=== PATIENT | male | born 1940 | race Caucasian/White ===

== ENCOUNTER 2022-02-01 23:09 | Inpatient (IN) ==
--- NOTE | 2022-02-01 23:28 | Emergency Department Note ---
History of Present Illness General Chief complaint: Hip Pain Time Seen by Provider: 02/01/22 23:15 History of Present Illness 81-year-old male presents reportedly from dementia unit had a nonsyncopal fall today was complaining of right hip pain. Per EMS patient had an outpatient mobile x-ray of his right hip which showed an acute impacted right intertrochanteric hip fracture. Patient is a very poor historian to his current presentation. Patient does complain of right hip pain when the right hip is palpated. There was no reported head trauma according to EMS. The patient reportedly is not on blood thinners. Home Medications Medication Instructions Recorded Confirmed Type acetaminophen 325 mg tablet 650 mg PO Q6H PRN FEVER/PAIN 02/01/22 02/02/22 History (Tylenol) albuterol sulfate 90 mcg/actuation 2 puff inhalation Q6H PRN Wheezing 02/01/22 02/02/22 History aerosol inhaler (Ventolin HFA) ascorbic acid (vitamin C) 500 mg 500 mg PO DAILY 02/01/22 02/02/22 History tablet (Vitamin C) ferrous sulfate 325 mg (65 mg 325 mg PO DAILY 02/01/22 02/02/22 History iron) tablet haloperidol lactate 2 mg/mL oral 2 mg PO Q8H PRN Agitation 02/01/22 02/02/22 History concentrate latanoprost 0.005 % eye drops 1 drp OPB PM 02/01/22 02/02/22 History omeprazole 20 mg capsule,delayed 20 mg PO DAILY 02/01/22 02/02/22 History release quetiapine 50 mg tablet,extended 50 mg PO BID 02/01/22 02/02/22 History release 24 hr (Seroquel XR) tadalafil 5 mg tablet 5 mg PO HS 02/01/22 02/02/22 History tamsulosin 0.4 mg capsule (Flomax) 0.4 mg PO DAILY 02/01/22 02/02/22 History umeclidinium 62.5 mcg-vilanterol 1 inh inhalation DAILY 02/01/22 02/02/22 History 25 mcg/actuation powdr for inhalation (Anoro Ellipta) Allergies Allergy/AdvReac Type Severity Reaction Status Date / Time fluticasone Allergy Unknown ON MED LIST Verified 02/01/22 23:57 [From Advair Diskus] salmeterol Allergy Unknown ON MED LIST Verified 02/01/22 23:57 [From Advair Diskus] Past Med/Surg History Social History Smoking Status: Former smoker Tobacco Type: Cigarettes Feels Safe at Home: Yes Immunizations: Past medical history dementia; social history lives in a dementia unit; nursing notes were reviewed and paperwork from the long term was reviewed by me Review of Systems Unobtainable due to cognitive status Physical Exam Vital Signs Vital Signs - 24 hr 02/01/22 23:29 02/02/22 00:09 Temperature 36.8 C Temperature Source Oral Pulse Rate 90 Pulse Rate [Apical] 90 Pulse Rhythm Regular Pulse Rhythm [Apical] Regular Pulse Strength Normal Pulse Strength [Apical] Normal Respiratory Rate 18 18 Respiratory Effort / Characteristics Non-Labored Spontaneous Non-Labored Spontaneous Respiratory Depth Normal Normal Respiratory Pattern Regular Regular Blood Pressure 134/55 L Blood Pressure [Right Arm] 139/53 L Blood Pressure Mean 81 Blood Pressure Mean [Right Arm] 81 Blood Pressure Position [Right Arm] Lying Pulse Oximetry 94 90 Oxygen Delivery Method Room Air Room Air Sepsis Recent Fever Within 48 Hours No Sepsis New/Unexplained Change in Mental Status No Sepsis Action Taken by Nursing No Action Required GENERAL: Patient is awake alert in no acute distress patient is resting comfortably and showing no signs of anxiety EYES: The conjunctivae are clear. The pupils are round and reactive. EARS, NOSE, MOUTH AND THROAT: The nose is without any evidence of any deformity. Mucous membranes are moist. Tongue is midline. NECK: The neck is nontender and supple. Full range of motion and there is no tenderness midline Head exam reveals no obvious trauma RESPIRATORY: Normal respiratory effort is noted there is no evidence of wheezing rhonchi or rales CARDIOVASCULAR: Regular rate and rhythm noted there no murmurs rubs or gallops normal S1 normal S2. GASTROINTESTINAL: The abdomen is soft. Abdomen is nontender. PELVIS: The Pelvis is stable. No tenderness to palpation is noted. BACK: No midline tenderness or or step-off noted range of motion in flexion e xtension as well as rotation no signs of muscle spasm noted MUSCULOSKELETAL/EXTREMITIES: Right right lower extremity is shortened and slightly rotated patient is neurovascularly intact distally left lower extremity is intact and normal exam SKIN: There is no obvious evidence of any rash. There are no petechiae, pallor or cyanosis noted. NEUROLOGIC: Patient is awake alert and oriented x1 Course Reevaluation(s) Reevaluation #1: Resting in no distress after IV fentanyl Time: 00:59 Consultations Consultation #1: Rodney hospitalist, Dr Campos for admission Time: 00:59 Administered Medications Discontinued Medications Fentanyl Citrate (Fentanyl Citrate 100 Mcg/2 Ml Vial) 25 mcg IV NOW STA Stop: 02/01/22 23:48 Last Admin: 02/02/22 00:04 Dose: 25 mcg Documented By: RUT Medical Decision Making Medical Records Attestation: I reviewed the patient's medical records. Home Medications Current Medication List: was personally reviewed by me Laboratory Data Attestation: I reviewed the patient's lab results. Result diagrams: 02/01/22 23:35 02/01/22 23:35 Lab Results 02/01/22 02/01/22 02/01/22 Range/Units 23:35 23:35 23:35 WBC 11.71 H (4.8-10.8) K/ul RBC 2.90 L (4.63-6.08) M/uL Hgb 9.3 L (14.0-18.0) g/dl Hct 27.2 L (40.1-51.0) % MCV 93.8 (80.0-100.0) fL MCH 32.1 (25.0-34.0) pg MCHC 34.2 (32.0-36.0) g/dL RDW Std Deviation 46.9 H (36.4-46.3) fL RDW Coeff of Silvino 13.6 (11.5-14.5) % Plt Count 275 (130-400) K/uL MPV 9.0 L (9.4-12.4) fL Immature Gran % (Auto) 0.5 % Neut % (Auto) 81.2 % Lymph % (Auto) 7.6 % [place] % (Auto) 10.6 % Eos % (Auto) 0.0 % Baso % (Auto) 0.1 % Neut # (Auto) 9.51 H (1.4-6.5) K/uL Lymph # (Auto) 0.89 L (1.2-3.4) K/uL [place] # (Auto) 1.24 H (0.24-0.82) K/uL Eos # (Auto) 0.00 (0-0.50) K/uL Baso # (Auto) 0.01 (0-0.2) K/uL Immature Gran # (Auto) 0.06 H (0.00-0.02) K/uL PT 10.9 (9.0-12.0) Seconds INR 1.0 (0.9-1.1) APTT 33.6 H (21.0-31.0) Seconds PTT Ratio 1.2 Sodium 133 L (136-145) mmol/L Potassium 4.8 (3.5-5.1) mmol/L Chloride 99 (98-107) mmol/L Carbon Dioxide 26 (21-32) mmol/L Anion Gap 8 (3-11) BUN 41 H (6-23) mg/dl Creatinine 1.24 (0.6-1.4) mg/dl Est Cr Clr Drug Dosing 46.1 ml/min Est GFR ( Amer) 63.7 ml/min Est GFR (Non-Af Amer) 54.9 ml/min BUN/Creatinine Ratio 33.1 H (10-20) Glucose 113 H (70-99(Fasting)) mg/dl Calcium 8.8 (8.5-10.1) mg/dl Total Bilirubin 0.9 (0.2-1.0) mg/dl AST 12 L (13-39) U/L ALT 10 (7-52) U/L Alkaline Phosphatase 80 (34-104) U/L Total Protein 5.8 L (6.0-8.3) gm/dl Albumin 3.6 (3.4-5.0) gm/dl Globulin 2.2 L (2.5-4.0) gm/dl Albumin/Globulin Ratio 1.6 (0.9-2) Urine Color Urine Appearance (Clear) Urine pH (4.5-7.5) Ur Specific [place] (1.000-1.030) Urine Protein (Negative) Urine Glucose (UA) (Negative) Urine Ketones (Negative) Urine Blood (Negative) Urine Nitrite (Negative) Urine Bilirubin (Negative) Urine Urobilinogen (Negative) Ur Leukocyte Esterase (Negative) SARS-CoV-2, RNA, NAAT (NEGATIVE) 02/01/22 02/01/22 Range/Units 23:55 23:58 WBC (4.8-10.8) K/ul RBC (4.63-6.08) M/uL Hgb (14.0-18.0) g/dl Hct (40.1-51.0) % MCV (80.0-100.0) fL MCH (25.0-34.0) pg MCHC (32.0-36.0) g/dL RDW Std Deviation (36.4-46.3) fL RDW Coeff of Silvino (11.5-14.5) % Plt Count (130-400) K/uL MPV (9.4-12.4) fL Immature Gran % (Auto) % Neut % (Auto) % Lymph % (Auto) % [place] % (Auto) % Eos % (Auto) % Baso % (Auto) % Neut # (Auto) (1.4-6.5) K/uL Lymph # (Auto) (1.2-3.4) K/uL [place] # (Auto) (0.24-0.82) K/uL Eos # (Auto) (0-0.50) K/uL Baso # (Auto) (0-0.2) K/uL Immature Gran # (Auto) (0.00-0.02) K/uL PT (9.0-12.0) Seconds INR (0.9-1.1) APTT (21.0-31.0) Seconds PTT Ratio Sodium (136-145) mmol/L Potassium (3.5-5.1) mmol/L Chloride (98-107) mmol/L Carbon Dioxide (21-32) mmol/L Anion Gap (3-11) BUN (6-23) mg/dl Creatinine (0.6-1.4) mg/dl Est Cr Clr Drug Dosing ml/min Est GFR ( Amer) ml/min Est GFR (Non-Af Amer) ml/min BUN/Creatinine Ratio (10-20) Glucose (70-99(Fasting)) mg/dl Calcium (8.5-10.1) mg/dl Total Bilirubin (0.2-1.0) mg/dl AST (13-39) U/L ALT (7-52) U/L Alkaline Phosphatase (34-104) U/L Total Protein (6.0-8.3) gm/dl Albumin (3.4-5.0) gm/dl Globulin (2.5-4.0) gm/dl Albumin/Globulin Ratio (0.9-2) Urine Color Yellow Urine Appearance Clear (Clear) Urine pH 7.5 (4.5-7.5) Ur Specific [place] 1.017 (1.000-1.030) Urine Protein Negative (Negative) Urine Glucose (UA) Negative (Negative) Urine Ketones Negative (Negative) Urine Blood Negative (Negative) Urine Nitrite Negative (Negative) Urine Bilirubin Negative (Negative) Urine Urobilinogen Negative (Negative) Ur Leukocyte Esterase Negative (Negative) SARS-CoV-2, RNA, NAAT NEGATIVE (NEGATIVE) Imaging Data Attestation: I personally reviewed and interpreted this imaging study as follows: My Impression: Chest x-ray interpreted by me negative for infiltrate, right hip x-rays interpreted by me positive for intertrochanteric hip fracture ECG Data Attestation: I personally reviewed and interpreted this ECG as follows: Additional Comments: EKG interpreted by me normal sinus rhythm rate of 91 normal intervals normal axis poor baseline no obvious ST segment elevation or depression MDM Narrative Medical decision making differential diagnosis includes right hip fracture sprain strain contusion. Plan is to check labs, check x-ray, Villarreal catheter, admit to the hospitalist with orthopedic consultation Patient was evaluated for a fall, with right hip pain and was found to have a right intertrochanteric hip fracture. Catheter was placed. Patient is not on blood thinners. Patient did not patient will be admitted for the medicine team to evaluate and consultation to orthopedic surgery. Impression & Plan Hip fracture, intertrochanteric Discharge Plan Visit Data Chief Complaint: Hip Pain ED Provider: Chase Parks Discharge Problem: Hip fracture, intertrochanteric Patient Disposition: Being Evaluated by Hospitalist Forms Stand Alone Forms: [facility] Prescriptions Prescriptions: No Action latanoprost 0.005 % Drops 1 drp OPB PM acetaminophen [Tylenol] 325 mg Tablet 650 mg PO Q6H MDD 3 GRAMS/24 HOURS PRN (Reason: FEVER/PAIN) ascorbic acid (vitamin C) [Vitamin C] 500 mg Tablet 500 mg PO DAILY tamsulosin [Flomax] 0.4 mg Capsule 0.4 mg PO DAILY ferrous sulfate 325 mg (65 mg iron) Tablet 325 mg PO DAILY omeprazole 20 mg Capsule,Delayed Release(Dr/Ec) 20 mg PO DAILY albuterol sulfate [Ventolin HFA] 90 mcg/actuation Hfa Aerosol Inhaler 2 puff INHALATION Q6H PRN (Reason: Wheezing) haloperidol lactate 2 mg/mL Concentrate 2 mg PO Q8H PRN (Reason: Agitation) tadalafil 5 mg Tablet 5 mg PO HS quetiapine [Seroquel XR] 50 mg Tablet Extended Release 24 Hr 50 mg PO BID Anoro Ellipta 62.5-25 mcg/actuation Blister With Device 1 inh INHALATION DAILY Referrals Referrals: Marie Martin [Primary Care Provider] -
[2022-02-01] MEDS ORDERED: fentaNYL citrate 100 MCG/2 ML VIAL IV STA (23:47)
[2022-02-02 00:10] LABS: Basophils # (auto) 0.01 K/uL (0-0.2); Basophils % (auto) 0.1 %; Hematocrit (blood only) 27.2 % (40.1-51.0); Hemoglobin 9.3 g/dl (14.0-18.0); Immature Granulocytes # (auto) 0.06 K/uL (0.00-0.02); Immature Granulocytes % (auto) 0.5 %; Lymphocytes # (auto) 0.89 K/uL (1.2-3.4); Lymphocytes % (auto) 7.6 %; Mean Corpuscular Hemoglobin 32.1 pg (25.0-34.0); Mean Corpuscular Hgb Conc 34.2 g/dL (32.0-36.0); Mean Corpuscular Volume 93.8 fL (80.0-100.0); Monocytes # (auto) 1.24 K/uL (0.24-0.82); Monocytes % (auto) 10.6 %; Neutrophils # (auto) 9.51 K/uL (1.4-6.5); Neutrophils % (auto) 81.2 %; Platelet Count 275 K/uL (130-400); RDW Coefficient of Variation 13.6 % (11.5-14.5); RDW Standard Deviation 46.9 fL (36.4-46.3); White Blood Count 11.71 K/ul (4.8-10.8)
[2022-02-02 00:25] LABS: Appearance Urine Clear (Clear); Bilirubin Urine Negative (Negative); Blood Urine Negative (Negative); Color Urine Yellow; Glucose Urine UA Negative (Negative); Ketones Urine Negative (Negative); Leukocyte Esterase Urine Negative (Negative); Nitrite Urine Negative (Negative); Protein Urine Negative (Negative); Specific Gravity Urine 1.017 (1.000-1.030); Urobilinogen Urine Negative (Negative); pH Urine 7.5 (4.5-7.5)
[2022-02-02 00:30] LABS: Albumin Globulin Ratio 1.6 (0.9-2); Albumin Level 3.6 gm/dl (3.4-5.0); BUN Creatinine Ratio 33.1 (10-20); Bilirubin,Total 0.9 mg/dl (0.2-1.0); Calcium 8.8 mg/dl (8.5-10.1); Creatinine Clr Calc Pharmacy 46.1 ml/min; Est GFR (African American) 63.7 ml/min; Est GFR (Non-African American) 54.9 ml/min; Globulin 2.2 gm/dl (2.5-4.0); Potassium 4.8 mmol/L (3.5-5.1); Total Protein 5.8 gm/dl (6.0-8.3)
[2022-02-02 00:40] LABS: Partial Thromboplastin Ratio 1.2; Partial Thromboplastin Time 33.6 Seconds (21.0-31.0); Prothrombin Time 10.9 Seconds (9.0-12.0)
[2022-02-02] MEDS ORDERED: SODIUM CHLORIDE 0.9% 1000ML 1,000 ML IV ONE (01:01)
[2022-02-02] MEDS ORDERED: amLODIPine BESYLATE 5 MG TAB PO ONE (01:29)
--- NOTE | 2022-02-02 01:31 | History & Physical Report ---
Date of Service February 02, 2022 Assessment & Plan (1) Hip fracture, intertrochanteric: Plan: Secondary to fall Hypertensive urgency secondary to above Possible underlying hypertension given borderline cardiomegaly on CXR hx CVA COPD, pulmonary hypertension on tadalafil, oxygenation stable chronic anemia, when close to baseline dementia Hyperglycemia rule out DM past tobacco abuse Medical telemetry given elevated BP Initiate amlodipine Orthopedics consult Re: Right hip fracture N.p.o. until patient seen by Orthopedics in a.m. Acceptable risk for cardiac complications resulting from prospective procedure Revised Cardiac Risk Index (RCRI): 1. High-risk type of surgery (examples include vascular and any open intraperitoneal or intrathoracic procedures). No 2. History of ischemic heart disease (history of myocardial infarction or positive exercise test, current compliant of chest pain considered to be secondary to myocardial ischemia, use of nitrate therapy, or ECG with pathological Q waves; do not count prior coronary revascularization procedure unless one of the other criteria for ischemic heart disease is present). No 3. History of heart failure. No 4. History of cerebrovascular disease. Yes 5. Diabetes mellitus requiring treatment with insulin. No 6. Preoperative serum creatinine >2.0. No Pt has revised cardiac index score of 1 points. (Class II Risk.) 6% 30-day risk of , IA, or cardiac arrest. Acceptable risk for cardiac complications if surgery recommended by Orthopedics and patient/family agreeable to attendant procedural benefits and risks.. Delirium precautions, Haldol as needed Check hemoglobin A1c DVT prophylaxis. SCDs Re: Possible surgery Recommend pharmacologic anticoagulation once bleeding risk is deemed to be minimal and negligible pending Orthopedics evaluation. Full code as per patient daughter, Ms. Sarah Couch. She requests updates from providers through [phone]. Text document was generated using [employer] voice recognition software. It may contain grammatical or spelling errors. Kindly contact undersigned for clarification of any documentation item in question. History of Present Illness Chief Complaint: Right hip fracture on x-ray Primary Care Provider: Marie Martin History obtained from patient, family, and records. Limited history from patient secondary to dementia. Medical history significant for CVA, COPD, pulmonary hypertension, chronic anemia (baseline hemoglobin of 10), dementia, past tobacco abuse. Patient fell on the ground trying to sit down on a chair at the group home yesterday as per group home staff. Achy right hip pain, patient had trouble getting up. Head trauma, no LOC, no chest pain, no SOB. Outpatient pelvis x-ray showed acute impacted right intertrochanteric fracture. Patient sent to the ER for evaluation. SBP noted to be 180s at the ER. 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 Allergies Allergy/AdvReac Type Severity Reaction Status Date / Time fluticasone Allergy Unknown ON MED LIST Verified 02/01/22 23:57 [From Advair Diskus] salmeterol Allergy Unknown ON MED LIST Verified 02/01/22 23:57 [From Advair Diskus] Home Medications Medication Instructions Recorded Confirmed Type acetaminophen 325 mg tablet 650 mg PO Q6H PRN FEVER/PAIN 02/01/22 02/02/22 History (Tylenol) albuterol sulfate 90 mcg/actuation 2 puff inhalation Q6H PRN Wheezing 02/01/22 02/02/22 History aerosol inhaler (Ventolin HFA) ascorbic acid (vitamin C) 500 mg 500 mg PO DAILY 02/01/22 02/02/22 History tablet (Vitamin C) ferrous sulfate 325 mg (65 mg 325 mg PO DAILY 02/01/22 02/02/22 History iron) tablet haloperidol lactate 2 mg/mL oral 2 mg PO Q8H PRN Agitation 02/01/22 02/02/22 History concentrate latanoprost 0.005 % eye drops 1 drp OPB PM 02/01/22 02/02/22 History omeprazole 20 mg capsule,delayed 20 mg PO DAILY 02/01/22 02/02/22 History release quetiapine 50 mg tablet,extended 50 mg PO BID 02/01/22 02/02/22 History release 24 hr (Seroquel XR) tadalafil 5 mg tablet 5 mg PO HS 02/01/22 02/02/22 History tamsulosin 0.4 mg capsule (Flomax) 0.4 mg PO DAILY 02/01/22 02/02/22 History umeclidinium 62.5 mcg-vilanterol 1 inh inhalation DAILY 02/01/22 02/02/22 History 25 mcg/actuation powdr for inhalation (Anoro Ellipta) Past Med/Surg History Social History Smoking Status: Former smoker Tobacco Type: Cigarettes Feels Safe at Home: Yes Review of Systems Review of Systems: Could not be reliably obtained secondary to dementia Physical Exam Physical Exam: GENERAL: Demented, uncomfortable, hard of hearing, no respiratory distress SKIN: Normal color, warm HEENT: [place] palpebral conjunctivae, no ptosis, dry buccal mucosa NECK : Supple, no tenderness CHEST : Decreased breath sounds, no tenderness HEART : RRR, no obvious murmurs ABDOMEN: Some distention, nontender EXTREMITIES : Right hip tenderness, minimal LE swelling, no other conspicuous deformities noted NEUROLOGIC : Demented, no facial asymmetry, gait and stance not assessed Results & Data Results & Data ([facility]) Vital Signs (Past 12 Hours) Vital Signs Temp Pulse Pulse Resp BP BP Pulse Ox 02/02/22 00:09 90 18 139/53 L 90 02/01/22 23:29 36.8 C 90 18 134/55 L 94 O2 Del Method 02/02/22 00:09 Room Air 02/01/22 23:29 Room Air Laboratory Results Laboratory Results WBC 11.71 K/ul (4.8-10.8) H 02/01/22 23:35 RBC 2.90 M/uL (4.63-6.08) L 02/01/22 23:35 Hgb 9.3 g/dl (14.0-18.0) L 02/01/22 23:35 Hct 27.2 % (40.1-51.0) L 02/01/22 23:35 MCV 93.8 fL (80.0-100.0) 02/01/22 23:35 MCH 32.1 pg (25.0-34.0) 02/01/22 23:35 MCHC 34.2 g/dL (32.0-36.0) 02/01/22 23:35 RDW Std Deviation 46.9 fL (36.4-46.3) H 02/01/22 23:35 RDW Coeff of Silvino 13.6 % (11.5-14.5) 02/01/22 23:35 Plt Count 275 K/uL (130-400) 02/01/22 23:35 MPV 9.0 fL (9.4-12.4) L 02/01/22 23:35 Immature Gran % (Auto) 0.5 % 02/01/22 23:35 Neut % (Auto) 81.2 % 02/01/22 23:35 Lymph % (Auto) 7.6 % 02/01/22 23:35 [place] % (Auto) 10.6 % 02/01/22 23:35 Eos % (Auto) 0.0 % 02/01/22 23:35 Baso % (Auto) 0.1 % 02/01/22 23:35 Neut # (Auto) 9.51 K/uL (1.4-6.5) H 02/01/22 23:35 Lymph # (Auto) 0.89 K/uL (1.2-3.4) L 02/01/22 23:35 [place] # (Auto) 1.24 K/uL (0.24-0.82) H 02/01/22 23:35 Eos # (Auto) 0.00 K/uL (0-0.50) 02/01/22 23:35 Baso # (Auto) 0.01 K/uL (0-0.2) 02/01/22 23:35 Immature Gran # (Auto) 0.06 K/uL (0.00-0.02) H 02/01/22 23:35 PT 10.9 Seconds (9.0-12.0) 02/01/22 23:35 INR 1.0 (0.9-1.1) 02/01/22 23:35 APTT 33.6 Seconds (21.0-31.0) H 02/01/22 23:35 PTT Ratio 1.2 02/01/22 23:35 Sodium 133 mmol/L (136-145) L 02/01/22 23:35 Potassium 4.8 mmol/L (3.5-5.1) 02/01/22 23:35 Chloride 99 mmol/L (98-107) 02/01/22 23:35 Carbon Dioxide 26 mmol/L (21-32) 02/01/22 23:35 Anion Gap 8 (3-11) 02/01/22 23:35 BUN 41 mg/dl (6-23) H 02/01/22 23:35 Creatinine 1.24 mg/dl (0.6-1.4) 02/01/22 23:35 Est Cr Clr Drug Dosing 46.1 ml/min 02/01/22 23:35 Est GFR ( Amer) 63.7 ml/min 02/01/22 23:35 Est GFR (Non-Af Amer) 54.9 ml/min 02/01/22 23:35 BUN/Creatinine Ratio 33.1 (10-20) H 02/01/22 23:35 Glucose 113 mg/dl (70-99(Fasting)) H 02/01/22 23:35 Calcium 8.8 mg/dl (8.5-10.1) 02/01/22 23:35 Total Bilirubin 0.9 mg/dl (0.2-1.0) 02/01/22 23:35 AST 12 U/L (13-39) L 02/01/22 23:35 ALT 10 U/L (7-52) 02/01/22 23:35 Alkaline Phosphatase 80 U/L (34-104) 02/01/22 23:35 Total Protein 5.8 gm/dl (6.0-8.3) L 02/01/22 23:35 Albumin 3.6 gm/dl (3.4-5.0) 02/01/22 23:35 Globulin 2.2 gm/dl (2.5-4.0) L 02/01/22 23:35 Albumin/Globulin Ratio 1.6 (0.9-2) 02/01/22 23:35 Urine Color Yellow 02/01/22 23:55 Urine Appearance Clear (Clear) 02/01/22 23: Urine pH 7.5 (4.5-7.5) 02/01/22 23:55 Ur Specific [place] 1.017 (1.000-1.030) 02/01/22 23:55 Urine Protein Negative (Negative) 02/01/22 23:55 Urine Glucose (UA) Negative (Negative) 02/01/22 23: Urine Ketones Negative (Negative) 02/01/22 23: Urine Blood Negative (Negative) 02/01/22 23: Urine Nitrite Negative (Negative) 02/01/22 23: Urine Bilirubin Negative (Negative) 02/01/22 23: Urine Urobilinogen Negative (Negative) 02/01/22 23: Ur Leukocyte Esterase Negative (Negative) 02/01/22 23:55 SARS-CoV-2, RNA, NAAT NEGATIVE (NEGATIVE) 02/01/22 23:58 Diagnostic Findings Chest x-ray as per my sign language interpreter patient borderline cardiomegaly, atelectasis, chronic interstitial changes EKG as per my interpretation :Rate 90, NSR, normal axis, T wave flattening lateral and septal leads
[2022-02-02] MEDS ORDERED: LORazepam 1 MG/1 ML SYR IV STA (01:34)
[2022-02-02] MEDS ORDERED: PROMETHAZINE HCL 6.25 MG in SODIUM CHLORIDE 0.9% 50 ML IV PRN (01:45)
[2022-02-02] MEDS ORDERED: XOPENEX/ATROVENT 1.25mg/0.5MG NEB COMBO NEB PRN (02:05)
[2022-02-02] MEDS ORDERED: LEVALBUTEROL 1.25MG/0.5ML NEB INH PRN (02:15)
[2022-02-02] MEDS ORDERED: IPRATROPIUM BROMIDE NEB SOLN 0.02% 2.5 ML VIAL INH PRN (02:15)
[2022-02-02] MEDS ORDERED: ACETAMINOPHEN 325 MG TAB PO PRN (03:06)
[2022-02-02] MEDS ORDERED: NALOXONE HCL 0.4 MG/1 ML VIAL/CARP IV PRN (03:06)
[2022-02-02] MEDS ORDERED: bisacodyL 10 MG SUPP PR PRN (03:06)
[2022-02-02] MEDS ORDERED: MAGNESIUM HYDROXIDE SUSP 30 ML UDC PO PRN (03:06)
[2022-02-02] MEDS ORDERED: INFLUENZA VACCINE HIGH DOSE PF 65+ 0.7 ML SYR IM ONE (03:33)
[2022-02-02] MEDS ORDERED: PNEUMOCOCCAL POLYSACCHARIDES 25 MCG/0.5 ML VIAL/SYR IM ONE (03:33)
[2022-02-02 05:56] LABS: Basophils # (auto) 0.01 K/uL (0-0.2); Basophils % (auto) 0.1 %; Hematocrit (blood only) 25.1 % (40.1-51.0); Hemoglobin 8.6 g/dl (14.0-18.0); Immature Granulocytes # (auto) 0.06 K/uL (0.00-0.02); Immature Granulocytes % (auto) 0.6 %; Lymphocytes # (auto) 1.11 K/uL (1.2-3.4); Lymphocytes % (auto) 10.6 %; Mean Corpuscular Hemoglobin 31.7 pg (25.0-34.0); Mean Corpuscular Hgb Conc 34.3 g/dL (32.0-36.0); Mean Corpuscular Volume 92.6 fL (80.0-100.0); Mean Platelet Volume 9.1 fL (9.4-12.4); Monocytes # (auto) 1.32 K/uL (0.24-0.82); Monocytes % (auto) 12.6 %; Neutrophils # (auto) 7.97 K/uL (1.4-6.5); Neutrophils % (auto) 76.1 %; Platelet Count 245 K/uL (130-400); RDW Coefficient of Variation 13.8 % (11.5-14.5); RDW Standard Deviation 46.9 fL (36.4-46.3); Red Blood Count 2.71 M/uL (4.63-6.08); White Blood Count 10.47 K/ul (4.8-10.8)
[2022-02-02 06:20] LABS: Estimated Average Glucose 108 mg/dl; Hemoglobin A1C 5.4 % (4.5-5.6)
[2022-02-02 06:28] LABS: BUN Creatinine Ratio 32.8 (10-20); Calcium 8.4 mg/dl (8.5-10.1); Creatinine Clr Calc Pharmacy 47.3 ml/min; Est GFR (African American) 66.9 ml/min; Est GFR (Non-African American) 57.8 ml/min; Potassium 4.8 mmol/L (3.5-5.1)
--- NOTE | 2022-02-02 08:02 | XRay Report ---
XR chest 1V portable HISTORY: 81 years-old Male hip fx acute chest trauma status post fall COMPARISON: None TECHNIQUE: Supine AP view of the chest FINDINGS: Cardiac silhouette is mildly enlarged. 2 cm right midlung nodular opacity. No pneumothorax, pleural e ffusion, airspace consolidation or overt pulmonary edema. Bones appear grossly intact. IMPRESSION: 1. Mild cardiac megaly without acute process. 2. 2 mm right midlung nodular opacity is likely related to summation density with overlying pulmonary vasculature. A pulmonary nodule is considered less likely. Correlate with prior imaging. ACT 112: Negative or not required by law. The above report was generated using voice recognition software. It may contain grammatical, syntax o r spelling errors. Electronically signed by: Spenser Chavez M.D. 02/02/2022 8:01 AM
[2022-02-02] MEDS: FERROUS SULFATE 325 MG TAB PO SCH (08:07)
[2022-02-02] MEDS: PANTOprazole 40 MG TAB PO SCH (08:08)
[2022-02-02] MEDS: TAMSULOSIN HCL 0.4 MG CAP PO SCH (08:09)
[2022-02-02] MEDS: UMECLIDINIUM/VILANTEROL 62.5/25MCG 7 PUFFS/INHALER INH SCH (08:09)
[2022-02-02] MEDS: QUEtiapine FUMARATE 50 MG TABCR PO SCH ×2 (08:09→20:00)
--- NOTE | 2022-02-02 08:15 | XRay Report ---
XR hip RT min 2V HISTORY: 81 years-old Male fall, pain acute right hip pain status post fall COMPARISON: None TECHNIQUE: 2 views of the right hip FINDINGS: There is an acute comminuted intertrochanteric fracture of the right femur which demonstrates impacti on. The lesser trochanteric fracture is displaced medially several millimeters. No dislocation. Moder ate right hip osteoarthritis. Mild lateral hip soft tissue swelling. IMPRESSION: Acute comminuted and impacted intratrochanteric fracture of the right femur. ACT 112: Negative or not required by law. The above report was generated using voice recognition software. It may contain grammatical, syntax o r spelling errors. Electronically signed by: Spenser Chavez M.D. 02/02/2022 8:13 AM
--- NOTE | 2022-02-02 09:08 | Orthopedic Consultation ---
Date of Consultation February 02, 2022 Assessment & Plan (1) Hip fracture, intertrochanteric: Right intertrochanteric hip fracture. Dr. Webb and myself have reviewed the x-rays. Patient will require a trochanteric femoral nailing. Patient was ambulatory at his nursing facility. I have discussed surgery with the family and they are in agreement to have him undergo the right TFN. We will plan for that this afternoon with Dr. Webb. I have spoken to Dr. Singh. Patient's hemoglobin has dropped down to 8.6. Plan to transfuse 1 unit of PRBCs prior to or at the time of surgery. History of Present Illness Reason for Consultation: Right hip fracture Attending Physician: Thor Singh MD History of Present Illness Patient is a 81-year-old male who resides at a nursing facility. Patient has a history of dementia and no history is taken from him at this time. History is taken from his chart and I have also spoken to his POA. Patient per family resides at a nursing facility. He was ambulatory at the nursing facility but was having increased falls there. Patient's family states that his falls were mainly trying to get in and out of bed. Apparently the patient was trying to sit into a chair at the facility and ended up falling. He began complaining of right hip pain and was having difficulty weightbearing. An outpatient x-ray was ordered and showed right intertrochanteric hip fracture. He was then sent to the emergency room here at [facility]. He was seen by the staff. Further x- rays were taken. He was thusly admitted by the [facility] service and we have been asked to take care of his hip fracture. Currently the patient is pleasantly confused. Does not answer any questions. Does not appear to be in any distress. Allergies Allergy/AdvReac Type Severity Reaction Status Date / Time fluticasone Allergy Unknown ON MED LIST Verified 02/01/22 23:57 [From Advair Diskus] salmeterol Allergy Unknown ON MED LIST Verified 02/01/22 23:57 [From Advair Diskus] Home Medications Medication Instructions Recorded Confirmed Type acetaminophen 325 mg tablet 650 mg PO Q6H PRN FEVER/PAIN 02/01/22 02/02/22 History (Tylenol) albuterol sulfate 90 mcg/actuation 2 puff inhalation Q6H PRN Wheezing 02/01/22 02/02/22 History aerosol inhaler (Ventolin HFA) ascorbic acid (vitamin C) 500 mg 500 mg PO DAILY 02/01/22 02/02/22 History tablet (Vitamin C) ferrous sulfate 325 mg (65 mg 325 mg PO DAILY 02/01/22 02/02/22 History iron) tablet haloperidol lactate 2 mg/mL oral 2 mg PO Q8H PRN Agitation 02/01/22 02/02/22 History concentrate latanoprost 0.005 % eye drops 1 drp OPB PM 02/01/22 02/02/22 History omeprazole 20 mg capsule,delayed 20 mg PO DAILY 02/01/22 02/02/22 History release quetiapine 50 mg tablet,extended 50 mg PO BID 02/01/22 02/02/22 History release 24 hr (Seroquel XR) tadalafil 5 mg tablet 5 mg PO HS 02/01/22 02/02/22 History tamsulosin 0.4 mg capsule (Flomax) 0.4 mg PO DAILY 02/01/22 02/02/22 History umeclidinium 62.5 mcg-vilanterol 1 inh inhalation DAILY 02/01/22 02/02/22 History 25 mcg/actuation powdr for inhalation (Anoro Ellipta) Patient History Medical History (Updated 02/02/22 @ 10:26 by Kodak Disla MD) Anemia Chronic anemia COPD (chronic obstructive pulmonary disease) CVA (cerebral vascular accident) Pulmonary hypertension Social History Smoking Status: Former smoker Tobacco Type: Cigarettes Hx Alcohol Use: No Hx Substance Use: No Preferred Language: Thai Communication Ability: Unable Communication Ability Comment: pt unable to communicate, have not spoke to Sarah Rod Buster Helper Required: No Beliefs That Will Affect Care: None Current Living Situation: [facility] Current Living Situation Comment: locked unit Assistive Devices: None Physical Exam Physical Exam: Patient is a 81-year-old white male with dementia. Patient is pleasantly confused. Does not follow commands. Does not appear to be in distress. On examination of his right lower extremity, he is mildly shortened and externally rotated compared to his left lower extremity. He has mild discomfort on palpation of his lateral right hip. No attempts were made to do range of motion secondary to hip fracture. Range of motion of the knee is limited secondary to hip fracture. The knee is nontender on palpation and there appears to be no effusion. He does not appear to have any pain in his right ankle and range of motion passively appears to be within normal limits. No obvious deformities of the left lower extremity at this time he does not appear to be in pain with the left hip, knee, ankle. He has a noted removable splint on his left wrist. Questionable previous scar in the volar aspect of the wrist. I can take him through gentle range of motion passively and he does not appear to have any pain with this. Otherwise upper extremities appear benign at this time. Distal pulses are equal bilaterally of the upper and lower extremities. Results & Data ([facility]) Vital Signs (Past 12 Hours) Vital Signs Temp Pulse Pulse Resp BP BP Pulse Ox 02/02/22 07:05 37.0 C 75 18 118/53 L 98 02/02/22 05:42 74 02/02/22 02:40 02/02/22 02:30 36.8 C 84 16 101/54 L 92 02/02/22 02:20 93 H 18 170/68 H 98 02/02/22 02:00 93 H 18 170/68 H 98 02/02/22 00:09 90 18 139/53 L 90 02/01/22 23:29 36.8 C 90 18 134/55 L 94 O2 Del Method O2 Flow Rate 02/02/22 07:05 Nasal Cannula 2 02/02/22 05:42 02/02/22 02:40 Nasal Cannula 2 02/02/22 02:30 Room Air 02/02/22 02:20 Nasal Cannula 2 02/02/22 02:00 Nasal Cannula 2 02/02/22 00:09 Room Air 02/01/22 23:29 Room Air Laboratory Results Laboratory Results WBC 10.47 K/ul (4.8-10.8) 02/02/22 05:31 RBC 2.71 M/uL (4.63-6.08) L 02/02/22 05:31 Hgb 8.6 g/dl (14.0-18.0) L 02/02/22 05:31 Hct 25.1 % (40.1-51.0) L 02/02/22 05:31 MCV 92.6 fL (80.0-100.0) 02/02/22 05:31 MCH 31.7 pg (25.0-34.0) 02/02/22 05:31 MCHC 34.3 g/dL (32.0-36.0) 02/02/22 05:31 RDW Std Deviation 46.9 fL (36.4-46.3) H 02/02/22 05:31 RDW Coeff of Silvino 13.8 % (11.5-14.5) 02/02/22 05:31 Plt Count 245 K/uL (130-400) 02/02/22 05:31 MPV 9.1 fL (9.4-12.4) L 02/02/22 05:31 Immature Gran % (Auto) 0.6 % 02/02/22 05:31 Neut % (Auto) 76.1 % 02/02/22 05:31 Lymph % (Auto) 10.6 % 02/02/22 05:31 Humphreys % (Auto) 12.6 % 02/02/22 05:31 Eos % (Auto) 0.0 % 02/02/22 05:31 Baso % (Auto) 0.1 % 02/02/22 05:31 Neut # (Auto) 7.97 K/uL (1.4-6.5) H 02/02/22 05:31 Lymph # (Auto) 1.11 K/uL (1.2-3.4) L 02/02/22 05:31 Humphreys # (Auto) 1.32 K/uL (0.24-0.82) H 02/02/22 05:31 Eos # (Auto) 0.00 K/uL (0-0.50) 02/02/22 05:31 Baso # (Auto) 0.01 K/uL (0-0.2) 02/02/22 05:31 Immature Gran # (Auto) 0.06 K/uL (0.00-0.02) H 02/02/22 05:31 PT 10.9 Seconds (9.0-12.0) 02/01/22 23:35 INR 1.0 (0.9-1.1) 02/01/22 23:35 APTT 33.6 Seconds (21.0-31.0) H 02/01/22 23:35 PTT Ratio 1.2 02/01/22 23:35 Sodium 133 mmol/L (136-145) L 02/02/22 05:31 Potassium 4.8 mmol/L (3.5-5.1) 02/02/22 05:31 Chloride 101 mmol/L (98-107) 02/02/22 05:31 Carbon Dioxide 26 mmol/L (21-32) 02/02/22 05:31 Anion Gap 6 (3-11) 02/02/22 05:31 BUN 39 mg/dl (6-23) H 02/02/22 05:31 Creatinine 1.19 mg/dl (0.6-1.4) 02/02/22 05:31 Est Cr Clr Drug Dosing 47.3 ml/min 02/02/22 05:31 Est GFR ( Amer) 66.9 ml/min 02/02/22 05:31 Est GFR (Non-Af Amer) 57.8 ml/min 02/02/22 05:31 BUN/Creatinine Ratio 32.8 (10-20) H 02/02/22 05:31 Glucose 122 mg/dl (70-99(Fasting)) H 02/02/22 05:31 Estimat Average Glucose 108 mg/dl 02/01/22 23:35 Hemoglobin A1c 5.4 % (4.5-5.6) 02/01/22 23:35 Calcium 8.4 mg/dl (8.5-10.1) L 02/02/22 05:31 Magnesium 2.0 mg/dl (1.7-2.4) 02/02/22 01:28 Total Bilirubin 0.9 mg/dl (0.2-1.0) 02/01/22 23:35 AST 12 U/L (13-39) L 02/01/22 23:35 ALT 10 U/L (7-52) 02/01/22 23:35 Alkaline Phosphatase 80 U/L (34-104) 02/01/22 23:35 Total Protein 5.8 gm/dl (6.0-8.3) L 02/01/22 23:35 Albumin 3.6 gm/dl (3.4-5.0) 02/01/22 23:35 Globulin 2.2 gm/dl (2.5-4.0) L 02/01/22 23:35 Albumin/Globulin Ratio 1.6 (0.9-2) 02/01/22 23:35 TSH 2.501 uIu/ml (0.300-4.500) 02/01/22 23:35 Urine Color Yellow 02/01/22 23:55 Urine Appearance Clear (Clear) 02/01/22 23:55 Urine pH 7.5 (4.5-7.5) 02/01/22 23:55 Ur Specific [place] 1.017 (1.000-1.030) 02/01/22 23:55 Urine Protein Negative (Negative) 02/01/22 23:55 Urine Glucose (UA) Negative (Negative) 02/01/22 23:55 Urine Ketones Negative (Negative) 02/01/22 23:55 Urine Blood Negative (Negative) 02/01/22 23:55 Urine Nitrite Negative (Negative) 02/01/22 23:55 Urine Bilirubin Negative (Negative) 02/01/22 23:55 Urine Urobilinogen Negative (Negative) 02/01/22 23:55 Ur Leukocyte Esterase Negative (Negative) 02/01/22 23:55 SARS-CoV-2, RNA, NAAT NEGATIVE (NEGATIVE) 02/01/22 23:58 Blood Type O Positive 02/02/22 05:31 Antibody Screen NEGATIVE 02/02/22 05:31 Impressions Hip X-Ray 02/01/22 23:24 XR hip RT min 2V HISTORY: 81 years-old Male fall, pain acute right hip pain status post fall COMPARISON: None TECHNIQUE: 2 views of the right hip FINDINGS: There is an acute comminuted intertrochanteric fracture of the right femur which demonstrates impaction. The lesser trochanteric fracture is displaced medially several millimeters. No dislocation. Moderate right hip osteoarthritis. Mild lateral hip soft tissue swelling. IMPRESSION: Acute comminuted and impacted intratrochanteric fracture of the right femur. ACT 112: Negative or not required by law. The above report was generated using voice recognition software. It may contain grammatical, syntax or spelling errors. Electronically signed by: Spenser Chavez M.D. 02/02/2022 8:13 AM
[2022-02-02] MEDS ORDERED: SODIUM CHLORIDE 0.9% 250 ML IV PRN (10:29)
[2022-02-02] MEDS ORDERED: ACETAMINOPHEN 325 MG TAB PO ONE (10:29)
--- NOTE | 2022-02-02 10:59 | Communication Note ---
Date of Service: February 02, 2022 81 yo M w/ h/o dementia, CVA, COPD, Pul HTN, Chr anemia (baseline 10), past tobacco use was seen and examined at bedside as f/u of fall and intertrochant tony fracture right hip. Patient was lying in bed, on 2 L nasal cannula oxygen, confused, calm, not oriented, ROS was not possible. Discussed with orthopedics, plan for to take him to the OR today, and due to dropping hemoglobin would like 1 unit PRBC prior to surgery. Called patient's daughter Sarah over the phone and went through the pros and cons of blood transfusion, ordering 1 unit PRBC. H&H in the evening. Transfuse for hemoglobin less than 8 or symptomatic anemia. On examination, patient on 2 L oxygen, heart/lung/abdomen examination WNL. [place]. Demented. Right hip bruise noted. For details, please see today's H&P note.
--- NOTE | 2022-02-02 14:36 | Anesthesiology Consultation ---
Date of Service February 02, 2022 Assessment & Plan (1) Encounter for pre-operative examination: Chart Review Chart Review: Acceptable Risk for Surgery (receiving 1 unit PRBC's preop per medicine) History Surgery Operation Date: 02/02/22 08:10 Proposed Procedures p Right Troch Nail - Spenser Webb, Height/Weight Height: 6 ft Weight: 66.4 kg Allergies Allergy/AdvReac Type Severity Reaction Status Date / Time fluticasone Allergy Unknown ON MED LIST Verified 02/01/22 23:57 [From Advair Diskus] salmeterol Allergy Unknown ON MED LIST Verified 02/01/22 23:57 [From Advair Diskus] Medications Home Medications Medication Instructions Recorded Confirmed Last Taken acetaminophen 325 mg tablet 650 mg PO Q6H PRN FEVER/PAIN 02/01/22 02/02/2202/01 13:55 (Tylenol) albuterol sulfate 90 mcg/actuation 2 puff inhalation Q6H PRN Wheezing 02/01/22 02/02/22 Unknown aerosol inhaler (Ventolin HFA) ascorbic acid (vitamin C) 500 mg 500 mg PO DAILY 02/01/22 02/02/22 02/01/22 tablet (Vitamin C) ferrous sulfate 325 mg (65 mg 325 mg PO DAILY 02/01/22 02/02/22 02/01/22 iron) tablet haloperidol lactate 2 mg/mL oral 2 mg PO Q8H PRN Agitation 02/01/22 02/02/22 02/01/22 21:00 concentrate latanoprost 0.005 % eye drops 1 drp OPB PM 02/01/22 02/02/22 02/01/22 omeprazole 20 mg capsule,delayed 20 mg PO DAILY 02/01/22 02/02/22 02/01/22 release quetiapine 50 mg tablet,extended 50 mg PO BID 02/01/22 02/02/22 02/01/22 release 24 hr (Seroquel XR) tadalafil 5 mg tablet 5 mg PO HS 02/01/22 02/02/22 02/01/22 tamsulosin 0.4 mg capsule (Flomax) 0.4 mg PO DAILY 02/01/22 02/02/22 02/01/22 umeclidinium 62.5 mcg-vilanterol 1 inh inhalation DAILY 02/01/22 02/02/22 02/01/22 25 mcg/actuation powdr for inhalation (Anoro Ellipta) Active Medications Generic Name Dose Route Start Last Admin Trade Name Karen PRN Reason Stop Dose Admin Acetaminophen 650 mg 02/02/22 10:29 02/02/22 12:38 Acetaminophen 325 Mg Tab PO 02/02/22 18:30 650 mg PRE-TREAT ONE Administration Ferrous Sulfate 325 mg 02/02/22 09:00 02/02/22 08:07 Ferrous Sulfate 325 Mg Tab PO 03/04/22 08:59 Not Given DAILY SHEILA Sodium Chloride 1,000 mls @ 60 mls/hr 02/02/22 01:01 02/02/22 03:17 Nss 1000ml IV 02/02/22 17:40 60 mls/hr .[id number] ONE Administration Miscellaneous 1 each 02/02/22 08:00 02/02/22 12:38 Tadalafil (For Bph): Order Awaiting Action N/A 03/04/22 07:59 Not Given QS SHEILA Pantoprazole Sodium 40 mg 02/02/22 09:00 02/02/22 08:08 Pantoprazole 40 Mg Tab PO 03/04/22 08:59 Not Given DAILY SHEILA Quetiapine Fumarate 50 mg 02/02/22 09:00 02/02/22 08:09 Quetiapine Fumarate 50 Mg Tabcr PO 03/04/22 08:59 Not Given BID SHEILA Tamsulosin HCl 0.4 mg 02/02/22 09:00 02/02/22 08:09 Tamsulosin Hcl 0.4 Mg Cap PO 03/04/22 08:59 Not Given DAILY SHEILA Umeclidinium/Vilanterol 1 puffs 02/02/22 09:00 02/02/22 08:09 Umeclidinium/Vilanterol 62.5/25mcg 7 Puffs/Inhaler INH 03/04/22 08:59 Not Given DAILY SHEILA Past Medical History Medical History (Updated 02/02/22 @ 14:35 by Albert Hensley MD) Anemia Chronic anemia COPD (chronic obstructive pulmonary disease) CVA (cerebral vascular accident) Dementia Pulmonary hypertension Past Surgical History Surgical History (Updated 02/02/22 @ 14:34 by Albert Hensley MD) No significant past surgical history Social History Smoking Status: Former smoker Hx Alcohol Use: No Hx Substance Use: No Physical Exam Vital Signs Last Vital Signs Temp 36.8 C 02/02/22 12:49 Pulse 85 02/02/22 14:00 Resp 18 02/02/22 10:46 BP 152/62 H 02/02/22 14:00 Pulse Ox 93 02/02/22 14:00 O2 Del Method 02/02/22 10:46 O2 Flow Rate 2 02/02/22 10:46 Testing Laboratory Results 02/02/22 05:31 02/02/22 05:31 PT 10.9 Seconds (9.0-12.0) 02/01/22 23:35 INR 1.0 (0.9-1.1) 02/01/22 23:35 APTT 33.6 Seconds (21.0-31.0) H 02/01/22 23:35 Hemoglobin A1c 5.4 % (4.5-5.6) 02/01/22 23:35 Urine Color Yellow 02/01/22 23:55 Urine Appearance Clear (Clear) 02/01/22 23:55 Urine pH 7.5 (4.5-7.5) 02/01/22 23:55 Ur Specific [place] 1.017 (1.000-1.030) 02/01/22 23:55 Urine Protein Negative (Negative) 02/01/22 23:55 Urine Glucose (UA) Negative (Negative) 02/01/22 23:55 Urine Ketones Negative (Negative) 02/01/22 23:55 Urine Nitrite Negative (Negative) 02/01/22 23:55 Ur Leukocyte Esterase Negative (Negative) 02/01/22 23:55 Blood Type O Positive 02/02/22 05:31 Antibody Screen NEGATIVE 02/02/22 05:31 Electrocardiogram Date: 02/02/22 Findings: + NSR @ (91) and + poor R wave progression Chest X-Ray Date: 02/01/22 Findings: + NAD and + cardiomegaly (mild)
[2022-02-02] MEDS ORDERED: ONDANSETRON INJ 2 MG/ML 2 ML VIAL ONE (14:55)
[2022-02-02] MEDS ORDERED: fentaNYL citrate 100 MCG/2 ML VIAL ONE (14:55)
[2022-02-02] MEDS ORDERED: ROCURONIUM BROMIDE 10 MG/ML 5 ML VIAL IV ONE ×3 (14:55→16:22)
[2022-02-02] MEDS ORDERED: PROPOFOL IV EMULSION 10 MG/ML 20 ML VIAL IV ONE (14:55)
[2022-02-02] MEDS ORDERED: BUPIVACAINE 0.25% 30 ML VIAL ONE (15:07)
[2022-02-02] MEDS ORDERED: ceFAZolin 2000MG 2,000 MG/15 ML SYR IV ONE (15:39)
[2022-02-02] MEDS ORDERED: ceFAZolin 2,000 MG/15 ML IV PUSH IV ONE (15:39)
--- NOTE | 2022-02-02 15:44 | History & Physical Bridge Note ---
Date of Service February 02, 2022 History & Physical Bridge Note I have examined the patient, reviewed the History & Physical and in the interval since the performance of the History & Physical I have noted the following changes of clinical significance: no changes noted Patient seen and evaluated he is demented. I did discussion with his daughter Sarah who is power of sports attorney regarding fixation of his intertrochanteric femur fracture with a trochanteric fixation nail. We had a lengthy discussion regarding right hip nailing including risk and benefits which are included to but not limited to: Infection, neurovascular injury, DVT, nonunion, malunion, hardware failure and need for subsequent surgical procedures. After reviewing these she elected proceed with surgical intervention and telephone consent was obtained.
[2022-02-02] MEDS ORDERED: DEXAMETHASONE SOD INJ 4 MG/ML VIAL ONE (16:22)
[2022-02-02] MEDS ORDERED: PHENYLEPHRINE 100MCG/ML 5ML SYR ONE (16:23)
[2022-02-02] MEDS ORDERED: ePHEDrine sulfate 50 MG/ML SYR ONE (16:38)
[2022-02-02] MEDS ORDERED: GLYCOPYRROLATE 0.2 MG/ML VIAL ONE (17:27)
[2022-02-02] MEDS ORDERED: NEOSTIGMINE METHYLSULFATE 1 MG/ML 10ML VIAL ONE (17:27)
--- NOTE | 2022-02-02 17:34 | Post Operative Brief Note ---
Immediate Post Op Note v1 Date of Surgery February 02, 2022 Pre & Post Diagnosis Operation Date: 02/02/22 08:10 Pre-Op Diagnosis: Right intertrochanteric hip fracture. Post-Op Diagnosis: Right intertrochanteric hip fracture. I identified the patient and participated in the time-out.: Yes Procedure Operation Date: 02/02/22 08:10 Actual Procedures p Right Trochanteric Nail (Right) - Spenser Webb DO Surgeon Spenser Webb, Retail Event Coordinator None Estimated Blood Loss 100 Findings Consistent with Post-Op Diagnosis See dictation Drains Villarreal Catheter Complications None
--- NOTE | 2022-02-02 17:39 | Operative Report ---
Post Operative Report Pre & Post Diagnosis Operation Date: 02/02/22 08:10 Pre-Op Diagnosis: Right intertrochanteric hip fracture. Post-Op Diagnosis: Right intertrochanteric hip fracture. I identified the patient and participated in the time-out.: Yes Procedure Operation Date: 02/02/22 08:10 Actual Procedures p Right Trochanteric Nail (Right) - Spenser Webb DO Surgeon Spenser Webb DO Marine Fisheries Technician None Estimated Blood Loss 100 Findings Consistent with Post-Op Diagnosis See dictation Specimens None Complications None Indications 81-year-old male pleasantly demented presenting after sustaining a fall onto his right side with chief complaint of right hip pain. Radiographs demonstrated a right intertrochanteric femur fracture. He was admitted to medical service and orthopedics was consulted for operative management. I met with the patient p reoperatively and had a discussion with his daughter who is power of brush and broom clipper. We had discussion regarding risk benefits potential complications of right hip cephalomedullary nail. There is include but are not limited to: Infection, neurovascular injury, DVT, nonunion, malunion, hardware failure and need for future surgery. After reviewing these she elected to proceed with surgical intervention and written consent was obtained. Description of Procedure Implants: Synthes TFN a 11 mm x 400 mm right 130 degree, 95 mm fenestrated screw, 5 mm x 42 mm stardrive locking screw Procedure: Patient was appropriately identified and the right lower extremity was marked in the preoperative holding area. He was then taken back to the operative suite where he received general anesthesia. He received antibiotics per protocol. He was then transferred over to the manual fracture table. Using the assistance of C arm fluoroscopy his fracture was reduced to a satisfactory position. He was then prepped and draped in the standard orthopedic fashion and timeout was then performed. A 3 cm incision superior to the tip of the trochanter was then made through skin subcutaneous tissue and gluteal fascia. A threaded guidewire was then inserted through the tip of the trochanter advanced into the medullary canal. Canal opening reamer was used to open up the proximal canal. A ball-tipped guidewire was then inserted through the tip of the trochanter advanced inside the medullary canal to the distal aspect of the femur. Length was then measured and determined to be 400 mm implant. The canal was then sequentially reamed up to a size 12.5 mm reamer to accommodate an 11 mm nail. A 11 mm x 400 mm TFN nail was then inserted over the ball-tipped g uidewire. Ball-tipped guidewire was then removed. Proximal outrigger was then attached. The nail was impacted down to satisfactory level and incision was made for lag screw through the skin subcutaneous tissue and IT band fascia. Triple sleeve guide was then placed and compressed down to bone. A threaded guidewire was then inserted through the lateral cortex and advanced into the femoral head and a center center position just beneath the subchondral bone. Length of the implant was measured and determined to be 95 mm. A lateral cortical reamer was first used followed by a tapered reamer set to 95 mm. A 95 mm fenestrated screw was then inserted over the guidewire and then compressed and the implant was then locked statically at the proximal aspect. Guidewire and outrigger was then removed. This demonstrated good position of the implant and the femoral head/canal and reduction of the fracture. Proximal outrigger was then removed. Attention was then turned to placement of distal interlock. Using perfect [place] fluoroscopy the proximal static interlock was localized. Incision was then made through skin subcutaneous tissue and IT band fascia. A drill was then used to drill bicortically and the length was measured and determined to be 42 mm screw. A 5 mm x 42 mm locking screw was then inserted. Final radiographs were obtained demonstrating good position of the locking screw and position of the implant. Wounds were then copiously irrigated using normal saline solution. 30 cc of quarter percent Marcaine was then injected in subcutaneous tissues. Deep fascia was closed using 0 Vicryl in a running fashion followed by 2-0 Vicryl for subcutaneous tissue and jonathan for skin. Sterile dressings of Xeroform 4 x 4 gauze ABDs and tape and Tegaderm was applied. The patient tolerated the procedure well and was taken to recovery room in hemodynamically stable condition. I attest to the content of the Intraoperative Record and any orders documented therein. Any exceptions are noted below.
--- NOTE | 2022-02-02 18:31 | Anesthesiology Progress Note ---
Date of Service February 02, 2022 Anesthesia Post Procedure Vital Signs Vital Signs: Temp Pulse Pulse Resp BP BP BP 02/02/22 18:15 36.4 C L 71 21 124/57 L 02/02/22 18:05 71 23 111/61 02/02/22 17:55 88 22 122/77 02/02/22 17:45 36.6 C 87 15 121/70 02/02/22 15:00 37.5 C 87 22 153/68 H 02/02/22 14:55 37.5 C 87 20 153/68 H 02/02/22 14:37 02/02/22 14:00 85 152/62 H 02/02/22 13:45 86 127/65 02/02/22 13:26 84 127/65 02/02/22 12:49 36.8 C 81 116/43 L 02/02/22 10:46 36.8 C 95 H 18 121/58 L 02/02/22 07:05 37.0 C 75 18 118/53 L 02/02/22 05:42 74 02/02/22 02:40 02/02/22 02:30 36.8 C 84 16 101/54 L 02/02/22 02:20 93 H 18 170/68 H 02/02/22 02:00 93 H 18 170/68 H 02/02/22 00:09 90 18 139/53 L 02/01/22 23:29 36.8 C 90 18 134/55 L Pulse Ox O2 Del Method O2 Flow Rate 02/02/22 18:15 98 Nasal Cannula 2 02/02/22 18:05 97 Nasal Cannula 2 02/02/22 17:55 100 Oxymask 9 02/02/22 17:45 96 Oxymask 9 02/02/22 15:00 93 02/02/22 14:55 93 Room Air 02/02/22 14:37 Room Air 02/02/22 14:00 93 02/02/22 13:45 92 02/02/22 13:26 94 02/02/22 12:49 95 02/02/22 10:46 92 Nasal Cannula 2 02/02/22 07:05 98 Nasal Cannula 2 02/02/22 05:42 02/02/22 02:40 Nasal Cannula 2 02/02/22 02:30 92 Room Air 10/26/22 02:20 98 Nasal Cannula 2 02/02/22 02:00 98 Nasal Cannula 2 02/02/22 00:09 90 Room Air 02/01/22 23:29 94 Room Air Pain Intensity Right Hip: Pain Intensity: 7 Transfer of Care Handoff Completed per policy Notes Mental Status: alert / awake / arousable and participated in evaluation Patient Amnestic to Procedure: Yes Nausea / Vomiting: adequately controlled Pain: adequately controlled Airway Patency, RR, SpO2: stable & adequate BP & HR: stable & adequate Hydration State: stable & adequate Anesthetic Complications: no major complications apparent
[2022-02-02] MEDS: oxyCODONE HCL IR 5 MG TAB (IMMEDIATE RELEASE) PO PRN (20:26)
--- NOTE | 2022-02-02 20:44 | Fluoroscopy Report ---
INTRAOPERATIVE RADIOGRAPHS CLINICAL HISTORY: Open reduction and internal fixation of the right hip. Fluoroscopy time: 108 seconds. FINDINGS: 5 spot fluoroscopic views of the right hip are correlated with radiographs dated 02/02/2022 . Intertrochanteric and intramedullary nails are placed transfixing an intertrochanteric fracture of the right proximal femur. Near anatomic alignment is restored. A single cortical lag screw transfixes the distal end of the intramedullary nail. The orthopedic hardware appears intact. IMPRESSION: Intraoperative images from open reduction and interval fixation of the right proximal fem ur. Electronically signed by: Martin Angulo M.D. 02/02/2022 8:41 PM
[2022-02-02] MEDS: LATANOPROST 0.005% OP SOLN 2.5 ML BTL OPB SCH (21:47)
[2022-02-02 22:42] LABS: Hematocrit (blood only) 27.7 % (40.1-51.0); Hemoglobin 9.4 g/dl (14.0-18.0)
--- NOTE | 2022-02-03 05:19 | Electrocardiogram Report ---
Test Reason : Blood Pressure : / mmHG Vent. Rate : 091 BPM Atrial Rate : 091 BPM P-R Int : 144 ms QRS Dur : 072 ms QT Int : 354 ms P-R-T Axes : 090 055 068 degrees QTc Int : 435 ms Poor data quality, interpretation may be adversely affected Normal sinus rhythm Anteroseptal infarct , age undetermined Abnormal ECG No previous ECGs available Confirmed by Trevor Dorman ([id number]) on 02/03/2022 5:18:48 AM Referred By: [facility] Confirmed By:Trevor Dorman
[2022-02-03 07:01] LABS: Basophils # (auto) 0.01 K/uL (0-0.2); Basophils % (auto) 0.1 %; Hematocrit (blood only) 24.9 % (40.1-51.0); Hemoglobin 8.6 g/dl (14.0-18.0); Immature Granulocytes # (auto) 0.05 K/uL (0.00-0.02); Immature Granulocytes % (auto) 0.5 %; Lymphocytes % (auto) 7.5 %; Mean Corpuscular Hemoglobin 32.2 pg (25.0-34.0); Mean Corpuscular Hgb Conc 34.5 g/dL (32.0-36.0); Mean Corpuscular Volume 93.3 fL (80.0-100.0); Mean Platelet Volume 9.2 fL (9.4-12.4); Monocytes # (auto) 1.07 K/uL (0.24-0.82); Monocytes % (auto) 11.4 %; Neutrophils # (auto) 7.53 K/uL (1.4-6.5); Neutrophils % (auto) 80.5 %; Platelet Count 205 K/uL (130-400); RDW Coefficient of Variation 14.3 % (11.5-14.5); RDW Standard Deviation 48.8 fL (36.4-46.3); Red Blood Count 2.67 M/uL (4.63-6.08); White Blood Count 9.36 K/ul (4.8-10.8)
[2022-02-03 07:27] LABS: Calcium 8.5 mg/dl (8.5-10.1); Creatinine Clr Calc Pharmacy 56.7 ml/min; Est GFR (African American) 77.9 ml/min; Est GFR (Non-African American) 67.2 ml/min
[2022-02-03] MEDS: oxyCODONE HCL IR 5 MG TAB (IMMEDIATE RELEASE) PO PRN ×2 (07:56→15:32)
[2022-02-03] MEDS: HALOPERIDOL LACTATE 5 MG/ML 1 ML VIAL IM PRN (08:07)
[2022-02-03] MEDS: UMECLIDINIUM/VILANTEROL 62.5/25MCG 7 PUFFS/INHALER INH SCH (09:26)
[2022-02-03] MEDS: amLODIPine BESYLATE 5 MG TAB PO SCH (09:27)
[2022-02-03] MEDS: FERROUS SULFATE 325 MG TAB PO SCH (09:27)
[2022-02-03] MEDS: QUEtiapine FUMARATE 50 MG TABCR PO SCH ×2 (09:27→22:40)
[2022-02-03] MEDS: PANTOprazole 40 MG TAB PO SCH (09:27)
[2022-02-03] MEDS: TAMSULOSIN HCL 0.4 MG CAP PO SCH (09:27)
--- NOTE | 2022-02-03 14:26 | Hospitalist Progress Note ---
Date of Service February 03, 2022 Assessment & Plan (1) Hip fracture, intertrochanteric: Plan: Patient is a 81-year-old male with past medical history of CVA, COPD, hypertension, dementia presented from retirement after a fall. He was found to have acute impacted right intertrochanteric fracture in outpatient pelvic x- ray. Patient is sent to the ED for evaluation. He was admitted to the telemetry floor; patient underwent right trochanteric nailing by orthopedic on 02/02. Mechanical fall Right intertrochanteric fracture status post nailing on 02/02 Dementia with behavioral problem Afebrile, normotensive and saturating well in room air Post op Hemoglobin8.6; Hip x-ray after surgery shows interval fixation of the right proximal femur. Plan; Continue pain control with Tylenol, oxycodone and Dilaudid. Start on DVT prophylaxis with Lovenox Remove [place] and bladder scan every 8 hours Swallow evaluation; appreciate recommendation. Continue PT/OT Continue on Seroquel 50 mg twice daily and Haldol as needed for agitation. Continue home medication including amlodipine, eyedrops, inhaler and tamsulosin. DVT Lovenox Full code Daughter called over the phone; unable to reach. Voice message left. Admission and Anticipated Discharge Date Admission Date: February 02, 2022 Subjective Patient seen and examined at bedside. He is agitated; not oriented to time and place. Review of Systems Review of Systems: All systems reviewed & are unremarkable except as noted in Subjective Physical Exam Physical Exam: GENERAL: Demented, uncomfortable, hard of hearing, no respiratory distress SKIN: Normal color, warm HEENT: [place] palpebral conjunctivae, no ptosis, dry buccal mucosa NECK : Supple, no tenderness CHEST : Decreased breath sounds, no tenderness HEART : RRR, no obvious murmurs ABDOMEN: Soft, nontender. EXTREMITIES : Right hip tenderness, minimal LE swelling, no other conspicuous deformities noted NEUROLOGIC : Demented, no facial asymmetry, gait and stance not assessed Results & Data Results & Data ([facility]) Vital Signs (Past 12 Hours) Vital Signs Temp Pulse Pulse Resp BP BP Pulse Ox 02/03/22 11:57 36.9 C 88 18 126/61 90 02/03/22 07:00 02/03/22 09:41 73 02/03/22 08:57 116/66 02/03/22 07:01 37.1 C 70 18 89/42 L 91 02/03/22 03:44 36.7 C 76 18 134/73 97 02/03/22 03:06 02/03/22 03:00 Pulse Ox O2 Del Method O2 Del Method O2 Flow Rate O2 Flow Rate 02/03/22 11:57 Room Air 02/03/22 07:00 93 Room Air 02/03/22 09:41 02/03/22 08:57 02/03/22 07:01 Nasal Cannula 02/03/22 03:44 Nasal Cannula 2 02/03/22 03:06 Nasal Cannula 2 02/03/22 03:00 Nasal Cannula 2 Laboratory Results Laboratory Results WBC 9.36 K/ul (4.8-10.8) 02/03/22 06:40 RBC 2.67 M/uL (4.63-6.08) L 02/03/22 06:40 Hgb 8.6 g/dl (14.0-18.0) L 02/03/22 06:40 Hct 24.9 % (40.1-51.0) L 02/03/22 06:40 MCV 93.3 fL (80.0-100.0) 02/03/22 06:40 MCH 32.2 pg (25.0-34.0) 02/03/22 06:40 MCHC 34.5 g/dL (32.0-36.0) 02/03/22 06:40 RDW Std Deviation 48.8 fL (36.4-46.3) H 02/03/22 06:40 RDW Coeff of Silvino 14.3 % (11.5-14.5) 02/03/22 06:40 Plt Count 205 K/uL (130-400) 02/03/22 06:40 MPV 9.2 fL (9.4-12.4) L 02/03/22 06:40 Immature Gran % (Auto) 0.5 % 02/03/22 06:40 Neut % (Auto) 80.5 % 02/03/22 06:40 Lymph % (Auto) 7.5 % 02/03/22 06:40 [place] % (Auto) 11.4 % 02/03/22 06:40 Eos % (Auto) 0.0 % 02/03/22 06:40 Baso % (Auto) 0.1 % 02/03/22 06:40 Neut # (Auto) 7.53 K/uL (1.4-6.5) H 02/03/22 06:40 Lymph # (Auto) 0.70 K/uL (1.2-3.4) L 02/03/22 06:40 [place] # (Auto) 1.07 K/uL (0.24-0.82) H 02/03/22 06:40 Eos # (Auto) 0.00 K/uL (0-0.50) 02/03/22 06:40 Baso # (Auto) 0.01 K/uL (0-0.2) 02/03/22 06:40 Immature Gran # (Auto) 0.05 K/uL (0.00-0.02) H 02/03/22 06:40 PT 10.9 Seconds (9.0-12.0) 02/01/22 23:35 INR 1.0 (0.9-1.1) 02/01/22 23:35 APTT 33.6 Seconds (21.0-31.0) H 02/01/22 23:35 PTT Ratio 1.2 02/01/22 23:35 Sodium 134 mmol/L (136-145) L 02/03/22 06:40 Potassium 5.0 mmol/L (3.5-5.1) 02/03/22 06:40 Chloride 103 mmol/L (98-107) 02/03/22 06:40 Carbon Dioxide 27 mmol/L (21-32) 02/03/22 06:40 Anion Gap 4 (3-11) 02/03/22 06:40 BUN 41 mg/dl (6-23) H 02/03/22 06:40 Creatinine 1.05 mg/dl (0.6-1.4) 02/03/22 06:40 Est Cr Clr Drug Dosing 56.7 ml/min 02/03/22 06:40 Est GFR ( Amer) 77.9 ml/min 02/03/22 06:40 Est GFR (Non-Af Amer) 67.2 ml/min 02/03/22 06:40 BUN/Creatinine Ratio 39.0 (10-20) H 02/03/22 06:40 Glucose 137 mg/dl (70-99(Fasting)) H 02/03/22 06:40 Estimat Average Glucose 108 mg/dl 02/01/22 23:35 Hemoglobin A1c 5.4 % (4.5-5.6) 02/01/22 23:35 Calcium 8.5 mg/dl (8.5-10.1) 02/03/22 06:40 Magnesium 2.0 mg/dl (1.7-2.4) 02/02/22 01:28 Total Bilirubin 0.9 mg/dl (0.2-1.0) 02/01/22 23:35 AST 12 U/L (13-39) L 02/01/22 23:35 ALT 10 U/L (7-52) 02/01/22 23:35 Alkaline Phosphatase 80 U/L (34-104) 02/01/22 23:35 Total Protein 5.8 gm/dl (6.0-8.3) L 02/01/22 23:35 Albumin 3.6 gm/dl (3.4-5.0) 02/01/22 23:35 Globulin 2.2 gm/dl (2.5-4.0) L 02/01/22 23:35 Albumin/Globulin Ratio 1.6 (0.9-2) 02/01/22 23:35 25-OH Vitamin D Total 44.2 ng/ml (30-100) 02/03/22 06:40 TSH 2.501 uIu/ml (0.300-4.500) 02/01/22 23:35 Urine Color Yellow 02/01/22 23:55 Urine Appearance Clear (Clear) 02/01/22 23:55 Urine pH 7.5 (4.5-7.5) 02/01/22 23:55 Ur Specific [place] 1.017 (1.000-1.030) 02/01/22 23:55 Urine Protein Negative (Negative) 02/01/22 23:55 Urine Glucose (UA) Negative (Negative) 02/01/22 23:55 Urine Ketones Negative (Negative) 02/01/22 23:55 Urine Blood Negative (Negative) 02/01/22 23:55 Urine Nitrite Negative (Negative) 02/01/22 23:55 Urine Bilirubin Negative (Negative) 02/01/22 23:55 Urine Urobilinogen Negative (Negative) 02/01/22 23:55 Ur Leukocyte Esterase Negative (Negative) 02/01/22 23:55 SARS-CoV-2, RNA, NAAT NEGATIVE (NEGATIVE) 02/01/22 23:58 Blood Type O Positive 02/02/22 05:31 Blood Type Recheck O Positive 02/02/22 11:14 Antibody Screen NEGATIVE 02/02/22 05:31 Crossmatch See Detail 02/02/22 05:31 Impressions Chest X-Ray 02/01/22 23:25 XR chest 1V portable HISTORY: 81 years-old Male hip fx acute chest trauma status post fall COMPARISON: None TECHNIQUE: Supine AP view of the chest FINDINGS: Cardiac silhouette is mildly enlarged. 2 cm right midlung nodular opacity. No pneumothorax, pleural effusion, airspace consolidation or overt pulmonary edema. Bones appear grossly intact. IMPRESSION: 1. Mild cardiac megaly without acute process. 2. 2 mm right midlung nodular opacity is likely related to summation density with overlying pulmonary vasculature. A pulmonary nodule is considered less likely. Correlate with prior imaging. ACT 112: Negative or not required by law. The above report was generated using voice recognition software. It may contain grammatical, syntax or spelling errors. Electronically signed by: Spenser Chavez M.D. 02/02/2022 8:01 AM Hip X-Ray 02/02/22 15:30 INTRAOPERATIVE RADIOGRAPHS CLINICAL HISTORY: Open reduction and internal fixation of the right hip. Fluoroscopy time: 108 seconds. FINDINGS: 5 spot fluoroscopic views of the right hip are correlated with radiographs dated 02/02/2022. Intertrochanteric and intramedullary nails are placed transfixing an intertrochanteric fracture of the right proximal femur. Near anatomic alignment is restored. A single cortical lag screw transfixes the distal end of the intramedullary nail. The orthopedic hardware appears intact. IMPRESSION: Intraoperative images from open reduction and interval fixation of the right proximal femur. Electronically signed by: Martin Angulo M.D. 02/02/2022 8:41 PM
--- NOTE | 2022-02-03 14:38 | Orthopedic Progress Note ---
Date of Service February 03, 2022 Assessment & Plan (1) Hip fracture, intertrochanteric: Plan: POD 1 s/p Right TFN PT/OT. TTWB if able to understand. DVT prophylaxis - Lovenox, SCD's Pain management as written. Admission and Anticipated Discharge Date Admission Date: February 02, 2022 Subjective POD 1 Pt lying in bed. Awake, alert. PT present getting ready to start their session with patient. Pt states he is "ok" when asked how he is feeling. More alert today. Physical Exam Physical Exam: Dressings C/D/I. Thigh with mild swelling. Calves are soft and appear NT. Pt not following commands to move his toes/feet. Results & Data ([facility]) Vital Signs (Past 12 Hours) Vital Signs Temp Pulse Pulse Resp BP BP Pulse Ox 02/03/22 11:57 36.9 C 88 18 126/61 90 02/03/22 07:00 02/03/22 09:41 73 02/03/22 08:57 116/66 02/03/22 07:01 37.1 C 70 18 89/42 L 91 02/03/22 03:44 36.7 C 76 18 134/73 97 02/03/22 03:06 02/03/22 03:00 Pulse Ox O2 Del Method O2 Del Method O2 Flow Rate O2 Flow Rate 02/03/22 11:57 Room Air 02/03/22 07:00 93 Room Air 02/03/22 09:41 02/03/22 08:57 02/03/22 07:01 Nasal Cannula 02/03/22 03:44 Nasal Cannula 2 02/03/22 03:06 Nasal Cannula 2 02/03/22 03:00 Nasal Cannula 2 Laboratory Results Laboratory Results WBC 9.36 K/ul (4.8-10.8) 02/03/22 06:40 RBC 2.67 M/uL (4.63-6.08) L 02/03/22 06:40 Hgb 8.6 g/dl (14.0-18.0) L 02/03/22 06:40 Hct 24.9 % (40.1-51.0) L 02/03/22 06:40 MCV 93.3 fL (80.0-100.0) 02/03/22 06:40 MCH 32.2 pg (25.0-34.0) 02/03/22 06:40 MCHC 34.5 g/dL (32.0-36.0) 02/03/22 06:40 RDW Std Deviation 48.8 fL (36.4-46.3) H 02/03/22 06:40 RDW Coeff of Silvino 14.3 % (11.5-14.5) 02/03/22 06:40 Plt Count 205 K/uL (130-400) 02/03/22 06:40 MPV 9.2 fL (9.4-12.4) L 02/03/22 06:40 Immature Gran % (Auto) 0.5 % 02/03/22 06:40 Neut % (Auto) 80.5 % 02/03/22 06:40 Lymph % (Auto) 7.5 % 02/03/22 06:40 [place] % (Auto) 11.4 % 02/03/22 06:40 Eos % (Auto) 0.0 % 02/03/22 06:40 Baso % (Auto) 0.1 % 02/03/22 06:40 Neut # (Auto) 7.53 K/uL (1.4-6.5) H 02/03/22 06:40 Lymph # (Auto) 0.70 K/uL (1.2-3.4) L 02/03/22 06:40 [place] # (Auto) 1.07 K/uL (0.24-0.82) H 02/03/22 06:40 Eos # (Auto) 0.00 K/uL (0-0.50) 02/03/22 06:40 Baso # (Auto) 0.01 K/uL (0-0.2) 02/03/22 06:40 Immature Gran # (Auto) 0.05 K/uL (0.00-0.02) H 02/03/22 06:40 PT 10.9 Seconds (9.0-12.0) 02/01/22 23:35 INR 1.0 (0.9-1.1) 02/01/22 23:35 APTT 33.6 Seconds (21.0-31.0) H 02/01/22 23:35 PTT Ratio 1.2 02/01/22 23:35 Sodium 134 mmol/L (136-145) L 02/03/22 06:40 Potassium 5.0 mmol/L (3.5-5.1) 02/03/22 06:40 Chloride 103 mmol/L (98-107) 02/03/22 06:40 Carbon Dioxide 27 mmol/L (21-32) 02/03/22 06:40 Anion Gap 4 (3-11) 02/03/22 06:40 BUN 41 mg/dl (6-23) H 02/03/22 06:40 Creatinine 1.05 mg/dl (0.6-1.4) 02/03/22 06:40 Est Cr Clr Drug Dosing 56.7 ml/min 02/03/22 06:40 Est GFR ( Amer) 77.9 ml/min 02/03/22 06:40 Est GFR (Non-Af Amer) 67.2 ml/min 02/03/22 06:40 BUN/Creatinine Ratio 39.0 (10-20) H 02/03/22 06:40 Glucose 137 mg/dl (70-99(Fasting)) H 02/03/22 06:40 Estimat Average Glucose 108 mg/dl 02/01/22 23:35 Hemoglobin A1c 5.4 % (4.5-5.6) 02/01/22 23:35 Calcium 8.5 mg/dl (8.5-10.1) 02/03/22 06:40 Magnesium 2.0 mg/dl (1.7-2.4) 02/02/22 01:28 Total Bilirubin 0.9 mg/dl (0.2-1.0) 02/01/22 23:35 AST 12 U/L (13-39) L 02/01/22 23:35 ALT 10 U/L (7-52) 02/01/22 23:35 Alkaline Phosphatase 80 U/L (34-104) 02/01/22 23:35 Total Protein 5.8 gm/dl (6.0-8.3) L 02/01/22 23:35 Albumin 3.6 gm/dl (3.4-5.0) 02/01/22 23:35 Globulin 2.2 gm/dl (2.5-4.0) L 02/01/22 23:35 Albumin/Globulin Ratio 1.6 (0.9-2) 02/01/22 23:35 25-OH Vitamin D Total 44.2 ng/ml (30-100) 02/03/22 06:40 TSH 2.501 uIu/ml (0.300-4.500) 02/01/22 23:35 Urine Color Yellow 02/01/22 23:55 Urine Appearance Clear (Clear) 02/01/22 23:55 Urine pH 7.5 (4.5-7.5) 02/01/22 23:55 Ur Specific [place] 1.017 (1.000-1.030) 02/01/22 23:55 Urine Protein Negative (Negative) 02/01/22 23:55 Urine Glucose (UA) Negative (Negative) 02/01/22 23:55 Urine Ketones Negative (Negative) 02/01/22 23:55 Urine Blood Negative (Negative) 02/01/22 23:55 Urine Nitrite Negative (Negative) 02/01/22 23:55 Urine Bilirubin Negative (Negative) 02/01/22 23:55 Urine Urobilinogen Negative (Negative) 02/01/22 23:55 Ur Leukocyte Esterase Negative (Negative) 02/01/22 23:55 SARS-CoV-2, RNA, NAAT NEGATIVE (NEGATIVE) 02/01/22 23:58 Blood Type O Positive 02/02/22 05:31 Blood Type Recheck O Positive 02/02/22 11:14 Antibody Screen NEGATIVE 02/02/22 05:31 Crossmatch See Detail 02/02/22 05:31 Impressions Hip X-Ray 02/02/22 15:30 INTRAOPERATIVE RADIOGRAPHS CLINICAL HISTORY: Open reduction and internal fixation of the right hip. Fluoroscopy time: 108 seconds. FINDINGS: 5 spot fluoroscopic views of the right hip are correlated with radiographs dated 02/02/2022. Intertrochanteric and intramedullary nails are placed transfixing an intertrochanteric fracture of the right proximal femur. Near anatomic alignment is restored. A single cortical lag screw transfixes the distal end of the intramedullary nail. The orthopedic hardware appears intact. IMPRESSION: Intraoperative images from open reduction and interval fixation of the right proximal femur. Electronically signed by: Martin Angulo M.D. 02/02/2022 8:41 PM
[2022-02-03] MEDS: ENOXAPARIN INJ 40 MG/0.4 ML SYR SQ SCH (15:33)
[2022-02-03] MEDS: LATANOPROST 0.005% OP SOLN 2.5 ML BTL OPB SCH (23:30)
[2022-02-04] MEDS ORDERED: HALOPERIDOL LACTATE 5 MG/ML 1 ML VIAL IM STA (04:29)
[2022-02-04 06:40] LABS: Basophils # (auto) 0.01 K/uL (0-0.2); Basophils % (auto) 0.1 %; Eosinophils # (auto) 0.02 K/uL (0-0.50); Eosinophils % (auto) 0.3 %; Hematocrit (blood only) 22.2 % (40.1-51.0); Hemoglobin 7.4 g/dl (14.0-18.0); Immature Granulocytes # (auto) 0.02 K/uL (0.00-0.02); Immature Granulocytes % (auto) 0.3 %; Lymphocytes # (auto) 1.74 K/uL (1.2-3.4); Lymphocytes % (auto) 23.2 %; Mean Corpuscular Hemoglobin 31.4 pg (25.0-34.0); Mean Corpuscular Hgb Conc 33.3 g/dL (32.0-36.0); Mean Corpuscular Volume 94.1 fL (80.0-100.0); Mean Platelet Volume 9.2 fL (9.4-12.4); Monocytes # (auto) 1.06 K/uL (0.24-0.82); Monocytes % (auto) 14.2 %; Neutrophils # (auto) 4.64 K/uL (1.4-6.5); Neutrophils % (auto) 61.9 %; Platelet Count 175 K/uL (130-400); RDW Coefficient of Variation 14.3 % (11.5-14.5); RDW Standard Deviation 48.6 fL (36.4-46.3); Red Blood Count 2.36 M/uL (4.63-6.08); White Blood Count 7.49 K/ul (4.8-10.8)
[2022-02-04 07:00] LABS: Albumin Globulin Ratio 1.3 (0.9-2); Albumin Level 2.8 gm/dl (3.4-5.0); BUN Creatinine Ratio 34.9 (10-20); Bilirubin,Total 0.9 mg/dl (0.2-1.0); Calcium 8.4 mg/dl (8.5-10.1); Creatinine Clr Calc Pharmacy 45.8 ml/min; Est GFR (African American) 60.7 ml/min; Est GFR (Non-African American) 52.4 ml/min; Globulin 2.1 gm/dl (2.5-4.0); Potassium 5.1 mmol/L (3.5-5.1); Total Protein 4.9 gm/dl (6.0-8.3)
[2022-02-04 07:23] LABS: Poikilocytosis Present; Toxic Granulation 1+
[2022-02-04] MEDS: oxyCODONE HCL IR 5 MG TAB (IMMEDIATE RELEASE) PO PRN ×2 (08:52→19:59)
[2022-02-04] MEDS: amLODIPine BESYLATE 5 MG TAB PO SCH (08:54)
[2022-02-04] MEDS: TAMSULOSIN HCL 0.4 MG CAP PO SCH (08:56)
[2022-02-04] MEDS: PANTOprazole 40 MG TAB PO SCH (08:56)
[2022-02-04] MEDS: UMECLIDINIUM/VILANTEROL 62.5/25MCG 7 PUFFS/INHALER INH SCH (08:56)
[2022-02-04] MEDS: FERROUS SULFATE 325 MG TAB PO SCH (08:56)
[2022-02-04] MEDS: QUEtiapine FUMARATE 50 MG TABCR PO SCH ×3 (08:56→22:04)
--- NOTE | 2022-02-04 10:20 | Hospitalist Progress Note ---
Date of Service February 04, 2022 Assessment & Plan (1) Hip fracture, intertrochanteric: Plan: Patient is a 81-year-old male with past medical history of CVA, COPD, hypertension, dementia presented from custodial after a fall. He was found to have acute impacted right intertrochanteric fracture in outpatient pelvic x- ray. Patient is sent to the ED for evaluation. He was admitted to the telemetry floor; patient underwent right trochanteric nailing by orthopedic on 02/02. Mechanical fall Right intertrochanteric fracture status post nailing on 02/02 Dementia with behavioral problem Afebrile, normotensive and saturating well in room air Hemoglobin is 7.4 today; slightly downtrending. Hip x-ray after surgery shows interval fixation of the right proximal femur. Plan; Continue pain control with Tylenol, oxycodone and Dilaudid. Continue on DVT prophylaxis with Lovenox Swallow evaluation; appreciate recommendation. Continue PT/OT Continue on Seroquel 50 mg twice daily and Haldol as needed for agitation. Add bowel regimen Continue home medication including amlodipine, eyedrops, inhaler and tamsulosin. DVT Lovenox Full code Dispopatient is from outside; continue PT OT for now. Discharge when bed is available. Discussed plan of care with the daughter over the phone; answered question. Admission and Anticipated Discharge Date Admission Date: February 02, 2022 Subjective Patient seen and examined at bedside. He is awake; hard of hearing. He is less agitated compared to yesterday. Review of Systems Review of Systems: All systems reviewed & are unremarkable except as noted in Subjective Physical Exam Physical Exam: GENERAL: Demented, uncomfortable, hard of hearing, no respiratory distress SKIN: Normal color, warm HEENT: [place] palpebral conjunctivae, no ptosis, dry buccal mucosa NECK : Supple, no tenderness CHEST : Decreased breath sounds, no tenderness HEART : RRR, no obvious murmurs ABDOMEN: Soft, nontender. EXTREMITIES : Bandage over right hip; clean dry and intact. NEUROLOGIC : Grossly moves all extremities. Results & Data Results & Data ([facility]) Vital Signs (Past 12 Hours) Vital Signs Temp Pulse Resp BP BP Pulse Ox O2 Del Method 02/04/22 07:24 36.3 C L 63 18 120/54 L 96 Nasal Cannula 02/04/22 03:57 Nasal Cannula 02/04/22 03:42 87 20 108/48 L 94 Nasal Cannula 02/03/22 22:52 36.8 C 90 18 113/46 L 91 Nasal Cannula O2 Flow Rate 02/04/22 07:24 2 02/04/22 03:57 2 02/04/22 03:42 2 02/03/22 22:52 1 Laboratory Results Laboratory Results WBC 7.49 K/ul (4.8-10.8) 02/04/22 06:14 RBC 2.36 M/uL (4.63-6.08) L 02/04/22 06:14 Hgb 7.4 g/dl (14.0-18.0) L 02/04/22 06:14 Hct 22.2 % (40.1-51.0) L 02/04/22 06:14 MCV 94.1 fL (80.0-100.0) 02/04/22 06:14 MCH 31.4 pg (25.0-34.0) 02/04/22 06:14 MCHC 33.3 g/dL (32.0-36.0) 02/04/22 06:14 RDW Std Deviation 48.6 fL (36.4-46.3) H 02/04/22 06:14 RDW Coeff of Silvino 14.3 % (11.5-14.5) 02/04/22 06:14 Plt Count 175 K/uL (130-400) 02/04/22 06:14 MPV 9.2 fL (9.4-12.4) L 02/04/22 06:14 Immature Gran % (Auto) 0.3 % 02/04/22 06:14 Neut % (Auto) 61.9 % 02/04/22 06:14 Lymph % (Auto) 23.2 % 02/04/22 06:14 [place] % (Auto) 14.2 % 02/04/22 06:14 Eos % (Auto) 0.3 % 02/04/22 06:14 Baso % (Auto) 0.1 % 02/04/22 06:14 Neut # (Auto) 4.64 K/uL (1.4-6.5) 02/04/22 06:14 Lymph # (Auto) 1.74 K/uL (1.2-3.4) 02/04/22 06:14 [place] # (Auto) 1.06 K/uL (0.24-0.82) H 02/04/22 06:14 Eos # (Auto) 0.02 K/uL (0-0.50) 02/04/22 06:14 Baso # (Auto) 0.01 K/uL (0-0.2) 02/04/22 06:14 Immature Gran # (Auto) 0.02 K/uL (0.00-0.02) 02/04/22 06:14 Toxic Granulation 1+ 02/04/22 06:14 Poikilocytosis Present 02/04/22 06:14 PT 10.9 Seconds (9.0-12.0) 02/01/22 23:35 INR 1.0 (0.9-1.1) 02/01/22 23:35 APTT 33.6 Seconds (21.0-31.0) H 02/01/22 23:35 PTT Ratio 1.2 02/01/22 23:35 Sodium 133 mmol/L (136-145) L 02/04/22 06:14 Potassium 5.1 mmol/L (3.5-5.1) 02/04/22 06:14 Chloride 100 mmol/L (98-107) 02/04/22 06:14 Carbon Dioxide 31 mmol/L (21-32) 02/04/22 06:14 Anion Gap 2 (3-11) L 02/04/22 06:14 BUN 45 mg/dl (6-23) H 02/04/22 06:14 Creatinine 1.29 mg/dl (0.6-1.4) 02/04/22 06:14 Est Cr Clr Drug Dosing 45.8 ml/min 02/04/22 06:14 Est GFR ( Amer) 60.7 ml/min 02/04/22 06:14 Est GFR (Non-Af Amer) 52.4 ml/min 02/04/22 06:14 BUN/Creatinine Ratio 34.9 (10-20) H 02/04/22 06:14 Glucose 105 mg/dl (70-99(Fasting)) H 02/04/22 06:14 Estimat Average Glucose 108 mg/dl 02/01/22 23:35 Hemoglobin A1c 5.4 % (4.5-5.6) 02/01/22 23:35 Calcium 8.4 mg/dl (8.5-10.1) L 02/04/22 06:14 Magnesium 2.0 mg/dl (1.7-2.4) 02/02/22 01:28 Total Bilirubin 0.9 mg/dl (0.2-1.0) 02/04/22 06:14 AST 30 U/L (13-39) 02/04/22 06:14 ALT 14 U/L (7-52) 02/04/22 06:14 Alkaline Phosphatase 54 U/L (34-104) 02/04/22 06:14 Total Protein 4.9 gm/dl (6.0-8.3) L 02/04/22 06:14 Albumin 2.8 gm/dl (3.4-5.0) L 02/04/22 06:14 Globulin 2.1 gm/dl (2.5-4.0) L 02/04/22 06:14 Albumin/Globulin Ratio 1.3 (0.9-2) 02/04/22 06:14 25-OH Vitamin D Total 44.2 ng/ml (30-100) 02/03/22 06:40 TSH 2.501 uIu/ml (0.300-4.500) 02/01/22 23:35 Urine Color Yellow 02/01/22 23:55 Urine Appearance Clear (Clear) 02/01/22 23:55 Urine pH 7.5 (4.5-7.5) 02/01/22 23:55 Ur Specific [place] 1.017 (1.000-1.030) 02/01/22 23:55 Urine Protein Negative (Negative) 02/01/22 23:55 Urine Glucose (UA) Negative (Negative) 02/01/22 23:55 Urine Ketones Negative (Negative) 02/01/22 23:55 Urine Blood Negative (Negative) 02/01/22 23:55 Urine Nitrite Negative (Negative) 02/01/22 23:55 Urine Bilirubin Negative (Negative) 02/01/22 23:55 Urine Urobilinogen Negative (Negative) 02/01/22 23:55 Ur Leukocyte Esterase Negative (Negative) 02/01/22 23:55 SARS-CoV-2, RNA, NAAT NEGATIVE (NEGATIVE) 02/01/22 23:58 Blood Type O Positive 02/02/22 05:31 Blood Type Recheck O Positive 02/02/22 11:14 Antibody Screen NEGATIVE 02/02/22 05:31 Crossmatch See Detail 02/02/22 05:31 Impressions Chest X-Ray 02/01/22 23:25 XR chest 1V portable HISTORY: 81 years-old Male hip fx acute chest trauma status post fall COMPARISON: None TECHNIQUE: Supine AP view of the chest FINDINGS: Cardiac silhouette is mildly enlarged. 2 cm right midlung nodular opacity. No pneumothorax, pleural effusion, airspace consolidation or overt pulmonary edema. Bones appear grossly intact. IMPRESSION: 1. Mild cardiac megaly without acute process. 2. 2 mm right midlung nodular opacity is likely related to summation density with overlying pulmonary vasculature. A pulmonary nodule is considered less likely. Correlate with prior imaging. ACT 112: Negative or not required by law. The above report was generated using voice recognition software. It may contain grammatical, syntax or spelling errors. Electronically signed by: Spenser Chavez M.D. 02/02/2022 8:01 AM Hip X-Ray 02/02/22 15:30 INTRAOPERATIVE RADIOGRAPHS CLINICAL HISTORY: Open reduction and internal fixation of the right hip. Fluoroscopy time: 108 seconds. FINDINGS: 5 spot fluoroscopic views of the right hip are correlated with radiographs dated 02/02/2022. Intertrochanteric and intramedullary nails are placed transfixing an intertrochanteric fracture of the right proximal femur. Near anatomic alignment is restored. A single cortical lag screw transfixes the distal end of the intramedullary nail. The orthopedic hardware appears intact. IMPRESSION: Intraoperative images from open reduction and interval fixation of the right proximal femur. Electronically signed by: Martin Angulo M.D. 02/02/2022 8:41 PM
--- NOTE | 2022-02-04 10:59 | Orthopedic Progress Note ---
Date of Service February 04, 2022 Assessment & Plan (1) Hip fracture, intertrochanteric: Plan: POD 2 s/p Right TFN PT/OT. TTWB if able to understand. DVT prophylaxis - Lovenox, SCD's Pain management as written. Orthopedics will sign off at this time. Instructions placed in the dc emr section. Please call with any questions. Admission and Anticipated Discharge Date Admission Date: February 02, 2022 Subjective POD 2 Pt sitting up in bed. Needs one on one attendance due to trying to get OOB etc. Pt is currently awake, alert. Pleasant. Very [place]. Says he feels ok today. Physical Exam Physical Exam: Dressings C/D/I. Dressings removed. All wounds intact/benign. No overt drainage. No erythema. Mild swelling consistent with surgery. Calves, soft,NT. Toes mobile. Good DF/PF. Results & Data ([facility]) Vital Signs (Past 12 Hours) Vital Signs Temp Pulse Pulse Resp BP Pulse Ox O2 Del Method 02/04/22 08:00 70 02/04/22 07:24 36.3 C L 63 18 120/54 L 96 Nasal Cannula 02/04/22 03:57 Nasal Cannula 02/04/22 03:42 87 20 108/48 L 94 Nasal Cannula O2 Flow Rate 02/04/22 08:00 02/04/22 07:24 2 02/04/22 03:57 2 02/04/22 03:42 2
[2022-02-04] MEDS: POLYETHYLENE (MIRALAX) 17 GM PACK PO SCH (11:31)
[2022-02-04] MEDS: ENOXAPARIN INJ 40 MG/0.4 ML SYR SQ SCH (15:48)
[2022-02-04] MEDS: LATANOPROST 0.005% OP SOLN 2.5 ML BTL OPB SCH (19:59)
[2022-02-04] MEDS: HALOPERIDOL LACTATE 5 MG/ML 1 ML VIAL IM PRN (23:20)
[2022-02-05] MEDS ORDERED: HALOPERIDOL LACTATE 5 MG/ML 1 ML VIAL IM STA (00:24)
[2022-02-05] MEDS ORDERED: LORazepam 0.25 MG in SYRINGE 0 ML IV STA (01:43)
[2022-02-05] MEDS: HYDROmorphone INJ 0.5 MG/0.5 ML SYR IV PRN (02:18)
[2022-02-05] MEDS: UMECLIDINIUM/VILANTEROL 62.5/25MCG 7 PUFFS/INHALER INH SCH (07:37)
[2022-02-05] MEDS: POLYETHYLENE (MIRALAX) 17 GM PACK PO SCH (07:38)
[2022-02-05] MEDS: QUEtiapine FUMARATE 50 MG TABCR PO SCH ×2 (07:38→21:02)
[2022-02-05] MEDS: amLODIPine BESYLATE 5 MG TAB PO SCH (07:38)
[2022-02-05] MEDS: PANTOprazole 40 MG TAB PO SCH (07:39)
[2022-02-05] MEDS: TAMSULOSIN HCL 0.4 MG CAP PO SCH (07:39)
[2022-02-05] MEDS: FERROUS SULFATE 325 MG TAB PO SCH (07:39)
[2022-02-05 07:59] LABS: Basophils # (auto) 0.02 K/uL (0-0.2); Basophils % (auto) 0.3 %; Eosinophils # (auto) 0.01 K/uL (0-0.50); Eosinophils % (auto) 0.1 %; Hematocrit (blood only) 21.4 % (40.1-51.0); Hemoglobin 7.3 g/dl (14.0-18.0); Immature Granulocytes # (auto) 0.04 K/uL (0.00-0.02); Immature Granulocytes % (auto) 0.5 %; Lymphocytes # (auto) 1.29 K/uL (1.2-3.4); Mean Corpuscular Hemoglobin 31.7 pg (25.0-34.0); Mean Corpuscular Hgb Conc 34.1 g/dL (32.0-36.0); Mean Platelet Volume 9.6 fL (9.4-12.4); Monocytes # (auto) 1.01 K/uL (0.24-0.82); Monocytes % (auto) 13.3 %; Neutrophils % (auto) 68.8 %; Platelet Count 183 K/uL (130-400); RDW Coefficient of Variation 13.7 % (11.5-14.5); RDW Standard Deviation 46.9 fL (36.4-46.3); White Blood Count 7.57 K/ul (4.8-10.8)
[2022-02-05 08:20] LABS: Creatinine Clr Calc Pharmacy 45.1 ml/min; Est GFR (African American) 61.3 ml/min; Est GFR (Non-African American) 52.9 ml/min
[2022-02-05 08:23] LABS: Poikilocytosis Present
[2022-02-05] MEDS: ACETAMINOPHEN 325 MG TAB PO SCH ×3 (09:48→21:01)
[2022-02-05] MEDS: MAGNESIUM HYDROXIDE SUSP 30 ML UDC PO SCH (09:49)
--- NOTE | 2022-02-05 10:03 | Hospitalist Progress Note ---
Date of Service February 05, 2022 Assessment & Plan (1) Hip fracture, intertrochanteric: Plan: Patient is a 81-year-old male with past medical history of CVA, COPD, hypertension, dementia presented [facility]. He was found to have acute impacted right intertrochanteric fracture in outpatient pelvic x- ray. Patient is sent to the ED for evaluation. He was admitted to the telemetry floor; patient underwent right trochanteric nailing by orthopedic on 02/02. Mechanical fall Right intertrochanteric fracture status post nailing on 02/02 Dementia with behavioral problem Afebrile, normotensive and saturating well in room air Hemoglobin is 7.4 today; stable after initial downtrend. Hip x-ray after surgery shows interval fixation of the right proximal femur. Plan; Tylenol scheduled for pain control. Oxycodone as needed. Continue on DVT prophylaxis with Lovenox Continue PT/OT Continue on Seroquel 50 mg twice daily and Haldol as needed for agitation. Add bowel regimen Urinary retention status post Villarreal placement on 02/04 -Continue Villarreal for 7 to 10 days for bladder rest. Trial of void after that. Continue home medication including amlodipine, eyedrops, inhaler and tamsulosin. DVT Lovenox Full code DispoPT OT ordered;Patient is from [facility]; SNF auth process started. Admission and Anticipated Discharge Date Admission Date: February 02, 2022 Subjective Patient agitated overnight; trying to pull off his bandage over the operation site and also the Villarreal. Mittens were placed for agitation. Review of Systems Review of Systems: All systems reviewed & are unremarkable except as noted in Subjective Physical Exam Physical Exam: GENERAL: Awake; hard of hearing. Not answering any questions. SKIN: Normal color, warm HEENT: [place] palpebral conjunctivae, no ptosis, dry buccal mucosa NECK : Supple, no tenderness CHEST : Decreased breath sounds, no tenderness HEART : RRR, no obvious murmurs ABDOMEN: Soft, nontender. EXTREMITIES : Bandage over right hip; clean dry and intact. NEUROLOGIC : Grossly moves all extremities. Results & Data Results & Data ([facility]) Vital Signs (Past 12 Hours) Vital Signs Temp Pulse Pulse Resp BP Pulse Ox O2 Del Method 02/05/22 07:30 81 02/05/22 07:15 37.1 C 91 H 121/65 99 Nasal Cannula 02/04/22 22:20 88 02/04/22 22:59 37.7 C H 87 19 124/56 L 97 Nasal Cannula O2 Flow Rate 02/05/22 07:30 02/05/22 07:15 2 02/04/22 22:20 02/04/22 22:59 2 Laboratory Results Laboratory Results WBC 7.57 K/ul (4.8-10.8) 02/05/22 06:57 RBC 2.30 M/uL (4.63-6.08) L 02/05/22 06:57 Hgb 7.3 g/dl (14.0-18.0) L 02/05/22 06:57 Hct 21.4 % (40.1-51.0) L 02/05/22 06:57 MCV 93.0 fL (80.0-100.0) 02/05/22 06:57 MCH 31.7 pg (25.0-34.0) 02/05/22 06:57 MCHC 34.1 g/dL (32.0-36.0) 02/05/22 06:57 RDW Std Deviation 46.9 fL (36.4-46.3) H 02/05/22 06:57 RDW Coeff of Silvino 13.7 % (11.5-14.5) 02/05/22 06:57 Plt Count 183 K/uL (130-400) 02/05/22 06:57 MPV 9.6 fL (9.4-12.4) 02/05/22 06:57 Immature Gran % (Auto) 0.5 % 02/05/22 06:57 Neut % (Auto) 68.8 % 02/05/22 06:57 Lymph % (Auto) 17.0 % 02/05/22 06:57 [place] % (Auto) 13.3 % 02/05/22 06:57 Eos % (Auto) 0.1 % 02/05/22 06:57 Baso % (Auto) 0.3 % 02/05/22 06:57 Neut # (Auto) 5.20 K/uL (1.4-6.5) 02/05/22 06:57 Lymph # (Auto) 1.29 K/uL (1.2-3.4) 02/05/22 06:57 [place] # (Auto) 1.01 K/uL (0.24-0.82) H 02/05/22 06:57 Eos # (Auto) 0.01 K/uL (0-0.50) 02/05/22 06:57 Baso # (Auto) 0.02 K/uL (0-0.2) 02/05/22 06:57 Immature Gran # (Auto) 0.04 K/uL (0.00-0.02) H 02/05/22 06:57 Toxic Granulation 1+ 02/04/22 06:14 Poikilocytosis Present 02/05/22 06:57 PT 10.9 Seconds (9.0-12.0) 02/01/22 23:35 INR 1.0 (0.9-1.1) 02/01/22 23:35 APTT 33.6 Seconds (21.0-31.0) H 02/01/22 23:35 PTT Ratio 1.2 02/01/22 23:35 Sodium 134 mmol/L (136-145) L 02/05/22 06:57 Potassium 5.0 mmol/L (3.5-5.1) 02/05/22 06:57 Chloride 101 mmol/L (98-107) 02/05/22 06:57 Carbon Dioxide 31 mmol/L (21-32) 02/05/22 06:57 Anion Gap 2 (3-11) L 02/05/22 06:57 BUN 41 mg/dl (6-23) H 02/05/22 06:57 Creatinine 1.28 mg/dl (0.6-1.4) 02/05/22 06:57 Est Cr Clr Drug Dosing 45.1 ml/min 02/05/22 06:57 Est GFR ( Amer) 61.3 ml/min 02/05/22 06:57 Est GFR (Non-Af Amer) 52.9 ml/min 02/05/22 06:57 BUN/Creatinine Ratio 32.0 (10-20) H 02/05/22 06:57 Glucose 108 mg/dl (70-99(Fasting)) H 02/05/22 06:57 Estimat Average Glucose 108 mg/dl 02/01/22 23:35 Hemoglobin A1c 5.4 % (4.5-5.6) 02/01/22 23:35 Calcium 8.0 mg/dl (8.5-10.1) L 02/05/22 06:57 Magnesium 2.0 mg/dl (1.7-2.4) 02/02/22 01:28 Total Bilirubin 0.9 mg/dl (0.2-1.0) 02/04/22 06:14 AST 30 U/L (13-39) 02/04/22 06:14 ALT 14 U/L (7-52) 02/04/22 06:14 Alkaline Phosphatase 54 U/L (34-104) 02/04/22 06:14 Total Protein 4.9 gm/dl (6.0-8.3) L 02/04/22 06:14 Albumin 2.8 gm/dl (3.4-5.0) L 02/04/22 06:14 Globulin 2.1 gm/dl (2.5-4.0) L 02/04/22 06:14 Albumin/Globulin Ratio 1.3 (0.9-2) 02/04/22 06:14 25-OH Vitamin D Total 44.2 ng/ml (30-100) 02/03/22 06:40 TSH 2.501 uIu/ml (0.300-4.500) 02/01/22 23:35 Urine Color Yellow 02/01/22 23:55 Urine Appearance Clear (Clear) 02/01/22 23:55 Urine pH 7.5 (4.5-7.5) 02/01/22 23:55 Ur Specific [place] 1.017 (1.000-1.030) 02/01/22 23:55 Urine Protein Negative (Negative) 02/01/22 23:55 Urine Glucose (UA) Negative (Negative) 02/01/22 23:55 Urine Ketones Negative (Negative) 02/01/22 23:55 Urine Blood Negative (Negative) 02/01/22 23:55 Urine Nitrite Negative (Negative) 02/01/22 23:55 Urine Bilirubin Negative (Negative) 02/01/22 23:55 Urine Urobilinogen Negative (Negative) 02/01/22 23:55 Ur Leukocyte Esterase Negative (Negative) 02/01/22 23:55 SARS-CoV-2, RNA, NAAT NEGATIVE (NEGATIVE) 02/01/22 23:58 Blood Type O Positive 02/02/22 05:31 Blood Type Recheck O Positive 02/02/22 11:14 Antibody Screen NEGATIVE 02/02/22 05:31 Crossmatch See Detail 02/02/22 05:31 Impressions Chest X-Ray 02/01/22 23:25 XR chest 1V portable HISTORY: 81 years-old Male hip fx acute chest trauma status post fall COMPARISON: None TECHNIQUE: Supine AP view of the chest FINDINGS: Cardiac silhouette is mildly enlarged. 2 cm right midlung nodular opacity. No pneumothorax, pleural effusion, airspace consolidation or overt pulmonary edema. Bones appear grossly intact. IMPRESSION: 1. Mild cardiac megaly without acute process. 2. 2 mm right midlung nodular opacity is likely related to summation density with overlying pulmonary vasculature. A pulmonary nodule is considered less likely. Correlate with prior imaging. ACT 112: Negative or not required by law. The above report was generated using voice recognition software. It may contain grammatical, syntax or spelling errors. Electronically signed by: Spenser Chavez M.D. 02/02/2022 8:01 AM Hip X-Ray 02/02/22 15:30 INTRAOPERATIVE RADIOGRAPHS CLINICAL HISTORY: Open reduction and internal fixation of the right hip. Fluoroscopy time: 108 seconds. FINDINGS: 5 spot fluoroscopic views of the right hip are correlated with radiographs dated 02/02/2022. Intertrochanteric and intramedullary nails are placed transfixing an intertrochanteric fracture of the right proximal femur. Near anatomic alignment is restored. A single cortical lag screw transfixes the distal end of the intramedullary nail. The orthopedic hardware appears intact. IMPRESSION: Intraoperative images from open reduction and interval fixation of the right proximal femur. Electronically signed by: Martin Angulo M.D. 02/02/2022 8:41 PM
[2022-02-05] MEDS: oxyCODONE HCL IR 5 MG TAB (IMMEDIATE RELEASE) PO PRN ×2 (13:42→21:01)
[2022-02-05] MEDS: ENOXAPARIN INJ 40 MG/0.4 ML SYR SQ SCH (15:20)
[2022-02-05] MEDS: LATANOPROST 0.005% OP SOLN 2.5 ML BTL OPB SCH (21:02)
[2022-02-06] MEDS: ACETAMINOPHEN 325 MG TAB PO SCH ×4 (02:49→20:20)
[2022-02-06] MEDS: MAGNESIUM HYDROXIDE SUSP 30 ML UDC PO SCH (07:50)
[2022-02-06] MEDS: UMECLIDINIUM/VILANTEROL 62.5/25MCG 7 PUFFS/INHALER INH SCH (07:50)
[2022-02-06] MEDS: oxyCODONE HCL IR 5 MG TAB (IMMEDIATE RELEASE) PO PRN ×2 (07:51→14:47)
[2022-02-06] MEDS: amLODIPine BESYLATE 5 MG TAB PO SCH (07:52)
[2022-02-06] MEDS: PANTOprazole 40 MG TAB PO SCH (07:52)
[2022-02-06] MEDS: POLYETHYLENE (MIRALAX) 17 GM PACK PO SCH (07:52)
[2022-02-06] MEDS: FERROUS SULFATE 325 MG TAB PO SCH (07:52)
[2022-02-06] MEDS: TAMSULOSIN HCL 0.4 MG CAP PO SCH (07:53)
[2022-02-06] MEDS: QUEtiapine FUMARATE 50 MG TABCR PO SCH ×2 (07:53→20:16)
[2022-02-06] MEDS: HYDROmorphone INJ 0.5 MG/0.5 ML SYR IV PRN (11:02)
--- NOTE | 2022-02-06 13:52 | Hospitalist Progress Note ---
Date of Service February 06, 2022 Assessment & Plan (1) Hip fracture, intertrochanteric: Plan: Patient is a 81-year-old male with past medical history of CVA, COPD, hypertension, dementia presented from [facility] after a [facility]. He was found to have acute impacted right intertrochanteric fracture in outpatient pelvic x- ray. Patient is sent to the ED for evaluation. He was admitted to the telemetry floor; patient underwent right trochanteric nailing by orthopedic on 02/02. Mechanical fall Right intertrochanteric fracture status post nailing on 02/02 Dementia with behavioral problem Afebrile, normotensive and saturating well in room air Hemoglobin is 7.4 today; stable after initial downtrend. Fecal occult negative. Hip x-ray after surgery shows interval fixation of the right proximal femur. Plan; Tylenol scheduled for pain control. Oxycodone as needed. Continue on DVT prophylaxis with Lovenox Continue PT/OT Continue on Seroquel 50 mg twice daily and Haldol as needed for agitation. Add bowel regimen Urinary retention status post Villarreal placement on 02/04 -We will do trial of void today. Bladder scan every 8 hours. If failed; will place the Villarreal again and do trial of void in a subacute rehab. Continue home medication including amlodipine, eyedrops, inhaler and tamsulosin. DVT Lovenox Full code DispoPT OT ordered;Patient is from [facility]; possible DC tomorrow AM. Daughter Sarah updated over the phone. Admission and Anticipated Discharge Date Admission Date: February 02, 2022 Subjective Patient seen and examined at bedside. Comfortable and eating breakfast. Tends to get agitated intermittently. Review of Systems Review of Systems: All systems reviewed & are unremarkable except as noted in Subjective Physical Exam Physical Exam: GENERAL: Awake; hard of hearing. Not answering any questions. SKIN: Normal color, warm HEENT: [place] palpebral conjunctivae, no ptosis, dry buccal mucosa NECK : Supple, no tenderness CHEST : Decreased breath sounds, no tenderness HEART : RRR, no obvious murmurs ABDOMEN: Soft, nontender. EXTREMITIES : Bandage over right hip; clean dry and intact. NEUROLOGIC : Grossly moves all extremities. Results & Data Results & Data ([facility]) Vital Signs (Past 12 Hours) Vital Signs Temp Pulse Pulse Resp BP Pulse Ox Pulse Ox 02/06/22 11:04 36.9 C 91 H 19 122/54 L 90 02/06/22 08:00 02/06/22 07:05 36.8 C 83 19 110/64 91 02/06/22 07:04 85 02/06/22 03:00 94 02/06/22 03:00 36.6 C 93 H 18 121/71 94 O2 Del Method O2 Del Method O2 Flow Rate O2 Flow Rate 02/06/22 11:04 Room Air 02/06/22 08:00 Room Air 02/06/22 07:05 Nasal Cannula 2 02/06/22 07:04 02/06/22 03:00 Nasal Cannula 2 02/06/22 03:00 Nasal Cannula 2 Laboratory Results Laboratory Results WBC 7.57 K/ul (4.8-10.8) 02/05/22 06:57 RBC 2.30 M/uL (4.63-6.08) L 02/05/22 06:57 Hgb 7.3 g/dl (14.0-18.0) L 02/05/22 06:57 Hct 21.4 % (40.1-51.0) L 02/05/22 06:57 MCV 93.0 fL (80.0-100.0) 02/05/22 06:57 MCH 31.7 pg (25.0-34.0) 02/05/22 06:57 MCHC 34.1 g/dL (32.0-36.0) 02/05/22 06:57 RDW Std Deviation 46.9 fL (36.4-46.3) H 02/05/22 06:57 RDW Coeff of Silvino 13.7 % (11.5-14.5) 02/05/22 06:57 Plt Count 183 K/uL (130-400) 02/05/22 06:57 MPV 9.6 fL (9.4-12.4) 02/05/22 06:57 Immature Gran % (Auto) 0.5 % 02/05/22 06:57 Neut % (Auto) 68.8 % 02/05/22 06:57 Lymph % (Auto) 17.0 % 02/05/22 06:57 [place] % (Auto) 13.3 % 02/05/22 06:57 Eos % (Auto) 0.1 % 02/05/22 06:57 Baso % (Auto) 0.3 % 02/05/22 06:57 Neut # (Auto) 5.20 K/uL (1.4-6.5) 02/05/22 06:57 Lymph # (Auto) 1.29 K/uL (1.2-3.4) 02/05/22 06:57 [place] # (Auto) 1.01 K/uL (0.24-0.82) H 02/05/22 06:57 Eos # (Auto) 0.01 K/uL (0-0.50) 02/05/22 06:57 Baso # (Auto) 0.02 K/uL (0-0.2) 02/05/22 06:57 Immature Gran # (Auto) 0.04 K/uL (0.00-0.02) H 02/05/22 06:57 Toxic Granulation 1+ 02/04/22 06:14 Poikilocytosis Present 02/05/22 06:57 PT 10.9 Seconds (9.0-12.0) 02/01/22 23:35 INR 1.0 (0.9-1.1) 02/01/22 23:35 APTT 33.6 Seconds (21.0-31.0) H 02/01/22 23:35 PTT Ratio 1.2 02/01/22 23:35 Sodium 134 mmol/L (136-145) L 02/05/22 06:57 Potassium 5.0 mmol/L (3.5-5.1) 02/05/22 06:57 Chloride 101 mmol/L (98-107) 02/05/22 06:57 Carbon Dioxide 31 mmol/L (21-32) 02/05/22 06:57 Anion Gap 2 (3-11) L 02/05/22 06:57 BUN 41 mg/dl (6-23) H 02/05/22 06:57 Creatinine 1.28 mg/dl (0.6-1.4) 02/05/22 06:57 Est Cr Clr Drug Dosing 45.1 ml/min 02/05/22 06:57 Est GFR ( Amer) 61.3 ml/min 02/05/22 06:57 Est GFR (Non-Af Amer) 52.9 ml/min 02/05/22 06:57 BUN/Creatinine Ratio 32.0 (10-20) H 02/05/22 06:57 Glucose 108 mg/dl (70-99(Fasting)) H 02/05/22 06:57 Estimat Average Glucose 108 mg/dl 02/01/22 23:35 Hemoglobin A1c 5.4 % (4.5-5.6) 02/01/22 23:35 Calcium 8.0 mg/dl (8.5-10.1) L 02/05/22 06:57 Magnesium 2.0 mg/dl (1.7-2.4) 02/02/22 01:28 Total Bilirubin 0.9 mg/dl (0.2-1.0) 02/04/22 06:14 AST 30 U/L (13-39) 02/04/22 06:14 ALT 14 U/L (7-52) 02/04/22 06:14 Alkaline Phosphatase 54 U/L (34-104) 02/04/22 06:14 Total Protein 4.9 gm/dl (6.0-8.3) L 02/04/22 06:14 Albumin 2.8 gm/dl (3.4-5.0) L 02/04/22 06:14 Globulin 2.1 gm/dl (2.5-4.0) L 02/04/22 06:14 Albumin/Globulin Ratio 1.3 (0.9-2) 02/04/22 06:14 25-OH Vitamin D Total 44.2 ng/ml (30-100) 02/03/22 06:40 TSH 2.501 uIu/ml (0.300-4.500) 02/01/22 23:35 Urine Color Yellow 02/01/22 23:55 Urine Appearance Clear (Clear) 02/01/22 23:55 Urine pH 7.5 (4.5-7.5) 02/01/22 23:55 Ur Specific [place] 1.017 (1.000-1.030) 02/01/22 23:55 Urine Protein Negative (Negative) 02/01/22 23:55 Urine Glucose (UA) Negative (Negative) 02/01/22 23:55 Urine Ketones Negative (Negative) 02/01/22 23:55 Urine Blood Negative (Negative) 02/01/22 23:55 Urine Nitrite Negative (Negative) 02/01/22 23:55 Urine Bilirubin Negative (Negative) 02/01/22 23:55 Urine Urobilinogen Negative (Negative) 02/01/22 23:55 Ur Leukocyte Esterase Negative (Negative) 02/01/22 23:55 Stool Occult Bld Scrn Negative (Negative) 02/05/22 16:30 SARS-CoV-2, RNA, NAAT NEGATIVE (NEGATIVE) 02/01/22 23:58 Blood Type O Positive 02/02/22 05:31 Blood Type Recheck O Positive 02/02/22 11:14 Antibody Screen NEGATIVE 02/02/22 05:31 Crossmatch See Detail 02/02/22 05:31 Impressions Chest X-Ray 02/01/22 23:25 XR chest 1V portable HISTORY: 81 years-old Male hip fx acute chest trauma status post fall COMPARISON: None TECHNIQUE: Supine AP view of the chest FINDINGS: Cardiac silhouette is mildly enlarged. 2 cm right midlung nodular opacity. No pneumothorax, pleural effusion, airspace consolidation or overt pulmonary edema. Bones appear grossly intact. IMPRESSION: 1. Mild cardiac megaly without acute process. 2. 2 mm right midlung nodular opacity is likely related to summation density with overlying pulmonary vasculature. A pulmonary nodule is considered less likely. Correlate with prior imaging. ACT 112: Negative or not required by law. The above report was generated using voice recognition software. It may contain grammatical, syntax or spelling errors. Electronically signed by: Spenser Chavez M.D. 02/02/2022 8:01 AM Hip X-Ray 02/02/22 15:30 INTRAOPERATIVE RADIOGRAPHS CLINICAL HISTORY: Open reduction and internal fixation of the right hip. Fluoroscopy time: 108 seconds. FINDINGS: 5 spot fluoroscopic views of the right hip are correlated with radiographs dated 02/02/2022. Intertrochanteric and intramedullary nails are placed transfixing an intertrochanteric fracture of the right proximal femur. Near anatomic alignment is restored. A single cortical lag screw transfixes the distal end of the intramedullary nail. The orthopedic hardware appears intact. IMPRESSION: Intraoperative images from open reduction and interval fixation of the right proximal femur. Electronically signed by: Martin Angulo M.D. 02/02/2022 8:41 PM
[2022-02-06 14:46] LABS: Basophils # (auto) 0.02 K/uL (0-0.2); Basophils % (auto) 0.2 %; Eosinophils % (auto) 1.2 %; Hematocrit (blood only) 22.9 % (40.1-51.0); Hemoglobin 7.7 g/dl (14.0-18.0); Immature Granulocytes # (auto) 0.03 K/uL (0.00-0.02); Immature Granulocytes % (auto) 0.4 %; Lymphocytes # (auto) 1.57 K/uL (1.2-3.4); Lymphocytes % (auto) 18.6 %; Mean Corpuscular Hemoglobin 32.2 pg (25.0-34.0); Mean Corpuscular Hgb Conc 33.6 g/dL (32.0-36.0); Mean Corpuscular Volume 95.8 fL (80.0-100.0); Mean Platelet Volume 9.4 fL (9.4-12.4); Monocytes # (auto) 1.08 K/uL (0.24-0.82); Monocytes % (auto) 12.8 %; Neutrophils # (auto) 5.63 K/uL (1.4-6.5); Neutrophils % (auto) 66.8 %; Platelet Count 201 K/uL (130-400); RDW Coefficient of Variation 13.5 % (11.5-14.5); RDW Standard Deviation 47.8 fL (36.4-46.3); Red Blood Count 2.39 M/uL (4.63-6.08); White Blood Count 8.43 K/ul (4.8-10.8)
[2022-02-06 15:10] LABS: RBC Morphology Unremarkable
[2022-02-06] MEDS: ENOXAPARIN INJ 40 MG/0.4 ML SYR SQ SCH (15:11)
[2022-02-06] MEDS: LATANOPROST 0.005% OP SOLN 2.5 ML BTL OPB SCH (20:15)
[2022-02-07] MEDS: oxyCODONE HCL IR 5 MG TAB (IMMEDIATE RELEASE) PO PRN ×2 (00:55→14:28)
[2022-02-07] MEDS: ACETAMINOPHEN 325 MG TAB PO SCH ×4 (04:12→20:50)
[2022-02-07 07:03] LABS: Basophils # (auto) 0.02 K/uL (0-0.2); Basophils % (auto) 0.2 %; Eosinophils # (auto) 0.01 K/uL (0-0.50); Eosinophils % (auto) 0.1 %; Hemoglobin 7.5 g/dl (14.0-18.0); Immature Granulocytes # (auto) 0.03 K/uL (0.00-0.02); Immature Granulocytes % (auto) 0.3 %; Lymphocytes # (auto) 0.67 K/uL (1.2-3.4); Lymphocytes % (auto) 6.6 %; Mean Corpuscular Hemoglobin 31.8 pg (25.0-34.0); Mean Corpuscular Hgb Conc 34.1 g/dL (32.0-36.0); Mean Corpuscular Volume 93.2 fL (80.0-100.0); Mean Platelet Volume 9.7 fL (9.4-12.4); Monocytes # (auto) 0.84 K/uL (0.24-0.82); Monocytes % (auto) 8.3 %; Neutrophils # (auto) 8.58 K/uL (1.4-6.5); Neutrophils % (auto) 84.5 %; Platelet Count 223 K/uL (130-400); RDW Coefficient of Variation 13.4 % (11.5-14.5); RDW Standard Deviation 46.2 fL (36.4-46.3); Red Blood Count 2.36 M/uL (4.63-6.08); White Blood Count 10.15 K/ul (4.8-10.8)
[2022-02-07 07:27] LABS: RBC Morphology Unremarkable
[2022-02-07] MEDS: MAGNESIUM HYDROXIDE SUSP 30 ML UDC PO SCH (07:33)
[2022-02-07] MEDS: POLYETHYLENE (MIRALAX) 17 GM PACK PO SCH (07:34)
[2022-02-07] MEDS: PANTOprazole 40 MG TAB PO SCH (07:34)
[2022-02-07] MEDS: TAMSULOSIN HCL 0.4 MG CAP PO SCH (07:35)
[2022-02-07] MEDS: amLODIPine BESYLATE 5 MG TAB PO SCH (07:35)
[2022-02-07] MEDS: UMECLIDINIUM/VILANTEROL 62.5/25MCG 7 PUFFS/INHALER INH SCH (07:35)
[2022-02-07] MEDS: FERROUS SULFATE 325 MG TAB PO SCH (07:35)
[2022-02-07] MEDS: QUEtiapine FUMARATE 50 MG TABCR PO SCH ×2 (07:35→20:50)
[2022-02-07 07:59] LABS: BUN Creatinine Ratio 28.9 (10-20); Calcium 7.8 mg/dl (8.5-10.1); Creatinine Clr Calc Pharmacy 45.4 ml/min; Est GFR (African American) 61.3 ml/min; Est GFR (Non-African American) 52.9 ml/min; Potassium 5.2 mmol/L (3.5-5.1)
--- NOTE | 2022-02-07 13:00 | Hospitalist Progress Note ---
Date of Service February 07, 2022 Assessment & Plan (1) Hip fracture, intertrochanteric: Plan: Patient is a 81-year-old male with past medical history of CVA, COPD, hypertension, dementia presented from [facility] after a fall. He was found to have acute impacted right intertrochanteric fracture in outpatient pelvic x- ray. Patient is sent to the ED for evaluation. He was admitted to the telemetry floor; patient underwent right trochanteric nailing by orthopedic on 02/02. Mechanical fall Right intertrochanteric fracture status post nailing on 02/02 Dementia with behavioral problem Afebrile, normotensive and saturating well in room air Hemoglobin is stable around 7.5 after initial downtrend after the surgery. Fecal occult negative. Hip x-ray after surgery shows interval fixation of the right proximal femur. Plan; Tylenol scheduled for pain control. Oxycodone as needed. Continue on DVT prophylaxis with Lovenox for total of 3 weeks after surgery. Continue PT/OT Continue on Seroquel 50 mg twice daily and Haldol as needed for agitation. Patient is on one-to-one due to periods of agitation and risks of pulling on his bandages and Villarreal. Will obtain psychiatric consultation to help with agitation. Add bowel regimen Urinary retention status post Villarreal placement -Failed trial of void twice since the surgery. -Villarreal placed again on 02/07. -Bladder rest for 7 to 10 days and trial of void again. Continue home medication including amlodipine, eyedrops, inhaler and tamsulosin. DVT Lovenox Full code [facility] He is currently one-to-one due to for agitation and risks of pulling the Villarreal and bandage. On home Seroquel 50 twice daily with QTC of 435 on 02/02. Will obtain psychiatric consultation to help with agitation. Daughter Sarah updated over the phone on 02/06. Unable to reach today. Admission and Anticipated Discharge Date Admission Date: February 02, 2022 Subjective Patient seen and examined at bedside. He failed trial of void and retained urine again; Villarreal was placed again. Review of Systems Review of Systems: All systems reviewed & are unremarkable except as noted in Subjective Physical Exam Physical Exam: GENERAL: Awake; hard of hearing. Not answering any questions. SKIN: Normal color, warm HEENT: [place] palpebral conjunctivae, no ptosis, dry buccal mucosa NECK : Supple, no tenderness CHEST : Decreased breath sounds, no tenderness HEART : RRR, no obvious murmurs ABDOMEN: Soft, nontender. EXTREMITIES : Bandage over right hip; clean dry and intact. NEUROLOGIC : Grossly moves all extremities. Results & Data Results & Data ([facility]) Vital Signs (Past 12 Hours) Vital Signs Temp Pulse Pulse Pulse Resp BP BP 02/07/22 11:00 36.7 C 97 H 18 101/62 02/07/22 09:08 37.3 C 81 86 18 113/47 L 127/58 L 02/07/22 08:00 02/07/22 07:40 75 02/07/22 06:59 37.3 C 86 18 113/47 L 02/07/22 03:00 36.7 C 102 H 18 155/71 H Pulse Ox O2 Del Method O2 Flow Rate 02/07/22 11:00 91 Room Air 02/07/22 09:08 98 02/07/22 08:00 Nasal Cannula 2 02/07/22 07:40 02/07/22 06:59 98 Nasal Cannula 2 02/07/22 03:00 91 Nasal Cannula 2 Laboratory Results Laboratory Results WBC 10.15 K/ul (4.8-10.8) 02/07/22 06:09 RBC 2.36 M/uL (4.63-6.08) L 02/07/22 06:09 Hgb 7.5 g/dl (14.0-18.0) L 02/07/22 06:09 Hct 22.0 % (40.1-51.0) L 02/07/22 06:09 MCV 93.2 fL (80.0-100.0) 02/07/22 06:09 MCH 31.8 pg (25.0-34.0) 02/07/22 06:09 MCHC 34.1 g/dL (32.0-36.0) 02/07/22 06:09 RDW Std Deviation 46.2 fL (36.4-46.3) 02/07/22 06:09 RDW Coeff of Silvino 13.4 % (11.5-14.5) 02/07/22 06:09 Plt Count 223 K/uL (130-400) 02/07/22 06:09 MPV 9.7 fL (9.4-12.4) 02/07/22 06:09 Immature Gran % (Auto) 0.3 % 02/07/22 06:09 Neut % (Auto) 84.5 % 02/07/22 06:09 Lymph % (Auto) 6.6 % 02/07/22 06:09 [place] % (Auto) 8.3 % 02/07/22 06:09 Eos % (Auto) 0.1 % 02/07/22 06:09 Baso % (Auto) 0.2 % 02/07/22 06:09 Neut # (Auto) 8.58 K/uL (1.4-6.5) H 02/07/22 06:09 Lymph # (Auto) 0.67 K/uL (1.2-3.4) L 02/07/22 06:09 [place] # (Auto) 0.84 K/uL (0.24-0.82) H 02/07/22 06:09 Eos # (Auto) 0.01 K/uL (0-0.50) 02/07/22 06:09 Baso # (Auto) 0.02 K/uL (0-0.2) 02/07/22 06:09 Immature Gran # (Auto) 0.03 K/uL (0.00-0.02) H 02/07/22 06:09 Toxic Granulation 1+ 02/04/22 06:14 RBC Morphology Unremarkable 02/07/22 06:09 Poikilocytosis Present 02/05/22 06:57 PT 10.9 Seconds (9.0-12.0) 02/01/22 23:35 INR 1.0 (0.9-1.1) 02/01/22 23:35 APTT 33.6 Seconds (21.0-31.0) H 02/01/22 23:35 PTT Ratio 1.2 02/01/22 23:35 Sodium 132 mmol/L (136-145) L 02/07/22 06:09 Potassium 5.2 mmol/L (3.5-5.1) H 02/07/22 06:09 Chloride 98 mmol/L (98-107) 02/07/22 06:09 Carbon Dioxide 30 mmol/L (21-32) 02/07/22 06:09 Anion Gap 4 (3-11) 02/07/22 06:09 BUN 37 mg/dl (6-23) H 02/07/22 06:09 Creatinine 1.28 mg/dl (0.6-1.4) 02/07/22 06:09 Est Cr Clr Drug Dosing 45.4 ml/min 02/07/22 06:09 Est GFR ( Amer) 61.3 ml/min 02/07/22 06:09 Est GFR (Non-Af Amer) 52.9 ml/min 02/07/22 06:09 BUN/Creatinine Ratio 28.9 (10-20) H 02/07/22 06:09 Glucose 134 mg/dl (70-99(Fasting)) H 02/07/22 06:09 Estimat Average Glucose 108 mg/dl 02/01/22 23:35 Hemoglobin A1c 5.4 % (4.5-5.6) 02/01/22 23:35 Calcium 7.8 mg/dl (8.5-10.1) L 02/07/22 06:09 Magnesium 2.0 mg/dl (1.7-2.4) 02/02/22 01:28 Total Bilirubin 0.9 mg/dl (0.2-1.0) 02/04/22 06:14 AST 30 U/L (13-39) 02/04/22 06:14 ALT 14 U/L (7-52) 02/04/22 06:14 Alkaline Phosphatase 54 U/L (34-104) 02/04/22 06:14 Total Protein 4.9 gm/dl (6.0-8.3) L 02/04/22 06:14 Albumin 2.8 gm/dl (3.4-5.0) L 02/04/22 06:14 Globulin 2.1 gm/dl (2.5-4.0) L 02/04/22 06:14 Albumin/Globulin Ratio 1.3 (0.9-2) 02/04/22 06:14 25-OH Vitamin D Total 44.2 ng/ml (30-100) 02/03/22 06:40 TSH 2.501 uIu/ml (0.300-4.500) 02/01/22 23:35 Urine Color Yellow 02/01/22 23:55 Urine Appearance Clear (Clear) 02/01/22 23:55 Urine pH 7.5 (4.5-7.5) 02/01/22 23:55 Ur Specific [place] 1.017 (1.000-1.030) 02/01/22 23:55 Urine Protein Negative (Negative) 02/01/22 23:55 Urine Glucose (UA) Negative (Negative) 02/01/22 23:55 Urine Ketones Negative (Negative) 02/01/22 23:55 Urine Blood Negative (Negative) 02/01/22 23:55 Urine Nitrite Negative (Negative) 02/01/22 23:55 Urine Bilirubin Negative (Negative) 02/01/22 23:55 Urine Urobilinogen Negative (Negative) 02/01/22 23:55 Ur Leukocyte Esterase Negative (Negative) 02/01/22 23:55 Stool Occult Bld Scrn Negative (Negative) 02/05/22 16:30 SARS-CoV-2, RNA, NAAT NEGATIVE (NEGATIVE) 02/07/22 04:34 Blood Type O Positive 02/02/22 05:31 Blood Type Recheck O Positive 02/02/22 11:14 Antibody Screen NEGATIVE 02/02/22 05:31 Crossmatch See Detail 02/02/22 05:31 Impressions Chest X-Ray 02/01/22 23:25 XR chest 1V portable HISTORY: 81 years-old Male hip fx acute chest trauma status post fall COMPARISON: None TECHNIQUE: Supine AP view of the chest FINDINGS: Cardiac silhouette is mildly enlarged. 2 cm right midlung nodular opacity. No pneumothorax, pleural effusion, airspace consolidation or overt pulmonary edema. Bones appear grossly intact. IMPRESSION: 1. Mild cardiac megaly without acute process. 2. 2 mm right midlung nodular opacity is likely related to summation density with overlying pulmonary vasculature. A pulmonary nodule is considered less likely. Correlate with prior imaging. ACT 112: Negative or not required by law. The above report was generated using voice recognition software. It may contain grammatical, syntax or spelling errors. Electronically signed by: Spenser Chavez M.D. 02/02/2022 8:01 AM Hip X-Ray 02/02/22 15:30 INTRAOPERATIVE RADIOGRAPHS CLINICAL HISTORY: Open reduction and internal fixation of the right hip. Fluoroscopy time: 108 seconds. FINDINGS: 5 spot fluoroscopic views of the right hip are correlated with radiographs dated 02/02/2022. Intertrochanteric and intramedullary nails are placed transfixing an intertrochanteric fracture of the right proximal femur. Near anatomic alignment is restored. A single cortical lag screw transfixes the distal end of the intramedullary nail. The orthopedic hardware appears intact. IMPRESSION: Intraoperative images from open reduction and interval fixation of the right proximal femur. Electronically signed by: Martin Angulo M.D. 02/02/2022 8:41 PM
[2022-02-07] MEDS: ENOXAPARIN INJ 40 MG/0.4 ML SYR SQ SCH (14:25)
[2022-02-07] MEDS: LATANOPROST 0.005% OP SOLN 2.5 ML BTL OPB SCH (20:49)
[2022-02-08] MEDS: ACETAMINOPHEN 325 MG TAB PO SCH ×4 (03:22→20:58)
[2022-02-08] MEDS: UMECLIDINIUM/VILANTEROL 62.5/25MCG 7 PUFFS/INHALER INH SCH (07:30)
[2022-02-08] MEDS: PANTOprazole 40 MG TAB PO SCH (07:30)
[2022-02-08] MEDS: FERROUS SULFATE 325 MG TAB PO SCH (07:30)
[2022-02-08] MEDS: QUEtiapine FUMARATE 50 MG TABCR PO SCH ×2 (07:30→20:58)
[2022-02-08] MEDS: TAMSULOSIN HCL 0.4 MG CAP PO SCH (07:30)
[2022-02-08] MEDS: amLODIPine BESYLATE 5 MG TAB PO SCH (07:30)
[2022-02-08] MEDS: POLYETHYLENE (MIRALAX) 17 GM PACK PO SCH (07:30)
[2022-02-08] MEDS: MAGNESIUM HYDROXIDE SUSP 30 ML UDC PO SCH (07:32)
[2022-02-08 10:10] LABS: Basophils # (auto) 0.02 K/uL (0-0.2); Basophils % (auto) 0.2 %; Eosinophils # (auto) 0.03 K/uL (0-0.50); Eosinophils % (auto) 0.3 %; Hematocrit (blood only) 22.9 % (40.1-51.0); Hemoglobin 7.6 g/dl (14.0-18.0); Immature Granulocytes # (auto) 0.04 K/uL (0.00-0.02); Immature Granulocytes % (auto) 0.4 %; Lymphocytes # (auto) 0.98 K/uL (1.2-3.4); Lymphocytes % (auto) 10.9 %; Mean Corpuscular Hemoglobin 31.4 pg (25.0-34.0); Mean Corpuscular Hgb Conc 33.2 g/dL (32.0-36.0); Mean Corpuscular Volume 94.6 fL (80.0-100.0); Mean Platelet Volume 9.3 fL (9.4-12.4); Monocytes # (auto) 1.06 K/uL (0.24-0.82); Monocytes % (auto) 11.7 %; Neutrophils % (auto) 76.5 %; Platelet Count 263 K/uL (130-400); RDW Coefficient of Variation 13.5 % (11.5-14.5); RDW Standard Deviation 46.7 fL (36.4-46.3); Red Blood Count 2.42 M/uL (4.63-6.08); White Blood Count 9.03 K/ul (4.8-10.8)
[2022-02-08 10:39] LABS: Polychromasia 1+
[2022-02-08] MEDS: oxyCODONE HCL IR 5 MG TAB (IMMEDIATE RELEASE) PO PRN (10:39)
[2022-02-08 10:47] LABS: Albumin Globulin Ratio 1.3 (0.9-2); Albumin Level 2.8 gm/dl (3.4-5.0); BUN Creatinine Ratio 27.1 (10-20); Bilirubin,Total 2.2 mg/dl (0.2-1.0); Calcium 8.3 mg/dl (8.5-10.1); Creatinine Clr Calc Pharmacy 43.7 ml/min; Est GFR (African American) 58.5 ml/min; Est GFR (Non-African American) 50.5 ml/min; Globulin 2.2 gm/dl (2.5-4.0); Potassium 4.8 mmol/L (3.5-5.1)
--- NOTE | 2022-02-08 11:43 | Hospitalist Progress Note ---
Date of Service February 08, 2022 Assessment & Plan (1) Hip fracture, intertrochanteric: Plan: Patient is a 81-year-old male with past medical history of CVA, COPD, hypertension, dementia presented from [facility] after a fall. He was found to have acute impacted right intertrochanteric fracture in outpatient pelvic x- ray. Patient is sent to the ED for evaluation. He was admitted to the telemetry floor; patient underwent right trochanteric nailing by orthopedic on 02/02. Mechanical fall Right intertrochanteric fracture status post nailing on 02/02 Dementia with behavioral problem Afebrile, normotensive and saturating well in room air Hemoglobin is stable around 7.5 after initial downtrend after the surgery. Fecal occult negative. Hip x-ray after surgery shows interval fixation of the right proximal femur. Plan; Tylenol scheduled for pain control. Oxycodone as needed. Continue on DVT prophylaxis with Lovenox for total of 3 weeks after surgery. Continue PT/OT Continue on Seroquel 50 mg twice daily and Haldol as needed for agitation. Patient is on one-to-one due to periods of agitation and risks of pulling on his bandages and Villarreal. Will obtain psychiatric consultation to help with agitation. Add bowel regimen Urinary retention status post Villarreal placement -Failed trial of void twice since the surgery. -Villarreal placed again on 02/07. -Bladder rest for 7 to 10 days and trial of void again. Continue home medication including amlodipine, eyedrops, inhaler and tamsulosin. DVT Lovenox [facility]. He is currently one-to-one due to for agitation and risks of pulling the Villarreal and bandage. on home Seroquel 50 twice daily with QTC of 435 on 02/02. Daughter Sarah updated over the phone. Admission and Anticipated Discharge Date Admission Date: February 02, 2022 Subjective Patient is seen and examined at bedside. He is comfortable; not in any distress. He continues to try to pull off his Villarreal and left thigh bandages. Review of Systems Review of Systems: Unobtainable due to cognitive status Physical Exam Physical Exam: GENERAL: Awake; hard of hearing. Not answering any questions. SKIN: Normal color, warm HEENT: [place] palpebral conjunctivae, no ptosis, dry buccal mucosa NECK : Supple, no tenderness CHEST : Decreased breath sounds, no tenderness HEART : RRR, no obvious murmurs ABDOMEN: Soft, nontender. Villarreal in place draining clear urine. EXTREMITIES : Bandage over right hip; clean dry and intact. NEUROLOGIC : Grossly moves all extremities. Results & Data Results & Data ([facility]) Vital Signs (Past 12 Hours) Vital Signs Temp Pulse Pulse Resp BP BP Pulse Ox 02/08/22 11:15 36.9 C 100 H 20 152/64 H 93 02/08/22 08:00 71 02/08/22 07:00 36.7 C 84 18 132/60 97 02/08/22 03:38 36.9 C 83 16 138/57 L 96 02/08/22 00:46 87 02/08/22 00:20 O2 Del Method O2 Flow Rate 02/08/22 11:15 Room Air 02/08/22 08:00 02/08/22 07:00 Nasal Cannula 2 02/08/22 03:38 Nasal Cannula 3 02/08/22 00:46 02/08/22 00:20 Nasal Cannula 2 Laboratory Results Laboratory Results WBC 9.03 K/ul (4.8-10.8) 02/08/22 09:41 RBC 2.42 M/uL (4.63-6.08) L 02/08/22 09:41 Hgb 7.6 g/dl (14.0-18.0) L 02/08/22 09:41 Hct 22.9 % (40.1-51.0) L 02/08/22 09:41 MCV 94.6 fL (80.0-100.0) 02/08/22 09:41 MCH 31.4 pg (25.0-34.0) 02/08/22 09:41 MCHC 33.2 g/dL (32.0-36.0) 02/08/22 09:41 RDW Std Deviation 46.7 fL (36.4-46.3) H 02/08/22 09:41 RDW Coeff of Silvino 13.5 % (11.5-14.5) 02/08/22 09:41 Plt Count 263 K/uL (130-400) 02/08/22 09:41 MPV 9.3 fL (9.4-12.4) L 02/08/22 09:41 Immature Gran % (Auto) 0.4 % 02/08/22 09:41 Neut % (Auto) 76.5 % 02/08/22 09:41 Lymph % (Auto) 10.9 % 02/08/22 09:41 Ward % (Auto) 11.7 % 02/08/22 09:41 Eos % (Auto) 0.3 % 02/08/22 09:41 Baso % (Auto) 0.2 % 02/08/22 09:41 Neut # (Auto) 6.90 K/uL (1.4-6.5) H 02/08/22 09:41 Lymph # (Auto) 0.98 K/uL (1.2-3.4) L 02/08/22 09:41 Ward # (Auto) 1.06 K/uL (0.24-0.82) H 02/08/22 09:41 Eos # (Auto) 0.03 K/uL (0-0.50) 02/08/22 09:41 Baso # (Auto) 0.02 K/uL (0-0.2) 02/08/22 09:41 Immature Gran # (Auto) 0.04 K/uL (0.00-0.02) H 02/08/22 09:41 Toxic Granulation 1+ 02/04/22 06:14 RBC Morphology Unremarkable 02/07/22 06:09 Polychromasia 1+ 02/08/22 09:41 Poikilocytosis Present 02/05/22 06:57 PT 10.9 Seconds (9.0-12.0) 02/01/22 23:35 INR 1.0 (0.9-1.1) 02/01/22 23:35 APTT 33.6 Seconds (21.0-31.0) H 02/01/22 23:35 PTT Ratio 1.2 02/01/22 23:35 Sodium 134 mmol/L (136-145) L 02/08/22 09:41 Potassium 4.8 mmol/L (3.5-5.1) 02/08/22 09:41 Chloride 99 mmol/L (98-107) 02/08/22 09:41 Carbon Dioxide 31 mmol/L (21-32) 02/08/22 09:41 Anion Gap 4 (3-11) 02/08/22 09:41 BUN 36 mg/dl (6-23) H 02/08/22 09:41 Creatinine 1.33 mg/dl (0.6-1.4) 02/08/22 09:41 Est Cr Clr Drug Dosing 43.7 ml/min 02/08/22 09:41 Est GFR ( Amer) 58.5 ml/min 02/08/22 09:41 Est GFR (Non-Af Amer) 50.5 ml/min 02/08/22 09:41 BUN/Creatinine Ratio 27.1 (10-20) H 02/08/22 09:41 Glucose 149 mg/dl (70-99(Fasting)) H 02/08/22 09:41 Estimat Average Glucose 108 mg/dl 02/01/22 23:35 Hemoglobin A1c 5.4 % (4.5-5.6) 02/01/22 23:35 Calcium 8.3 mg/dl (8.5-10.1) L 02/08/22 09:41 Magnesium 2.0 mg/dl (1.7-2.4) 02/02/22 01:28 Total Bilirubin 2.2 mg/dl (0.2-1.0) H 02/08/22 09:41 AST 17 U/L (13-39) 02/08/22 09:41 ALT 14 U/L (7-52) 02/08/22 09:41 Alkaline Phosphatase 53 U/L (34-104) 02/08/22 09:41 Total Protein 5.0 gm/dl (6.0-8.3) L 02/08/22 09:41 Albumin 2.8 gm/dl (3.4-5.0) L 02/08/22 09:41 Globulin 2.2 gm/dl (2.5-4.0) L 02/08/22 09:41 Albumin/Globulin Ratio 1.3 (0.9-2) 02/08/22 09:41 25-OH Vitamin D Total 44.2 ng/ml (30-100) 02/03/22 06:40 TSH 2.501 uIu/ml (0.300-4.500) 02/01/22 23:35 Urine Color Yellow 02/01/22 23:55 Urine Appearance Clear (Clear) 02/01/22 23:55 Urine pH 7.5 (4.5-7.5) 02/01/22 23:55 Ur Specific [place] 1.017 (1.000-1.030) 02/01/22 23:55 Urine Protein Negative (Negative) 02/01/22 23:55 Urine Glucose (UA) Negative (Negative) 02/01/22 23:55 Urine Ketones Negative (Negative) 02/01/22 23:55 Urine Blood Negative (Negative) 02/01/22 23:55 Urine Nitrite Negative (Negative) 02/01/22 23:55 Urine Bilirubin Negative (Negative) 02/01/22 23:55 Urine Urobilinogen Negative (Negative) 02/01/22 23:55 Ur Leukocyte Esterase Negative (Negative) 02/01/22 23:55 Stool Occult Bld Scrn Negative (Negative) 02/05/22 16:30 SARS-CoV-2, RNA, NAAT NEGATIVE (NEGATIVE) 02/07/22 04:34 Blood Type O Positive 02/02/22 05:31 Blood Type Recheck O Positive 02/02/22 11:14 Antibody Screen NEGATIVE 02/02/22 05:31 Crossmatch See Detail 02/02/22 05:31 Impressions Chest X-Ray 02/01/22 23:25 XR chest 1V portable HISTORY: 81 years-old Male hip fx acute chest trauma status post fall COMPARISON: None TECHNIQUE: Supine AP view of the chest FINDINGS: Cardiac silhouette is mildly enlarged. 2 cm right midlung nodular opacity. No pneumothorax, pleural effusion, airspace consolidation or overt pulmonary edema. Bones appear grossly intact. IMPRESSION: 1. Mild cardiac megaly without acute process. 2. 2 mm right midlung nodular opacity is likely related to summation density with overlying pulmonary vasculature. A pulmonary nodule is considered less likely. Correlate with prior imaging. ACT 112: Negative or not required by law. The above report was generated using voice recognition software. It may contain grammatical, syntax or spelling errors. Electronically signed by: Spenser Chavez M.D. 02/02/2022 8:01 AM Hip X-Ray 02/02/22 15:30 INTRAOPERATIVE RADIOGRAPHS CLINICAL HISTORY: Open reduction and internal fixation of the right hip. Fluoroscopy time: 108 seconds. FINDINGS: 5 spot fluoroscopic views of the right hip are correlated with radiographs dated 02/02/2022. Intertrochanteric and intramedullary nails are placed transfixing an intertrochanteric fracture of the right proximal femur. Near anatomic alignment is restored. A single cortical lag screw transfixes the distal end of the intramedullary nail. The orthopedic hardware appears intact. IMPRESSION: Intraoperative images from open reduction and interval fixation of the right proximal femur. Electronically signed by: Mratin Angulo M.D. 02/02/2022 8:41 PM
--- NOTE | 2022-02-08 11:58 | Communication Note ---
Date of Service: February 08, 2022 Consult request received for medication recommendations regarding behavioral agitation in context of dementia. Psychiatry consult to be done within next 24 hours.
[2022-02-08] MEDS: ENOXAPARIN INJ 40 MG/0.4 ML SYR SQ SCH (14:25)
--- NOTE | 2022-02-08 15:27 | Psychiatric Consultation ---
Date of Consultation February 08, 2022 Impression / Recommendations Impression Diagnostically consistent with encephalopathy/delirium superimposed on dementia with behavioral disturbance. Goal in dementia is to avoid medication management of behaviors if possible by maximizing non-pharmacologic strategies for behavioral management and limited data on efficacy of antipsychotics for delirium. However, given worsening agitation/aggression risk/benefit profile favors titration of Seroquel. Note all antipsychotic medications carry black box warning for increased risk of all-cause mortality in setting of dementia. (1) Encephalopathy acute: (2) Dementia with behavioral disturbance: Plan -1-on-1 at discretion of hospitalist given level of agitation -Consider increasing seroquel XR from 50mg BID to 50mg qAM and 100mg qhs (can be seroquel regular relase or seroquel XR) with additional 12.5 mg BID prn for behavioral management as needed; would monitor Na+ as Seroquel can contribute to hyponatremia -If behaviors worsen or hypersexuality intensifies could consider addition of depakote trial for behavorial management -Consider melatonin 3mg qhs -Continue medical workup to rule out and treat any underlying causes contributing to potential delirium, avoid or limit use of deliriogenic medications (benzodiazepines, opioids, anticholinergics) -Continue with delirium prevention measures: raising blinds during the day, closing at night, contact with family/friends, explaining procedures/nursing care measures prior to physical contact, correct any hearing and visual impairments (if he has hearing aids ideally this could be brought in) -For behavioral emergency: olanzapine 2.5 mg IM x 1 (DO NOT exceed 10mg per 24 hours, check EKG if IM dose required, NEVER co-administer with IM or IV benzodiazepines). Psych History Identifying Data 81 yo man with history of dementia who lives at [facility] was admitted medically following surgery for hip replacement. Psychiatry consulted for medication recommendations for agitation. Chief Complaint "It is in [place]". History of Present Illness Tad is hard of hearing and does not engage much with me on interview. Sitting in bed chewing on the cord for nasal canula of oxygen. Typically takes seroquel XR 50mg BID in outpatient setting at personal [facility]. Since surgery has been more agitated with swearing, crude statements and hypersexual statements toward 1-on-1 and nursing. Has not required any IM medications for behavioral agitation. Further details per psych liason note from earlier today: "Met with patient for initial interaction/interview. He was laying in bed with 1:1 present. Patient makes nonsensical statements and is irritable throughout entire interaction. Patient is sexually preoccupied and inappropriate with staff. He makes statements that are crude such as "get on this bed and let's fuck". Patient also makes statements such as "you keep that up and I'll punch you right in the face". Patient believes that he is "the boss" and wants staff to do what he says. Patient made aggressive statements but did not advance toward staff during the interaction. He attempts to be intimidating. He becomes easily overwhelmed by increased stimuli. Patient is unable to converse or focus on relevant topics for long due to his thoughts being occupied by his delusions." Allergies Allergy/AdvReac Type Severity Reaction Status Date / Time fluticasone Allergy Unknown ON MED LIST Verified 02/01/22 23:57 [From [facility]] salmeterol Allergy Unknown ON MED LIST Verified 02/01/22 23:57 [From [facility]] Home Medications Medication Instructions Recorded Confirmed Type acetaminophen 325 mg tablet 650 mg PO Q6H PRN FEVER/PAIN 02/01/22 02/02/22 History (Tylenol) albuterol sulfate 90 mcg/actuation 2 puff inhalation Q6H PRN Wheezing 02/01/22 02/02/22 History aerosol inhaler (Ventolin HFA) ascorbic acid (vitamin C) 500 mg 500 mg PO DAILY 02/01/22 02/02/22 History tablet (Vitamin C) ferrous sulfate 325 mg (65 mg 325 mg PO DAILY 02/01/22 02/02/22 History iron) tablet haloperidol lactate 2 mg/mL oral 2 mg PO Q8H PRN Agitation 02/01/22 02/02/22 History concentrate latanoprost 0.005 % eye drops 1 drp OPB PM 02/01/22 02/02/22 History omeprazole 20 mg capsule,delayed 20 mg PO DAILY 02/01/22 02/02/22 History release quetiapine 50 mg tablet,extended 50 mg PO BID 02/01/22 02/02/22 History release 24 hr (Seroquel XR) tadalafil 5 mg tablet 5 mg PO HS 02/01/22 02/02/22 History tamsulosin 0.4 mg capsule (Flomax) 0.4 mg PO DAILY 02/01/22 02/02/22 History umeclidinium 62.5 mcg-vilanterol 1 inh inhalation DAILY 02/01/22 02/02/22 History 25 mcg/actuation powdr for inhalation (Anoro Ellipta) Personal History Beliefs That Will Affect Care: None Patient History Medical History Anemia Chronic anemia COPD (chronic obstructive pulmonary disease) CVA (cerebral vascular accident) Dementia Pulmonary hypertension Surgical History No significant past surgical history Social History Smoking Status: Former smoker Tobacco Type: Cigarettes Hx Alcohol Use: No Hx Substance Use: No Preferred Language: Slovak Communication Ability: Unable Communication Ability Comment: pt unable to communicate, have not spoke to Sarah Carrot Buncher Required: No Beliefs That Will Affect Care: None Current Living Situation: [facility] Current Living Situation Comment: locked unit Assistive Devices: None Physical Exam Psychiatric: Orientation: alert and oriented to person; + not oriented to place and + not oriented to time Apperance: + disheveled Eye Contact: + fair eye contact Motor Behavior: no abnormal motor movements Speech: + abnormal rate/rhythm/volume of speech (brief ) Affect: + labile affect Mood: + irritable mood Thought Process: + looseness of associations Thought Content: + preoccupation Suicidal Thoughts: denies suicidal thoughts Homicidal Thoughts: denies homicidal thoughts Hallucinations: no auditory hallucinations and no visual hallucinations Cognition: language grossly intact; + recent memory not intact and + attention not intact Insight: + severely impaired insight Judgement: + severely impaired judgement Vital Signs (Past 24 Hours): Last Vital Signs Temp 36.9 C 02/08/22 11:15 Pulse 100 H 02/08/22 11:15 Resp 20 02/08/22 11:15 BP 152/64 H 02/08/22 11:15 Pulse Ox 93 02/08/22 11:15 O2 Del Method 02/08/22 11:15 O2 Flow Rate 2 02/08/22 07:00 Review of Systems Unobtainable due to cognitive status Results & Data ([facility]) Laboratory Results QTc normal, low Na+ Medications Administered Acetaminophen (Acetaminophen 325 Mg Tab) 650 mg PO Q8 SHEILA Stop: 03/10/22 13:59 Last Admin: 02/08/22 14:25 Dose: 650 mg Documented By: JASPAL Amlodipine Besylate (Amlodipine Besylate 5 Mg Tab) 2.5 mg PO QAM SHEILA Stop: 03/05/22 08:59 Last Admin: 02/08/22 07:30 Dose: 2.5 mg Documented By: Admin: 02/07/22 07:35 Dose: 2.5 mg Documented By: Admin: 02/06/22 07:52 Dose: 2.5 mg Documented By: Admin: 02/05/22 07:38 Dose: 2.5 mg Documented By: Admin: 02/04/22 08:54 Dose: 2.5 mg Documented By: Admin: 02/03/22 09:27 Dose: 2.5 mg Documented By: ESHA Enoxaparin Sodium (Enoxaparin Inj 40 Mg/0.4 Ml Syr) 40 mg SQ Q24H SHEILA Stop: 03/05/22 14:59 Last Admin: 02/08/22 14:25 Dose: 40 mg Documented By: Admin: 02/07/22 14:25 Dose: 40 mg Documented By: Admin: 02/06/22 15:11 Dose: 40 mg Documented By: Admin: 02/05/22 15:20 Dose: 40 mg Documented By: Admin: 02/04/22 15:48 Dose: 40 mg Documented By: Admin: 02/03/22 15:33 Dose: 40 mg Documented By: ESHA Ferrous Sulfate (Ferrous Sulfate 325 Mg Tab) 325 mg PO DAILY SHEILA Stop: 03/04/22 08:59 Last Admin: 02/08/22 07:30 Dose: 325 mg Documented By: Admin: 02/07/22 07:35 Dose: 325 mg Documented By: Admin: 02/06/22 07:52 Dose: 325 mg Documented By: Admin: 02/05/22 07:39 Dose: 325 mg Documented By: Admin: 02/04/22 08:56 Dose: 325 mg Documented By: Admin: 02/03/22 09:27 Dose: 325 mg Documented By: Admin: 02/02/22 08:07 Dose: Not Given Documented By: KTS Haloperidol Lactate (Haloperidol Lactate 5 Mg/Ml 1 Ml Vial) 2.5 mg IM Q2H PRN PRN Reason: Agitation Stop: 03/04/22 03:05 Last Admin: 02/04/22 23:20 Dose: 2.5 mg Documented By: Admin: 02/03/22 08:07 Dose: 2.5 mg Documented By: AK Latanoprost (Latanoprost 0.005% Op Soln 2.5 Ml Btl) 1 drops OPB PM SHEILA Stop: 03/04/22 20:59 Last Admin: 02/07/22 20:49 Dose: 1 drops Documented By: Admin: 02/06/22 20:15 Dose: 1 drops Documented By: Admin: 02/05/22 21:02 Dose: 1 drops Documented By: Admin: 02/04/22 19:59 Dose: 1 drops Documented By: Admin: 02/03/22 23:30 Dose: Not Given Documented By: Admin: 02/02/22 21:47 Dose: Not Given Documented By: JAC Magnesium Hydroxide (Magnesium Hydroxide Susp 30 Ml Udc) 30 ml PO DAILY SHEILA Stop: 03/07/22 09:29 Last Admin: 02/08/22 07:32 Dose: Not Given Documented By: Admin: 02/07/22 07:33 Dose: 30 ml Documented By: Admin: 02/06/22 07:50 Dose: 30 ml Documented By: Admin: 02/05/22 09:49 Dose: 30 ml Documented By: JASPAL Miscellaneous (Tadalafil (For Bph): Order Awaiting Action) 1 each N/A QS SHEILA Stop: 03/04/22 07:59 Last Admin: 02/08/22 06:54 Dose: Not Given Documented By: Admin: 02/08/22 01:31 Dose: Not Given Documented By: Admin: 02/07/22 16:03 Dose: Not Given Documented By: Admin: 02/07/22 07:31 Dose: Not Given Documented By: Admin: 02/07/22 00:45 Dose: Not Given Documented By: Admin: 02/06/22 15:48 Dose: Not Given Documented By: Admin: 02/06/22 07:53 Dose: Not Given Documented By: Admin: 02/05/22 23:33 Dose: Not Given Documented By: Admin: 02/05/22 15:20 Dose: Not Given Documented By: Admin: 02/05/22 07:40 Dose: Not Given Documented By: Admin: 02/04/22 23:11 Dose: Not Given Documented By: Admin: 02/04/22 15:52 Dose: Not Given Documented By: Admin: 02/04/22 08:51 Dose: Not Given Documented By: Admin: 02/04/22 00:42 Dose: Not Given Documented By: Admin: 02/03/22 16:21 Dose: Not Given Documented By: Admin: 02/03/22 09:23 Dose: Not Given Documented By: Admin: 02/03/22 00:15 Dose: Not Given Documented By: Admin: 02/02/22 12:38 Dose: Not Given Documented By: Admin: 02/02/22 07:22 Dose: Not Given Documented By: KTS Oxycodone HCl (Oxycodone Hcl Ir 5 Mg Tab (Immediate Release)) 5 mg PO Q4H PRN PRN Reason: Pain Stop: 02/16/22 01:44 Last Admin: 02/08/22 10:39 Dose: 5 mg Documented By: Admin: 02/07/22 14:28 Dose: 5 mg Documented By: Admin: 02/07/22 00:55 Dose: 5 mg Documented By: Admin: 02/06/22 14:47 Dose: 5 mg Documented By: Admin: 02/06/22 07:51 Dose: 5 mg Documented By: Admin: 02/05/22 21:01 Dose: 5 mg Documented By: Admin: 02/05/22 13:42 Dose: 5 mg Documented By: Admin: 02/04/22 08:52 Dose: 5 mg Documented By: Admin: 02/03/22 15:32 Dose: 5 mg Documented By: Admin: 02/03/22 07:56 Dose: 5 mg Documented By: Admin: 02/02/22 20:26 Dose: 5 mg Documented By: JAC Pantoprazole Sodium (Pantoprazole 40 Mg Tab) 40 mg PO DAILY SHEILA Stop: 03/04/22 08:59 Last Admin: 02/08/22 07:30 Dose: 40 mg Documented By: Admin: 02/07/22 07:34 Dose: 40 mg Documented By: Admin: 02/06/22 07:52 Dose: 40 mg Documented By: Admin: 02/05/22 07:39 Dose: 40 mg Documented By: Admin: 02/04/22 08:56 Dose: 40 mg Documented By: Admin: 02/03/22 09:27 Dose: 40 mg Documented By: Admin: 02/02/22 08:08 Dose: Not Given Documented By: KTS Polyethylene Glycol (Polyethylene (Miralax) 17 Gm Pack) 17 gm PO DAILY SHEILA Stop: 03/06/22 10:44 Last Admin: 02/08/22 07:30 Dose: Not Given Documented By: Admin: 02/07/22 07:34 Dose: 17 gm Documented By: Admin: 02/06/22 07:52 Dose: 17 gm Documented By: Admin: 02/05/22 07:38 Dose: 17 gm Documented By: Admin: 02/04/22 11:31 Dose: 17 gm Documented By: SANA Quetiapine Fumarate (Quetiapine Fumarate 50 Mg Tabcr) 50 mg PO BID SHEILA Stop: 03/04/22 08:59 Last Admin: 02/08/22 07:30 Dose: 50 mg Documented By: Admin: 02/07/22 20:50 Dose: 50 mg Documented By: Admin: 02/07/22 07:35 Dose: 50 mg Documented By: Admin: 02/06/22 20:16 Dose: 50 mg Documented By: Admin: 02/06/22 07:53 Dose: 50 mg Documented By: Admin: 02/05/22 21:02 Dose: 50 mg Documented By: Admin: 02/05/22 07:38 Dose: 50 mg Documented By: Admin: 02/04/22 22:04 Dose: Not Given Documented By: Admin: 02/04/22 08:56 Dose: 50 mg Documented By: Admin: 02/03/22 22:40 Dose: 50 mg Documented By: Admin: 02/03/22 09:27 Dose: 50 mg Documented By: Admin: 02/02/22 20:00 Dose: 50 mg Documented By: Admin: 02/02/22 08:09 Dose: Not Given Documented By: JESS Tamsulosin HCl (Tamsulosin Hcl 0.4 Mg Cap) 0.4 mg PO DAILY SHEILA Stop: 03/04/22 08:59 Last Admin: 02/08/22 07:30 Dose: 0.4 mg Documented By: Admin: 02/07/22 07:35 Dose: 0.4 mg Documented By: Admin: 02/06/22 07:53 Dose: 0.4 mg Documented By: Admin: 02/05/22 07:39 Dose: 0.4 mg Documented By: Admin: 02/04/22 08:56 Dose: 0.4 mg Documented By: Admin: 02/03/22 09:27 Dose: 0.4 mg Documented By: Admin: 02/02/22 08:09 Dose: Not Given Documented By: JESS Umeclidinium/Vilanterol (Umeclidinium/Vilanterol 62.5/25mcg 7 Puffs/Inhaler) 1 puffs INH DAILY SHEILA Stop: 03/04/22 08:59 Last Admin: 02/08/22 07:30 Dose: 1 puffs Documented By: Admin: 02/07/22 07:35 Dose: 1 puffs Documented By: Admin: 02/06/22 07:50 Dose: 1 puffs Documented By: Admin: 02/05/22 07:37 Dose: 1 puffs Documented By: Admin: 02/04/22 08:56 Dose: 1 puffs Documented By: Admin: 02/03/22 09:26 Dose: 1 puffs Documented By: Admin: 02/02/22 08:09 Dose: Not Given Documented By: JESS Coding Level of Care Code 20557 Inpt Consult Level 3 Diagnoses Encephalopathy acute G93.40 Dementia with behavioral disturbance F03.918
[2022-02-08] MEDS: LATANOPROST 0.005% OP SOLN 2.5 ML BTL OPB SCH (20:55)
[2022-02-08] MEDS: HALOPERIDOL LACTATE 5 MG/ML 1 ML VIAL IM PRN (23:27)
[2022-02-09] MEDS ORDERED: LOPERAMIDE LIQUID 120 ML BOTTLE PO STA (03:21)
[2022-02-09 06:10] LABS: Basophils # (auto) 0.02 K/uL (0-0.2); Basophils % (auto) 0.2 %; Eosinophils # (auto) 0.04 K/uL (0-0.50); Eosinophils % (auto) 0.4 %; Hematocrit (blood only) 23.3 % (40.1-51.0); Hemoglobin 7.8 g/dl (14.0-18.0); Immature Granulocytes # (auto) 0.04 K/uL (0.00-0.02); Immature Granulocytes % (auto) 0.4 %; Lymphocytes # (auto) 0.96 K/uL (1.2-3.4); Lymphocytes % (auto) 10.5 %; Mean Corpuscular Hemoglobin 31.2 pg (25.0-34.0); Mean Corpuscular Hgb Conc 33.5 g/dL (32.0-36.0); Mean Corpuscular Volume 93.2 fL (80.0-100.0); Mean Platelet Volume 9.2 fL (9.4-12.4); Monocytes # (auto) 0.96 K/uL (0.24-0.82); Monocytes % (auto) 10.5 %; Neutrophils # (auto) 7.08 K/uL (1.4-6.5); Platelet Count 294 K/uL (130-400); RDW Coefficient of Variation 13.6 % (11.5-14.5); RDW Standard Deviation 46.7 fL (36.4-46.3)
[2022-02-09] MEDS: ACETAMINOPHEN 325 MG TAB PO SCH ×4 (06:17→23:07)
[2022-02-09 06:42] LABS: Polychromasia 1+
[2022-02-09 06:45] LABS: BUN Creatinine Ratio 30.2 (10-20); Calcium 8.2 mg/dl (8.5-10.1); Creatinine Clr Calc Pharmacy 43.2 ml/min; Est GFR (African American) 62.5 ml/min; Est GFR (Non-African American) 53.9 ml/min; Potassium 4.4 mmol/L (3.5-5.1)
[2022-02-09] MEDS: QUEtiapine FUMARATE 50 MG TABCR PO SCH ×3 (08:25→23:17)
[2022-02-09] MEDS: PANTOprazole 40 MG TAB PO SCH (08:25)
[2022-02-09] MEDS: FERROUS SULFATE 325 MG TAB PO SCH (08:25)
[2022-02-09] MEDS: TAMSULOSIN HCL 0.4 MG CAP PO SCH (08:26)
[2022-02-09] MEDS: MAGNESIUM HYDROXIDE SUSP 30 ML UDC PO SCH (08:26)
[2022-02-09] MEDS: amLODIPine BESYLATE 5 MG TAB PO SCH (08:26)
[2022-02-09] MEDS: oxyCODONE HCL IR 5 MG TAB (IMMEDIATE RELEASE) PO PRN (08:27)
[2022-02-09] MEDS: HALOPERIDOL LACTATE 5 MG/ML 1 ML VIAL IM PRN (08:27)
[2022-02-09] MEDS: UMECLIDINIUM/VILANTEROL 62.5/25MCG 7 PUFFS/INHALER INH SCH (08:27)
[2022-02-09] MEDS: POLYETHYLENE (MIRALAX) 17 GM PACK PO SCH (08:27)
[2022-02-09] MEDS ORDERED: OLANZapine 10 MG/2.1 ML SDV IM ONE ×2 (10:46→10:56)
[2022-02-09] MEDS ORDERED: POLYETHYLENE (MIRALAX) 17 GM PACK PO PRN (12:34)
[2022-02-09] MEDS ORDERED: MAGNESIUM HYDROXIDE SUSP 30 ML UDC PO PRN (12:35)
[2022-02-09] MEDS ORDERED: OLANZapine 10 MG/2.1 ML SDV IM PRN (14:27)
[2022-02-09] MEDS: ENOXAPARIN INJ 40 MG/0.4 ML SYR SQ SCH (15:30)
--- NOTE | 2022-02-09 17:06 | Hospitalist Progress Note ---
Date of Service February 09, 2022 Assessment & Plan (1) Hip fracture, intertrochanteric: Plan: Patient is a 81 yr male with H/O CVA, COPD, hypertension, dementia presented from long-term after a fall. He was found to have acute impacted right intertrochanteric fracture in outpatient pelvic x-ray. Patient is sent to the ED for evaluation. He was admitted to the telemetry floor; patient underwent right trochanteric nailing by orthopedic on 02/02. Mechanical fall Right intertrochanteric fracture status post nailing on 02/02 Postoperative blood loss anemia Toe-touch weightbearing Patient orthopedics input Continue wound care Continue p.o. daily needs follow-up with orthopedics upon discharge Monitor CBC Bowel regimen to prevent constipation Dementia with behavioral problem Acute metabolic encephalopathy/delirium in setting of dementia with behavioral disturbance Seroquel dose increased to 50 mg every morning, 100 mg nightly Added melatonin 3 mg at bedtime Appreciate psychiatry input Urinary retention S/P Villarreal placement -Failed trial of void twice since the surgery. -Villarreal placed again on 02/07. Continue Villarreal for now Continue tamsulosin Hypertension Continue amlodipine DVT Px: Lovenox SQ Code Status Full code Disposition [facility] dementia unit as able Admission and Anticipated Discharge Date Admission Date: February 02, 2022 Subjective Patient is seen and examined at bedside Confused, combative and agitated this morning Unable to provide much history Discussed with psychiatrist on-call Review of Systems Review of Systems: All systems reviewed & are unremarkable except as noted in Subjective Physical Exam Constitutional: Physical Exam: Vitals signs as noted above General Appearance:Moderately built and nourished, confused Head: normocephalic, Atraumatic Eyes: normal inspection, EOMI Neck: supple, Trachea midline Respiratory/Chest: Normal breath sounds, CTA, No accessory muscle use Cardiovascular: S1, S2, No murmur Abdomen/GI:Soft, Non tender, Bowel sounds present Extremities/Musculoskeletal:normal inspection, no edema, R hip surgical dressing Neurologic/Psych:AA, dementia, hearing impairment, grossly no focal neurological deficits Skin: normal color, warm Results & Data Results & Data ([facility]) Vital Signs (Past 12 Hours) Vital Signs Temp Pulse Resp BP Pulse Ox O2 Del Method O2 Del Method 02/09/22 15:00 Room Air 02/09/22 11:00 Room Air 02/09/22 11:00 Room Air 02/09/22 09:41 Room Air 02/09/22 07:00 Room Air 02/09/22 07:33 36.8 C 82 17 140/84 98 Room Air Laboratory Results Short CBC 02/09/22 Range/Units 05:45 WBC 9.10 (4.8-10.8) K/ul Hgb 7.8 L (14.0-18.0) g/dl Hct 23.3 L (40.1-51.0) % Plt Count 294 (130-400) K/uL BMP 02/09/22 05:45 Sodium 135 L Potassium 4.4 Chloride 101 Carbon Dioxide 30 BUN 38 H Creatinine 1.26 Glucose 109 H Calcium 8.2 L
[2022-02-09] MEDS: LATANOPROST 0.005% OP SOLN 2.5 ML BTL OPB SCH (21:22)
[2022-02-09] MEDS: MELATONIN 3 MG TAB PO SCH ×2 (21:23→23:07)
--- NOTE | 2022-02-09 22:04 | Communication Note ---
Date of Service: February 09, 2022 Made aware by RN of patient inability to chew Seroquel XR preparation. Utilize Seroquel regular release (chewable as per RN), 50 mg in a.m., 100 mg in p.m. as per Psychiatry recommendations. Will relay to AM provider.
[2022-02-09] MEDS: QUEtiapine FUMARATE 100 MG TABLET PO SCH (23:07)
[2022-02-10] MEDS: ACETAMINOPHEN 325 MG TAB PO SCH ×3 (06:18→20:49)
[2022-02-10] MEDS: QUEtiapine FUMARATE 25 MG TABLET PO SCH (08:45)
[2022-02-10] MEDS: FERROUS SULFATE 325 MG TAB PO SCH (08:46)
[2022-02-10] MEDS: PANTOprazole 40 MG TAB PO SCH (08:46)
[2022-02-10] MEDS: amLODIPine BESYLATE 5 MG TAB PO SCH (08:46)
[2022-02-10] MEDS: TAMSULOSIN HCL 0.4 MG CAP PO SCH (08:46)
[2022-02-10] MEDS: UMECLIDINIUM/VILANTEROL 62.5/25MCG 7 PUFFS/INHALER INH SCH (08:47)
--- NOTE | 2022-02-10 12:26 | Psychiatric Progress Note ---
Date of Service February 10, 2022 Impression / Recommendations Impression Diagnostically consistent with encephalopathy/delirium superimposed on dementia with behavioral disturbance. Goal in dementia is to avoid medication management of behaviors if possible by maximizing non-pharmacologic strategies for behavioral management and limited data on efficacy of antipsychotics for delirium. However, given worsening agitation/aggression risk/benefit profile favors titration of Seroquel. Note all antipsychotic medications carry black box warning for increased risk of all-cause mortality in setting of dementia. 02/10/22: Some lessening of hyperactive delirium today, responding well so far to higher dose of seroquel 100mg qhs last night. (1) Encephalopathy acute: (2) Dementia with behavioral disturbance: Plan 02/10/22: Continue with seroquel 50mg qAM & 100mg qhs. Could use additional seroquel 12.5mg BID prn po as needed for breakthrough hyperactivity/agitation. Continue with melatonin as ordered. 02/08/22 -1-on-1 at discretion of hospitalist given level of agitation -Consider increasing seroquel XR from 50mg BID to 50mg qAM and 100mg qhs (can be seroquel regular relase or seroquel XR) with additional 12.5 mg BID prn for behavioral management as needed; would monitor Na+ as Seroquel can contribute to hyponatremia -If behaviors worsen or hypersexuality intensifies could consider addition of depakote trial for behavorial management -Consider melatonin 3mg qhs -Continue medical workup to rule out and treat any underlying causes contributing to potential delirium, avoid or limit use of deliriogenic medications (benzodiazepines, opioids, anticholinergics) -Continue with delirium prevention measures: raising blinds during the day, closing at night, contact with family/friends, explaining procedures/nursing care measures prior to physical contact, correct any hearing and visual impairments (if he has hearing aids ideally this could be brought in) -For behavioral emergency: olanzapine 2.5 mg IM x 1 (DO NOT exceed 10mg per 24 hours, check EKG if IM dose required, NEVER co-administer with IM or IV benzodiazepines). Interval History Identifying Information 81 yo man with history of dementia who lives at [facility] was admitted medically following surgery for hip replacement. Psychiatry consulted for medication recommendations for agitation. Chief Complaint "I don't want to make any trouble". Review of Systems Notes eating, slept some last night Subjective Subjective Patient was seen & assessed and interval progress reviewed. In soft restraints after repeated attempts yesterday to dive out of bed per RN and non-responsive to attempts to engage with safe behaviors/repositioning. Yesterdy per RN and 1-on-1 he was very disorganized, hyperactive, and making crude comments. Today some improvement, still making rude remarks at times but less agitated. No visible side effects from higher dose of seroquel last night. Cannot engage in any type of linear conversation. Procedures Performed Operation Date: 02/02/22 08:10 Actual Procedures p Right Trochanteric Nail (Right) - Spenser Webb, DO Physical Exam Psychiatric Orientation: alert and oriented to person; + not oriented to place and + not oriented to time Apperance: + disheveled Eye Contact: + fair eye contact Motor Behavior: no abnormal motor movements; n EPS Speech: normal rate/rhythm/volume of speech Affect: + labile affect Mood: + irritable mood Thought Process: + looseness of associations Thought Content: + preoccupation Suicidal Thoughts: denies suicidal thoughts Homicidal Thoughts: denies homicidal thoughts Hallucinations: no auditory hallucinations and no visual hallucinations Cognition: language grossly intact; + recent memory not intact and + attention not intact Insight: + severely impaired insight Judgement: + severely impaired judgement Vital Signs (Past 24 Hours) Last Vital Signs Temp 36.8 C 02/10/22 07:04 Pulse 71 02/10/22 07:16 Resp 14 02/10/22 07:04 BP 126/47 L 02/10/22 08:34 Pulse Ox 93 02/10/22 08:34 O2 Del Method 02/10/22 10:34 O2 Flow Rate 2 02/10/22 10:34 Results & Data ([facility]) Laboratory Results Laboratory Results - last 24 hr 02/09/22 23:08 Nasal Screen MRSA (PCR) Negative Current Inpatient Medications Current Inpatient Medications: Current Inpatient Medications Acetaminophen (Acetaminophen 325 Mg Tab) 650 mg PO Q8 SHEILA Stop: 03/10/22 13:59 Last Admin: 02/10/22 06:18 Dose: 650 mg Amlodipine Besylate (Amlodipine Besylate 5 Mg Tab) 2.5 mg PO QAM SHEILA Stop: 03/05/22 08:59 Last Admin: 02/10/22 08:46 Dose: 2.5 mg Bisacodyl (Bisacodyl 10 Mg Supp) 10 mg MO DAILY PRN PRN Reason: Constipation Stop: 03/04/22 03:05 Enoxaparin Sodium (Enoxaparin Inj 40 Mg/0.4 Ml Syr) 40 mg SQ Q24H SHEILA Stop: 03/05/22 14:59 Last Admin: 02/09/22 15:30 Dose: 40 mg Ferrous Sulfate (Ferrous Sulfate 325 Mg Tab) 325 mg PO DAILY SHEILA Stop: 03/04/22 08:59 Last Admin: 02/10/22 08:46 Dose: 325 mg Haloperidol Lactate (Haloperidol Lactate 5 Mg/Ml 1 Ml Vial) 2.5 mg IM Q2H PRN PRN Reason: Agitation Stop: 03/04/22 03:05 Last Admin: 02/09/22 08:27 Dose: 2.5 mg Promethazine HCl 6.25 mg/ (Sodium Chloride) 50.25 mls @ 201 mls/hr IV Q6H PRN PRN Reason: Nausea And Vomiting Stop: 03/04/22 01:44 Ipratropium [place] (Ipratropium [place] Neb Soln 0.02% 2.5 Ml Vial) 0.5 mg INH Q4H PRN PRN Reason: Shortness Of Breath Or Wheezing Stop: 03/04/22 02:14 Latanoprost (Latanoprost 0.005% Op Soln 2.5 Ml Btl) 1 drops OPB PM SHEILA Stop: 03/04/22 20:59 Last Admin: 02/09/22 21:22 Dose: 1 drops Levalbuterol HCl (Levalbuterol 1.25mg/0.5ml Neb) 1.25 mg INH Q4H PRN PRN Reason: Shortness Of Breath Or Wheezing Stop: 03/04/22 02:14 Magnesium Hydroxide (Magnesium Hydroxide Susp 30 Ml Udc) 30 ml PO DAILY PRN PRN Reason: Constipation Stop: 03/07/22 09:29 Melatonin (Melatonin 3 Mg Tab) 3 mg PO HS SHEILA Stop: 03/11/22 20:59 Last Admin: 02/09/22 23:07 Dose: 3 mg Naloxone HCl (Naloxone Hcl 0.4 Mg/1 Ml Vial/Carp) 0.1 mg IV UD PRN PRN Reason: Opiate Overdose Stop: 03/04/22 03:05 Olanzapine (Olanzapine 10 Mg/2.1 Ml Sdv) 2.5 mg IM DAILY PRN PRN Reason: Agitation Stop: 03/11/22 14:29 Oxycodone HCl (Oxycodone Hcl Ir 5 Mg Tab (Immediate Release)) 5 mg PO Q4H PRN PRN Reason: Pain Stop: 02/16/22 01:44 Last Admin: 02/09/22 08:27 Dose: 5 mg Pantoprazole Sodium (Pantoprazole 40 Mg Tab) 40 mg PO DAILY SHEILA Stop: 03/04/22 08:59 Last Admin: 02/10/22 08:46 Dose: 40 mg Polyethylene Glycol (Polyethylene (Miralax) 17 Gm Pack) 17 gm PO DAILY PRN PRN Reason: Constipation Stop: 03/06/22 10:44 Quetiapine Fumarate (Quetiapine Fumarate 25 Mg Tablet) 12.5 mg PO BID PRN PRN Reason: Agitation Stop: 03/11/22 20:59 Quetiapine Fumarate (Quetiapine Fumarate 100 Mg Tablet) 100 mg PO HS [facility] Stop: 03/11/22 22:24 Last Admin: 02/09/22 23:07 Dose: 100 mg Quetiapine Fumarate (Quetiapine Fumarate 25 Mg Tablet) 50 mg PO DAILY SHEILA Stop: 03/12/22 08:59 Last Admin: 02/10/22 08:45 Dose: 50 mg Tamsulosin HCl (Tamsulosin Hcl 0.4 Mg Cap) 0.4 mg PO DAILY SHEILA Stop: 03/04/22 08:59 Last Admin: 02/10/22 08:46 Dose: 0.4 mg Umeclidinium/Vilanterol (Umeclidinium/Vilanterol 62.5/25mcg 7 Puffs/Inhaler) 1 puffs INH DAILY SHEILA Stop: 03/04/22 08:59 Last Admin: 02/10/22 08:47 Dose: Not Given
--- NOTE | 2022-02-10 13:17 | Hospitalist Progress Note ---
Date of Service February 10, 2022 Assessment & Plan (1) Hip fracture, intertrochanteric: Plan: Patient is a 81 yr male with H/O CVA, COPD, hypertension, dementia presented from skilled nursing after a fall. He was found to have acute impacted right intertrochanteric fracture in outpatient pelvic x-ray. Patient is sent to the ED for evaluation. He was admitted to the telemetry floor; patient underwent right trochanteric nailing by orthopedic on 02/02. Mechanical fall Right intertrochanteric fracture status post nailing on 02/02 Postoperative blood loss anemia Toe-touch weightbearing Patient orthopedics input Continue wound care Continue p.o. daily needs follow-up with orthopedics upon discharge Monitor CBC Bowel regimen to prevent constipation SNF as able Dementia with behavioral problem Acute metabolic encephalopathy/delirium in setting of dementia with behavioral disturbance Seroquel dose increased to 50 mg every morning, 100 mg nightly Added melatonin 3 mg at bedtime Appreciate psychiatry input Continue current medications Urinary retention S/P Villarreal placement -Failed trial of void twice since the surgery. -Villarreal placed again on 02/07. Continue Villarreal for now Continue tamsulosin Hypertension Continue amlodipine DVT Px: Lovenox SQ Code Status Full code Disposition [facility] dementia unit as able Admission and Anticipated Discharge Date Admission Date: February 02, 2022 Subjective Patient is seen and examined at bedside Less agitated today Ate about 50% of breakfast as per Staff Sleeps most of the day Discussed with psychiatrist today Sitter at bedside Review of Systems Review of Systems: Unobtainable due to cognitive status Physical Exam Physical Exam: Physical Exam: Vitals signs as noted above General Appearance:Moderately built and nourished, confused Head: normocephalic, Atraumatic Eyes: normal inspection, EOMI Neck: supple, Trachea midline Respiratory/Chest: Normal breath sounds, CTA, No accessory muscle use Cardiovascular: S1, S2, No murmur Abdomen/GI:Soft, Non tender, Bowel sounds present Extremities/Musculoskeletal:normal inspection, no edema, R hip surgical dressing Neurologic/Psych:AA, dementia, hearing impairment, grossly no focal neurological deficits Skin: normal color, warm Results & Data Results & Data ([facility]) Vital Signs (Past 12 Hours) Vital Signs Temp Pulse Resp BP BP Pulse Ox Pulse Ox 02/10/22 10:34 02/10/22 10:23 02/10/22 08:34 126/47 L 93 11/03/22 07:06 93 02/10/22 07:04 88 L 02/10/22 07:16 71 97/51 L 02/10/22 07:06 93 02/10/22 07:04 36.8 C 71 14 98/55 L 88 L O2 Del Method O2 Del Method O2 Flow Rate O2 Flow Rate 02/10/22 10:34 Nasal Cannula 2 02/10/22 10:23 Nasal Cannula 2 02/10/22 08:34 Nasal Cannula 02/10/22 07:06 Nasal Cannula 2 02/10/22 07:04 Room Air 02/10/22 07:16 02/10/22 07:06 Nasal Cannula 2 02/10/22 07:04 Room Air
[2022-02-10] MEDS: ENOXAPARIN INJ 40 MG/0.4 ML SYR SQ SCH (15:31)
[2022-02-10] MEDS: LATANOPROST 0.005% OP SOLN 2.5 ML BTL OPB SCH (20:48)
[2022-02-10] MEDS: QUEtiapine FUMARATE 100 MG TABLET PO SCH (20:48)
[2022-02-10] MEDS: MELATONIN 3 MG TAB PO SCH (20:48)
[2022-02-10] MEDS: oxyCODONE HCL IR 5 MG TAB (IMMEDIATE RELEASE) PO PRN (21:03)
[2022-02-11] MEDS: ACETAMINOPHEN 325 MG TAB PO SCH ×3 (05:41→21:36)
[2022-02-11 07:59] LABS: BUN Creatinine Ratio 34.9 (10-20); Calcium 7.7 mg/dl (8.5-10.1); Creatinine Clr Calc Pharmacy 51.7 ml/min; Est GFR (Non-African American) 66.4 ml/min; Potassium 4.1 mmol/L (3.5-5.1)
[2022-02-11] MEDS ORDERED: SODIUM CHLORIDE 0.9% 250 ML IV PRN (09:23)
[2022-02-11] MEDS: amLODIPine BESYLATE 5 MG TAB PO SCH (09:27)
[2022-02-11] MEDS: TAMSULOSIN HCL 0.4 MG CAP PO SCH (09:27)
[2022-02-11] MEDS: FERROUS SULFATE 325 MG TAB PO SCH (09:28)
[2022-02-11] MEDS: QUEtiapine FUMARATE 25 MG TABLET PO SCH (09:28)
[2022-02-11] MEDS: PANTOprazole 40 MG TAB PO SCH (09:28)
[2022-02-11] MEDS: UMECLIDINIUM/VILANTEROL 62.5/25MCG 7 PUFFS/INHALER INH SCH (09:28)
--- NOTE | 2022-02-11 15:16 | Hospitalist Progress Note ---
Date of Service February 11, 2022 Assessment & Plan (1) Hip fracture, intertrochanteric: Plan: Patient is a 81 yr male with H/O CVA, COPD, hypertension, dementia presented from assisted after a fall. He was found to have acute impacted right intertrochanteric fracture in outpatient pelvic x-ray. Patient is sent to the ED for evaluation. He was admitted to the telemetry floor; patient underwent right trochanteric nailing by orthopedic on 02/02. Mechanical fall Right intertrochanteric fracture status post nailing on 02/02 Postoperative blood loss anemia Toe-touch weightbearing Patient orthopedics input Continue wound care Continue p.o. daily needs follow-up with orthopedics upon discharge Monitor CBC Bowel regimen to prevent constipation SNF as able Hb 7.o today Transfuse 1 unit PRBCs Dementia with behavioral problem Acute metabolic encephalopathy/delirium in setting of dementia with behavioral disturbance Seroquel dose increased to 50 mg every morning, 100 mg nightly Added melatonin 3 mg at bedtime Appreciate psychiatry input More cooperative today Urinary retention S/P Villarreal placement -Failed trial of void twice since the surgery. -Villarreal placed again on 02/07. Continue Villarreal for now Continue tamsulosin Hypertension Continue amlodipine DVT Px: Lovenox SQ Code Status Full code Disposition SNF as able Admission and Anticipated Discharge Date Admission Date: February 02, 2022 Subjective Patient is seen and examined at bedside Oriented to person and more cooperative today Poor historian secondary to cognitive issues No distress on exam Review of Systems Review of Systems: Unobtainable due to cognitive status Physical Exam Physical Exam: Physical Exam: Vitals signs as noted above General Appearance:Moderately built and nourished, confused Head: normocephalic, Atraumatic Eyes: normal inspection, EOMI Neck: supple, Trachea midline Respiratory/Chest: Normal breath sounds, CTA, No accessory muscle use Cardiovascular: S1, S2, No murmur Abdomen/GI:Soft, Non tender, Bowel sounds present Extremities/Musculoskeletal:normal inspection, no edema, R hip surgical dressing Neurologic/Psych:AA, dementia, hearing impairment, grossly no focal neurological deficits Skin: normal color, warm Results & Data Results & Data ([facility]) Vital Signs (Past 12 Hours) Vital Signs Temp Pulse Pulse Resp BP BP BP 02/11/22 15:11 36.2 C L 83 20 117/59 L 02/11/22 14:50 37.1 C 77 20 106/44 L 02/11/22 14:12 36.4 C L 71 20 121/63 02/11/22 13:12 36.8 C 89 20 149/59 H 02/11/22 12:12 37.0 C 87 20 149/60 H 02/11/22 11:42 36.6 C 75 19 134/63 02/11/22 14:16 36.4 C L 77 20 121/63 02/11/22 13:59 02/11/22 13:39 37.1 C 78 20 106/44 L 02/11/22 13:15 36.8 C 86 20 149/59 H 02/11/22 12:15 37.0 C 87 20 149/62 H 02/11/22 11:47 36.6 C 75 20 134/63 02/11/22 11:27 36.5 C 74 20 136/62 02/11/22 11:10 36.7 C 82 20 119/72 02/11/22 07:49 36.8 C 67 18 BP Pulse Ox O2 Del Method O2 Flow Rate 02/11/22 15:11 93 02/11/22 14:50 97 Nasal Cannula 2 02/11/22 14:12 98 02/11/22 13:12 20 L 2 02/11/22 12:12 10 L 2 02/11/22 11:42 98 2 02/11/22 14:16 10 L Room Air 02/11/22 13:59 Room Air 02/11/22 13:39 97 Room Air 02/11/22 13:15 98 Room Air 02/11/22 12:15 100 Room Air 02/11/22 11:47 100 Room Air 02/11/22 11:27 97 2 02/11/22 11:10 97 2 02/11/22 07:49 126/59 L 98 Nasal Cannula 2 Laboratory Results Short CBC 02/11/22 Range/Units 07:20 Hgb 7.0 L (14.0-18.0) g/dl Hct 21.0 L (40.1-51.0) % BMP 02/11/22 07:20 Sodium 135 L Potassium 4.1 Chloride 102 Carbon Dioxide 29 BUN 37 H Creatinine 1.06 Glucose 125 H Calcium 7.7 L
[2022-02-11 15:48] LABS: Hematocrit (blood only) 25.4 % (40.1-51.0); Hemoglobin 8.4 g/dl (14.0-18.0); Mean Corpuscular Hemoglobin 31.5 pg (25.0-34.0); Mean Corpuscular Hgb Conc 33.1 g/dL (32.0-36.0); Mean Corpuscular Volume 95.1 fL (80.0-100.0); Mean Platelet Volume 9.1 fL (9.4-12.4); Platelet Count 335 K/uL (130-400); RDW Coefficient of Variation 14.8 % (11.5-14.5); Red Blood Count 2.67 M/uL (4.63-6.08); White Blood Count 12.16 K/ul (4.8-10.8)
[2022-02-11] MEDS: MELATONIN 3 MG TAB PO SCH (21:40)
[2022-02-11] MEDS: QUEtiapine FUMARATE 100 MG TABLET PO SCH (21:41)
[2022-02-11] MEDS: LATANOPROST 0.005% OP SOLN 2.5 ML BTL OPB SCH (21:43)
[2022-02-12] MEDS: ACETAMINOPHEN 325 MG TAB PO SCH ×3 (06:10→21:11)
[2022-02-12] MEDS: UMECLIDINIUM/VILANTEROL 62.5/25MCG 7 PUFFS/INHALER INH SCH (07:26)
[2022-02-12] MEDS: PANTOprazole 40 MG TAB PO SCH (07:27)
[2022-02-12] MEDS: QUEtiapine FUMARATE 25 MG TABLET PO SCH (07:27)
[2022-02-12] MEDS: FERROUS SULFATE 325 MG TAB PO SCH (07:27)
[2022-02-12] MEDS: amLODIPine BESYLATE 5 MG TAB PO SCH (07:31)
[2022-02-12] MEDS: oxyCODONE HCL IR 5 MG TAB (IMMEDIATE RELEASE) PO PRN ×2 (07:34→16:41)
[2022-02-12 07:44] LABS: Hematocrit (blood only) 24.5 % (40.1-51.0); Hemoglobin 8.3 g/dl (14.0-18.0)
[2022-02-12] MEDS: TAMSULOSIN HCL 0.4 MG CAP PO SCH (09:23)
--- NOTE | 2022-02-12 14:09 | Hospitalist Progress Note ---
Date of Service February 12, 2022 Assessment & Plan (1) Hip fracture, intertrochanteric: Plan: Patient is a 81 yr male with H/O CVA, COPD, hypertension, dementia presented from [facility] after a fall. He was found to have acute impacted right intertrochanteric fracture in outpatient pelvic x-ray. Patient is sent to the ED for evaluation. He was admitted to the telemetry floor; patient underwent right trochanteric nailing by orthopedic on 02/02. Mechanical fall Right intertrochanteric fracture status post nailing on 02/02 Postoperative blood loss anemia S/P PRBCs Toe-touch weightbearing Patient orthopedics input Continue wound care Continue p.o. daily needs follow-up with orthopedics upon discharge Monitor CBC Bowel regimen to prevent constipation SNF as able Hb 8.3 today Dementia with behavioral problem Acute metabolic encephalopathy/delirium in setting of dementia with behavioral disturbance Seroquel dose increased to 50 mg every morning, 100 mg nightly Added melatonin 3 mg at bedtime Appreciate psychiatry input Urinary retention S/P Villarreal placement -Failed trial of void twice since the surgery. -Villarreal placed again on 02/07. Continue Villarreal for now Continue tamsulosin Hypertension Continue amlodipine DVT Px: Lovenox SQ-held Resume as able Code Status Full code Disposition SNF as able Admission and Anticipated Discharge Date Admission Date: February 02, 2022 Subjective Patient is seen and examined at bedside Reports right leg discomfort to Staff No agitation during my encounter Sitter at bedside Poor historian secondary to cognitive issues, hearing impairment Review of Systems Review of Systems: Unobtainable due to cognitive status Physical Exam Physical Exam: Physical Exam: Vitals signs as noted above General Appearance:Moderately built and nourished, confused Head: normocephalic, Atraumatic Eyes: normal inspection, EOMI Neck: supple, Trachea midline Respiratory/Chest: Normal breath sounds, CTA, No accessory muscle use Cardiovascular: S1, S2, No murmur Abdomen/GI:Soft, Non tender, Bowel sounds present Extremities/Musculoskeletal:normal inspection, no edema, R hip surgical dressing Neurologic/Psych:AA, dementia, hearing impairment, grossly no focal neurological deficits Skin: normal color, warm Results & Data Results & Data ([facility]) Vital Signs (Past 12 Hours) Vital Signs Temp Pulse Resp BP Pulse Ox O2 Flow Rate 02/12/22 07:39 36.8 C 66 15 115/49 L 96 1.5 Laboratory Results Short CBC 02/11/22 02/12/22 Range/Units 15:20 06:29 WBC 12.16 H (4.8-10.8) K/ul Hgb 8.4 L 8.3 L (14.0-18.0) g/dl Hct 25.4 L 24.5 L (40.1-51.0) % Plt Count 335 (130-400) K/uL
[2022-02-12] MEDS: MELATONIN 3 MG TAB PO SCH (20:52)
[2022-02-12] MEDS: LATANOPROST 0.005% OP SOLN 2.5 ML BTL OPB SCH (20:52)
[2022-02-12] MEDS: QUEtiapine FUMARATE 100 MG TABLET PO SCH (20:53)
[2022-02-13] MEDS: ACETAMINOPHEN 325 MG TAB PO SCH ×3 (05:40→21:00)
[2022-02-13 08:23] LABS: Hematocrit (blood only) 24.6 % (40.1-51.0); Hemoglobin 8.2 g/dl (14.0-18.0)
[2022-02-13 08:45] LABS: BUN Creatinine Ratio 33.7 (10-20); Calcium 8.1 mg/dl (8.5-10.1); Creatinine Clr Calc Pharmacy 55.6 ml/min; Est GFR (African American) 81.6 ml/min; Est GFR (Non-African American) 70.4 ml/min; Potassium 4.4 mmol/L (3.5-5.1)
[2022-02-13] MEDS: amLODIPine BESYLATE 5 MG TAB PO SCH (09:33)
[2022-02-13] MEDS: QUEtiapine FUMARATE 25 MG TABLET PO SCH (09:34)
[2022-02-13] MEDS: FERROUS SULFATE 325 MG TAB PO SCH (09:34)
[2022-02-13] MEDS: UMECLIDINIUM/VILANTEROL 62.5/25MCG 7 PUFFS/INHALER INH SCH (09:35)
[2022-02-13] MEDS: PANTOprazole 40 MG TAB PO SCH (09:35)
[2022-02-13] MEDS: TAMSULOSIN HCL 0.4 MG CAP PO SCH (10:26)
--- NOTE | 2022-02-13 13:54 | Hospitalist Progress Note ---
Date of Service February 13, 2022 Assessment & Plan (1) Hip fracture, intertrochanteric: Plan: Patient is a 81 yr male with H/O CVA, COPD, hypertension, dementia presented from senior living after a fall. He was found to have acute impacted right intertrochanteric fracture in outpatient pelvic x-ray. Patient is sent to the ED for evaluation. He was admitted to the telemetry floor; patient underwent right trochanteric nailing by orthopedic on 02/02. Mechanical fall Right intertrochanteric fracture status post nailing on 02/02 Postoperative blood loss anemia S/P PRBCs Toe-touch weightbearing Patient orthopedics input Continue wound care Continue p.o. daily needs follow-up with orthopedics upon discharge Monitor CBC Bowel regimen to prevent constipation SNF as able Hb 8.2 today Waiting for placement Dementia with behavioral problem Acute metabolic encephalopathy/delirium in setting of dementia with behavioral disturbance Seroquel dose increased to 50 mg every morning, 100 mg nightly Added melatonin 3 mg at bedtime Appreciate psychiatry input Urinary retention S/P Villarreal placement -Failed trial of void twice since the surgery. -Villarreal placed again on 02/07. Continue Villarreal for now Continue tamsulosin Hypertension Continue amlodipine DVT Px: Lovenox SQ-held Resume as able Code Status Full code Disposition SNF as able Admission and Anticipated Discharge Date Admission Date: February 02, 2022 Subjective Patient is seen and examined at bedside Offers no complaints Pleasantly confused Sitter at bedside Poor historian secondary to cognitive issues, hearing impairment Denies chest pain, dyspnea Review of Systems Review of Systems: Unobtainable due to cognitive status Physical Exam Physical Exam: Physical Exam: Vitals signs as noted above General Appearance:Moderately built and nourished, confused Head: normocephalic, Atraumatic Eyes: normal inspection, EOMI Neck: supple, Trachea midline Respiratory/Chest: Normal breath sounds, CTA, No accessory muscle use Cardiovascular: S1, S2, No murmur Abdomen/GI:Soft, Non tender, Bowel sounds present Extremities/Musculoskeletal:normal inspection, no edema, R hip surgical dressing Neurologic/Psych:AA, dementia, hearing impairment, grossly no focal neurological deficits Skin: normal color, warm Results & Data Results & Data ([facility]) Vital Signs (Past 12 Hours) Vital Signs Temp Pulse Resp BP BP Pulse Ox O2 Del Method 02/13/22 11:25 37.0 C 76 18 112/64 95 Nasal Cannula 02/13/22 06:00 36.6 C 66 18 113/46 L 94 Nasal Cannula O2 Flow Rate 02/13/22 11:25 2 02/13/22 06:00 2 Laboratory Results Short CBC 02/13/22 Range/Units 07:58 Hgb 8.2 L (14.0-18.0) g/dl Hct 24.6 L (40.1-51.0) % BMP 02/13/22 07:58 Sodium 137 Potassium 4.4 Chloride 104 Carbon Dioxide 31 BUN 34 H Creatinine 1.01 Glucose 101 H Calcium 8.1 L
[2022-02-13] MEDS: cefTRIAXone SODIUM 1,000 MG in DEXTROSE 5% 50 ML IV SCH (15:00)
[2022-02-13] MEDS: DOXYCYCLINE HYCLATE 100 MG CAP PO SCH ×2 (15:49→21:00)
[2022-02-13] MEDS: SODIUM CHLORIDE 0.9% 1000ML 1,000 ML IV SCH (19:30)
[2022-02-13] MEDS: LATANOPROST 0.005% OP SOLN 2.5 ML BTL OPB SCH (21:00)
[2022-02-13] MEDS: MELATONIN 3 MG TAB PO SCH (21:00)
[2022-02-13] MEDS: QUEtiapine FUMARATE 100 MG TABLET PO SCH (21:00)
[2022-02-13] MEDS: QUEtiapine FUMARATE 25 MG TABLET PO PRN ×2 (22:22→22:27)
[2022-02-14] MEDS: SODIUM CHLORIDE 0.9% 1000ML 1,000 ML IV SCH ×2 (05:08→14:51)
[2022-02-14] MEDS: ACETAMINOPHEN 325 MG TAB PO SCH ×3 (05:59→20:15)
[2022-02-14] MEDS: amLODIPine BESYLATE 5 MG TAB PO SCH (07:59)
[2022-02-14] MEDS: TAMSULOSIN HCL 0.4 MG CAP PO SCH (07:59)
[2022-02-14] MEDS: FERROUS SULFATE 325 MG TAB PO SCH (08:00)
[2022-02-14] MEDS: PANTOprazole 40 MG TAB PO SCH (08:00)
[2022-02-14] MEDS: UMECLIDINIUM/VILANTEROL 62.5/25MCG 7 PUFFS/INHALER INH SCH (08:01)
[2022-02-14] MEDS: QUEtiapine FUMARATE 25 MG TABLET PO SCH (08:31)
[2022-02-14] MEDS: oxyCODONE HCL IR 5 MG TAB (IMMEDIATE RELEASE) PO PRN (08:31)
[2022-02-14] MEDS: cefTRIAXone SODIUM 1,000 MG in DEXTROSE 5% 50 ML IV SCH (12:51)
[2022-02-14] MEDS: DOXYCYCLINE HYCLATE 100 MG CAP PO SCH ×2 (12:52→20:18)
--- NOTE | 2022-02-14 14:11 | Surgery Consultation ---
Date of Consultation February 14, 2022 Assessment & Plan (1) Carbuncle and furuncle of trunk: Will plan for debridement at bedside. Supervising Physician Co-Signing Physician Notes Patient seen and examined, agree with above. 81-year-old male admitted inpatient for trochanteric nail, now with infected cyst of his right upper back. Per the daughter this is been present since she was a child. On exam he is afebrile with stable vitals. Somewhat chronic appearing infected cyst with some surrounding cellulitis. Purulent drainage was expressed. I discussed with the patient as well as with the daughter over the phone that we would recommend an incision and drainage. This was performed at the bedside, see procedure note for details. Dressing can be removed tomorrow Wet-to-dry dressing changes twice daily Continue antibiotics Prior to procedure the risks were discussed with the daughter to include but not limited bleeding, infection, recurrence, prolonged wound healing, need for future more extensive surgery History of Present Illness Attending Physician: Jacob Lizama MD History of Present Illness 81 y/o male s/p right trochanteric nail now with right shoulder abscess. Has 1:1 nursing aid, has some hearing loss. Uncertain how long this has been present but is "sore." Allergies Allergy/AdvReac Type Severity Reaction Status Date / Time fluticasone Allergy Unknown ON MED LIST Verified 02/01/22 23:57 [From Advair Diskus] salmeterol Allergy Unknown ON MED LIST Verified 02/01/22 23:57 [From Advair Diskus] Home Medications Medication Instructions Recorded Confirmed Type acetaminophen 325 mg tablet 650 mg PO Q6H PRN FEVER/PAIN 02/01/22 02/02/22 History (Tylenol) albuterol sulfate 90 mcg/actuation 2 puff inhalation Q6H PRN Wheezing 02/01/22 02/02/22 History aerosol inhaler (Ventolin HFA) ascorbic acid (vitamin C) 500 mg 500 mg PO DAILY 02/01/22 02/02/22 History tablet (Vitamin C) ferrous sulfate 325 mg (65 mg 325 mg PO DAILY 02/01/22 02/02/22 History iron) tablet haloperidol lactate 2 mg/mL oral 2 mg PO Q8H PRN Agitation 02/01/22 02/02/22 History concentrate latanoprost 0.005 % eye drops 1 drp OPB PM 02/01/22 02/02/22 History omeprazole 20 mg capsule,delayed 20 mg PO DAILY 02/01/22 02/02/22 History release quetiapine 50 mg tablet,extended 50 mg PO BID 02/01/22 02/02/22 History release 24 hr (Seroquel XR) tadalafil 5 mg tablet 5 mg PO HS 02/01/22 02/02/22 History tamsulosin 0.4 mg capsule (Flomax) 0.4 mg PO DAILY 02/01/22 02/02/22 History umeclidinium 62.5 mcg-vilanterol 1 inh inhalation DAILY 02/01/22 02/02/22 History 25 mcg/actuation powdr for inhalation (Anoro Ellipta) Patient History Medical History Anemia Chronic anemia COPD (chronic obstructive pulmonary disease) CVA (cerebral vascular accident) Dementia Pulmonary hypertension Surgical History No significant past surgical history Social History Smoking Status: Former smoker Tobacco Type: Cigarettes Hx Alcohol Use: No Hx Substance Use: No Preferred Language: Lebanese Communication Ability: Unable Communication Ability Comment: pt unable to communicate, have not spoke to Sarah Brokerage Coordinator Required: No Beliefs That Will Affect Care: None Current Living Situation: Skilled Nursing Current Living Situation Comment: locked unit Assistive Devices: None Physical Exam Constitutional: WD/WN, vitals as above Skin: + wound (draining wound right scapular area, carbuncle) Results & Data ([facility]) Vital Signs (Past 12 Hours) Vital Signs Temp Pulse Resp BP BP Pulse Ox O2 Del Method 02/14/22 07:15 37.0 C 81 18 144/82 H 95 Nasal Cannula 02/14/22 04:14 36.6 C 71 18 135/68 97 Nasal Cannula O2 Flow Rate 02/14/22 07:15 2 02/14/22 04:14 2 PG Care Time/CCT Total # of Minutes Spent Total Time Spent with Patient: Total time spent is greater than 50% in coordination of care (as documented) at patient's floor/unit and/or counseling patient: Coding Level of Care Code 92606 Initial Inpt Care Lvl 1 Diagnoses Carbuncle and furuncle of trunk L02.239; L02.229
[2022-02-14] MEDS ORDERED: LIDOCAINE 1% LOCAL 20 ML VIAL ONE (14:23)
--- NOTE | 2022-02-14 15:34 | Procedure Note ---
Procedure Note Date of Service February 14, 2022 Note Verbal consent was obtained. Patient's back was prepped and draped in standard sterile fashion. Local anesthetic was injected. An elliptical incision was made to encompass the open areas of the cyst and deepened down to the subcutan eous tissue. This was opened and there was minimal fluid still present within the abscess cavity. Hemostasis achieved the wound was irrigated. Wound was packed with gauze. Patient tolerated the procedure without incident. Coding
--- NOTE | 2022-02-14 16:15 | Hospitalist Progress Note ---
Date of Service February 14, 2022 Assessment & Plan (1) Hip fracture, intertrochanteric: Plan: Patient is a 81 yr male with H/O CVA, COPD, hypertension, dementia presented from half[place]way after a fall. He was found to have acute impacted right intertrochanteric fracture in outpatient pelvic x-ray. Patient is sent to the ED for evaluation. He was admitted to the telemetry floor; patient underwent right trochanteric nailing by orthopedic on 02/02. Mechanical fall Right intertrochanteric fracture status post nailing on 02/02 Postoperative blood loss anemia S/P PRBCs Toe-touch weightbearing Patient orthopedics input Continue wound care Continue p.o. daily needs follow-up with orthopedics upon discharge Monitor CBC Bowel regimen to prevent constipation SNF as able Hb 8.2 Waiting for rehab placement Infected cyst/cellulitis of back-POA S/P debridement Blood Cx pending Appreciate surgery input Continue antibiotics Dementia with behavioral problem Acute metabolic encephalopathy/delirium in setting of dementia with behavioral disturbance Seroquel dose increased to 50 mg every morning, 100 mg nightly Added melatonin 3 mg at bedtime Appreciate psychiatry input Urinary retention S/P Villarreal placement -Failed trial of void twice since the surgery. -Villarreal placed again on 02/07. Continue Villarreal for now Continue tamsulosin Hypertension Continue amlodipine DVT Px: Lovenox SQ-held Resume as able Code Status Full code Disposition SNF as able Admission and Anticipated Discharge Date Admission Date: February 02, 2022 Subjective Patient is seen and examined at bedside Pleasantly confused Sitter at bedside Poor historian secondary to cognitive issues, hearing impairment Denies chest pain, dyspnea, abd pain Consulted surgery to eval infected cyst Review of Systems Review of Systems: Unobtainable due to cognitive status Physical Exam Physical Exam: Physical Exam: Vitals signs as noted above General Appearance:Moderately built and nourished, confused Head: normocephalic, Atraumatic Eyes: normal inspection, EOMI Neck: supple, Trachea midline Respiratory/Chest: Normal breath sounds, CTA, No accessory muscle use Cardiovascular: S1, S2, No murmur Abdomen/GI:Soft, Non tender, Bowel sounds present Extremities/Musculoskeletal:normal inspection, no edema, R hip surgical scar, Refused R shoulder/back exam Neurologic/Psych:AA, dementia, hearing impairment, grossly no focal neurological deficits Skin: normal color, warm Results & Data Results & Data ([facility]) Vital Signs (Past 12 Hours) Vital Signs Temp Pulse Resp BP BP Pulse Ox O2 Del Method 02/14/22 16:01 36.9 C 77 20 120/59 L 94 Room Air 02/14/22 07:15 37.0 C 81 18 144/82 H 95 Nasal Cannula 02/14/22 04:14 36.6 C 71 18 135/68 97 Nasal Cannula O2 Flow Rate 02/14/22 16:01 02/14/22 07:15 2 02/14/22 04:14 2
[2022-02-14 19:57] LABS: A calco-baum cmplx NotReported Not Detected (NotDetected); Bact fragilis Not Reported Not Detected (NotDetected); C auris Not Reported Not Detected (NotDetected); Calbicans Not Reported Not Detected (NotDetected); Candida glabrata Not Reported Not Detected (NotDetected); Candida krusei Not Reported Not Detected (NotDetected); Cneoformans/gatti Not Reported Not Detected (NotDetected); Cparapsilosis Not Reported Not Detected (NotDetected); Ctropicalis Not Reported Not Detected (NotDetected); E cloacae compx Not Reported Not Detected (NotDetected); Efaecalis Not Reported Not Detected (NotDetected); Efaecium Not Reported Not Detected (NotDetected); Enterobacterales Not Reported Not Detected (NotDetected); Escherichia coli Not Reported Not Detected (NotDetected); H influenzae Not Reported Not Detected (NotDetected); K aerogenes Not Reported Not Detected (NotDetected); Koxytoca Not Reported Not Detected (NotDetected); Kpneumoniae grp Not Reported Not Detected (NotDetected); Lmonocyt Not Reported Not Detected (NotDetected); N meningitidis Not Reported Not Detected (NotDetected); P aeruginosa Not Reported Not Detected (NotDetected); Proteus spp Not Reported Not Detected (NotDetected); Salmonella spp Not Reported Not Detected (NotDetected); Smarcescens Not Reported Not Detected (NotDetected); Staph lugdunensis Not Reported Not Detected (NotDetected); Staph spp. Not Reported DETECTED (NotDetected); Staphaureus Not Reported Not Detected (NotDetected); Staphepi Not Reported DETECTED (NotDetected); Staphylococcus spp. DETECTED (NotDetected); Stenmaltophilia Not Reported Not Detected (NotDetected); Strep agal(GrpB) Not Reported Not Detected (NotDetected); Strep pneum Not Reported Not Detected (NotDetected); Strep pyog (GrpA) Not Reported Not Detected (NotDetected); Strep spp Not Reported Not Detected (NotDetected); mecAC Resistant Gene Not Detected (NotDetected)
[2022-02-14] MEDS: QUEtiapine FUMARATE 100 MG TABLET PO SCH (20:13)
[2022-02-14] MEDS: LATANOPROST 0.005% OP SOLN 2.5 ML BTL OPB SCH (20:13)
[2022-02-14] MEDS: MELATONIN 3 MG TAB PO SCH (20:17)
[2022-02-14 20:46] LABS: Staphylococcus epidermidis DETECTED (NotDetected)
[2022-02-15] MEDS: oxyCODONE HCL IR 5 MG TAB (IMMEDIATE RELEASE) PO PRN (03:09)
[2022-02-15] MEDS: ACETAMINOPHEN 325 MG TAB PO SCH ×3 (06:11→21:37)
[2022-02-15 08:34] LABS: Hematocrit (blood only) 26.7 % (40.1-51.0); Hemoglobin 8.8 g/dl (14.0-18.0); Mean Corpuscular Hemoglobin 31.4 pg (25.0-34.0); Mean Corpuscular Volume 95.4 fL (80.0-100.0); Mean Platelet Volume 8.7 fL (9.4-12.4); Platelet Count 414 K/uL (130-400); RDW Coefficient of Variation 14.2 % (11.5-14.5); RDW Standard Deviation 49.9 fL (36.4-46.3); White Blood Count 6.35 K/ul (4.8-10.8)
[2022-02-15] MEDS: QUEtiapine FUMARATE 25 MG TABLET PO SCH (08:50)
[2022-02-15] MEDS: FERROUS SULFATE 325 MG TAB PO SCH (08:50)
[2022-02-15] MEDS: amLODIPine BESYLATE 5 MG TAB PO SCH (08:51)
[2022-02-15] MEDS: UMECLIDINIUM/VILANTEROL 62.5/25MCG 7 PUFFS/INHALER INH SCH (08:52)
[2022-02-15] MEDS: PANTOprazole 40 MG TAB PO SCH (08:52)
[2022-02-15] MEDS: TAMSULOSIN HCL 0.4 MG CAP PO SCH (08:52)
[2022-02-15 09:01] LABS: BUN Creatinine Ratio 27.3 (10-20); Calcium 8.2 mg/dl (8.5-10.1); Creatinine Clr Calc Pharmacy 66.5 ml/min; Est GFR (African American) 94.7 ml/min; Est GFR (Non-African American) 81.7 ml/min; Potassium 4.3 mmol/L (3.5-5.1)
[2022-02-15] MEDS: DOXYCYCLINE HYCLATE 100 MG CAP PO SCH ×2 (09:52→21:38)
--- NOTE | 2022-02-15 12:44 | Surgery Progress Note ---
Date of Service February 15, 2022 Assessment & Plan (1) Carbuncle and furuncle of trunk: Plan: daily dressing changes, wound care to see f/u prn Admission and Anticipated Discharge Date Admission Date: February 02, 2022 Supervising Physician Co-Signing Physician Notes Patient seen and examined, agree with above. Status post I&D of infected cyst on his right upper back yesterday at the bedside. No pain. Wound bed appears healthy, cellulitis slightly improved. No undrained pockets or bleeding. Wound care consult pending, surgery will follow peripherally, call with questions or concerns Subjective no complaints Physical Exam Skin: right scapular wound with some drainage Results & Data ([facility]) Vital Signs (Past 12 Hours) Vital Signs Temp Pulse Resp BP Pulse Ox O2 Del Method 02/15/22 07:26 Room Air 02/15/22 07:18 36.9 C 78 18 123/55 L 97 Room Air PG Care Time/CCT Total # of Minutes Spent Total Time Spent with Patient: Total time spent is greater than 50% in coordination of care (as documented) at patient's floor/unit and/or counseling patient: Coding Level of Care Code None Diagnoses Carbuncle and furuncle of trunk L02.239; L02.229
[2022-02-15] MEDS: cefTRIAXone SODIUM 1,000 MG in DEXTROSE 5% 50 ML IV SCH (14:57)
--- NOTE | 2022-02-15 16:09 | Hospitalist Progress Note ---
Date of Service February 15, 2022 Assessment & Plan (1) Hip fracture, intertrochanteric: Plan: Patient is a 81 yr male with H/O CVA, COPD, hypertension, dementia presented from long term after a fall. He was found to have acute impacted right intertrochanteric fracture in outpatient pelvic x-ray. Patient is sent to the ED for evaluation. He was admitted to the telemetry floor; patient underwent right trochanteric nailing by orthopedic on 02/02. Mechanical fall Right intertrochanteric fracture status post nailing on 02/02 Postoperative blood loss anemia S/P PRBCs Toe-touch weightbearing Appreciate Orthopedics input Continue wound care Needs follow-up with orthopedics upon discharge Monitor CBC Bowel regimen to prevent constipation SNF as able Hb 8.8 Waiting for rehab placement Infected cyst/cellulitis of back-POA S/P debridement Blood Cx: 04/13: Coagulase-negative staph not lugdunensis--Likely contaminant Repeat blood cultures pending Appreciate surgery input Continue antibiotics Continue wound care Dementia with behavioral problem Acute metabolic encephalopathy/delirium in setting of dementia with behavioral disturbance Seroquel dose increased to 50 mg every morning, 100 mg nightly Added melatonin 3 mg at bedtime Appreciate psychiatry input Urinary retention S/P Villarreal placement -Failed trial of void twice since the surgery. -Villarreal placed again on 02/07. Continue Villarreal for now Continue tamsulosin Hypertension Continue amlodipine DVT Px: Lovenox SQ-held Resume as able Code Status Full code Disposition SNF as able Admission and Anticipated Discharge Date Admission Date: February 02, 2022 Subjective Patient is seen and examined at bedside Offers no complaints Blood culture grew coagulase-negative staph likely contaminant Sitter at bedside Poor historian secondary to cognitive issues, hearing impairment Review of Systems Review of Systems: Unobtainable due to cognitive status Physical Exam Physical Exam: Physical Exam: Vitals signs as noted above General Appearance:Moderately built and nourished, confused Head: normocephalic, Atraumatic Eyes: normal inspection, EOMI Neck: supple, Trachea midline Respiratory/Chest: Normal breath sounds, CTA, No accessory muscle use Cardiovascular: S1, S2, No murmur Abdomen/GI:Soft, Non tender, Bowel sounds present Extremities/Musculoskeletal:normal inspection, no edema, R hip surgical scar, Refused R shoulder/back exam Neurologic/Psych:AA, dementia, hearing impairment, grossly no focal neurological deficits Skin: normal color, warm Results & Data Results & Data ([facility]) Vital Signs (Past 12 Hours) Vital Signs Temp Pulse Resp BP Pulse Ox O2 Del Method 02/15/22 15:04 36.8 C 91 H 20 123/60 94 Room Air 02/15/22 07:26 Room Air 02/15/22 07:18 36.9 C 78 18 123/55 L 97 Room Air Laboratory Results Short CBC 02/15/22 Range/Units 08:27 WBC 6.35 (4.8-10.8) K/ul Hgb 8.8 L (14.0-18.0) g/dl Hct 26.7 L (40.1-51.0) % Plt Count 414 H (130-400) K/uL BMP 02/15/22 08:27 Sodium 136 Potassium 4.3 Chloride 104 Carbon Dioxide 27 BUN 24 H Creatinine 0.88 Glucose 124 H Calcium 8.2 L
[2022-02-15] MEDS: MELATONIN 3 MG TAB PO SCH (21:37)
[2022-02-15] MEDS: QUEtiapine FUMARATE 100 MG TABLET PO SCH (21:37)
[2022-02-15] MEDS: LATANOPROST 0.005% OP SOLN 2.5 ML BTL OPB SCH (21:38)
[2022-02-16] MEDS: ACETAMINOPHEN 325 MG TAB PO SCH ×3 (06:06→21:32)
[2022-02-16] MEDS: TAMSULOSIN HCL 0.4 MG CAP PO SCH (08:25)
[2022-02-16] MEDS: QUEtiapine FUMARATE 25 MG TABLET PO SCH (08:26)
[2022-02-16] MEDS: PANTOprazole 40 MG TAB PO SCH (08:26)
[2022-02-16] MEDS: FERROUS SULFATE 325 MG TAB PO SCH (08:26)
[2022-02-16] MEDS: amLODIPine BESYLATE 5 MG TAB PO SCH (08:26)
[2022-02-16] MEDS: DOXYCYCLINE HYCLATE 100 MG CAP PO SCH ×2 (09:56→21:32)
[2022-02-16] MEDS: UMECLIDINIUM/VILANTEROL 62.5/25MCG 7 PUFFS/INHALER INH SCH (09:56)
[2022-02-16] MEDS: cefTRIAXone SODIUM 1,000 MG in DEXTROSE 5% 50 ML IV SCH (14:48)
--- NOTE | 2022-02-16 15:57 | Hospitalist Progress Note ---
Date of Service February 16, 2022 Assessment & Plan (1) Hip fracture, intertrochanteric: Plan: Patient is a 81 yr male with H/O CVA, COPD, hypertension, dementia [facility]. He was found to have acute impacted right intertrochanteric fracture in outpatient pelvic x-ray. Patient is sent to the ED for evaluation. He was admitted to the telemetry floor; patient underwent right trochanteric nailing by orthopedic on 02/02. Mechanical fall Right intertrochanteric fracture status post nailing on 02/02 Postoperative blood loss anemia S/P PRBCs Toe-touch weightbearing Appreciate Orthopedics input Continue wound care Needs follow-up with orthopedics upon discharge Monitor CBC Bowel regimen to prevent constipation SNF as able Hb 8.8 Waiting for rehab placement Infected cyst/cellulitis of back-POA S/P debridement Blood Cx: 04/13: Coagulase-negative staph not lugdunensis--Likely contaminant Repeat blood cultures negative to date Appreciate surgery input Continue antibiotics Continue wound care Transition to p.o. antibiotics tomorrow Dementia with behavioral problem Acute metabolic encephalopathy/delirium in setting of dementia with behavioral disturbance Seroquel dose increased to 50 mg every morning, 100 mg nightly Added melatonin 3 mg at bedtime Appreciate psychiatry input Urinary retention S/P Villarreal placement -Failed trial of void twice since the surgery. -Villarreal placed again on 02/07. Continue Villarreal for now Continue tamsulosin Hypertension Continue amlodipine DVT Px: Lovenox SQ Code Status Full code Disposition SNF when accepted Admission and Anticipated Discharge Date Admission Date: February 02, 2022 Subjective Patient is seen and examined at bedside Pleasantly confused Unable to provide any meaningful history given cognitive issues, hearing impairment Off one-on-one observation Review of Systems Review of Systems: All systems reviewed & are unremarkable except as noted in Subjective Physical Exam Physical Exam: Physical Exam: Vitals signs as noted above General Appearance:Moderately built and nourished, confused Head: normocephalic, Atraumatic Eyes: normal inspection, EOMI Neck: supple, Trachea midline Respiratory/Chest: Normal breath sounds, CTA, No accessory muscle use Cardiovascular: S1, S2, No murmur Abdomen/GI:Soft, Non tender, Bowel sounds present Extremities/Musculoskeletal:normal inspection, no edema, R hip surgical scar, Refused R shoulder/back exam Neurologic/Psych:AA, dementia, hearing impairment, grossly no focal neurological deficits Skin: normal color, warm Results & Data Results & Data ([facility]) Vital Signs (Past 12 Hours) Vital Signs Temp Pulse Resp BP BP Pulse Ox O2 Del Method 02/16/22 11:22 36.9 C 86 18 108/66 93 Room Air 02/16/22 07:15 37.0 C 82 18 143/67 H 95 Room Air
--- NOTE | 2022-02-16 18:27 | Communication Note ---
Date of Service: February 16, 2022 Patient is 2-week status post right trochanteric femoral nailing. Incisions are healing well without erythema or drainage. [place] can be removed and Steri- Strips applied. Continue therapy. Toe-touch weightbearing right lower extremity. Follow-up with Dr. Webb upon discharge.
[2022-02-16] MEDS: LATANOPROST 0.005% OP SOLN 2.5 ML BTL OPB SCH (20:09)
[2022-02-16] MEDS: QUEtiapine FUMARATE 100 MG TABLET PO SCH (20:10)
[2022-02-16] MEDS: MELATONIN 3 MG TAB PO SCH (20:10)
[2022-02-17] MEDS: ACETAMINOPHEN 325 MG TAB PO SCH ×3 (05:38→20:47)
[2022-02-17] MEDS: QUEtiapine FUMARATE 25 MG TABLET PO SCH (08:42)
[2022-02-17] MEDS: amLODIPine BESYLATE 5 MG TAB PO SCH (08:42)
[2022-02-17] MEDS: PANTOprazole 40 MG TAB PO SCH (08:42)
[2022-02-17] MEDS: TAMSULOSIN HCL 0.4 MG CAP PO SCH (08:42)
[2022-02-17] MEDS: FERROUS SULFATE 325 MG TAB PO SCH (08:42)
[2022-02-17] MEDS: UMECLIDINIUM/VILANTEROL 62.5/25MCG 7 PUFFS/INHALER INH SCH (08:43)
[2022-02-17] MEDS: DOXYCYCLINE HYCLATE 100 MG CAP PO SCH ×2 (10:33→20:47)
--- NOTE | 2022-02-17 12:49 | Hospitalist Progress Note ---
Date of Service February 17, 2022 Assessment & Plan (1) Hip fracture, intertrochanteric: Plan: Patient is a 81 yr male with H/O CVA, COPD, hypertension, dementia presented from longterm after a fall. He was found to have acute impacted right intertrochanteric fracture in outpatient pelvic x-ray. Patient is sent to the ED for evaluation. He was admitted to the telemetry floor; patient underwent right trochanteric nailing by orthopedic on 02/02. Mechanical fall Right intertrochanteric fracture status post nailing on 02/02 Postoperative blood loss anemia S/P PRBCs Toe-touch weightbearing Appreciate Orthopedics input Continue wound care Needs follow-up with orthopedics upon discharge Monitor CBC Bowel regimen to prevent constipation SNF as able Hb 8.8 Waiting for rehab placement Infected cyst/cellulitis of back-POA S/P debridement Blood Cx: 04/13: Coagulase-negative staph not lugdunensis--Likely contaminant Repeat blood cultures negative to date Appreciate surgery input Continue wound care, antibiotics Dementia with behavioral problem Acute metabolic encephalopathy/delirium in setting of dementia with behavioral disturbance Seroquel dose increased to 50 mg every morning, 100 mg nightly Added melatonin 3 mg at bedtime Appreciate psychiatry input Urinary retention S/P Villarreal placement -Failed trial of void twice since the surgery. -Villarreal placed again on 02/07. Continue Villarreal for now Continue tamsulosin Hypertension Continue amlodipine DVT Px: Lovenox SQ Code Status Full code Disposition SNF when accepted Admission and Anticipated Discharge Date Admission Date: February 02, 2022 Subjective Patient is seen and examined at bedside Doing well No agitation, off sitter Poor historian due to cognitive issues, hearing impairment Waiting for placement Review of Systems Review of Systems: Unobtainable due to cognitive status Physical Exam Physical Exam: Physical Exam: Vitals signs as noted above General Appearance:Moderately built and nourished, confused Head: normocephalic, Atraumatic Eyes: normal inspection, EOMI Neck: supple, Trachea midline Respiratory/Chest: Normal breath sounds, CTA, No accessory muscle use Cardiovascular: S1, S2, No murmur Abdomen/GI:Soft, Non tender, Bowel sounds present Extremities/Musculoskeletal:normal inspection, no edema, R hip surgical scar, Refused R shoulder/back exam Neurologic/Psych:AA, dementia, hearing impairment, grossly no focal neurological deficits Skin: normal color, warm Results & Data Results & Data ([facility]) Vital Signs (Past 12 Hours) Vital Signs Temp Pulse Resp BP BP Pulse Ox O2 Del Method 02/17/22 11:22 36.9 C 85 20 125/65 93 Room Air 02/17/22 06:00 36.7 C 72 18 148/57 H 94 Room Air 02/17/22 02:43 36.8 C 85 18 164/69 H 93 Room Air
[2022-02-17] MEDS: ENOXAPARIN INJ 40 MG/0.4 ML SYR SQ SCH (15:14)
[2022-02-17] MEDS: cefTRIAXone SODIUM 1,000 MG in DEXTROSE 5% 50 ML IV SCH (15:14)
[2022-02-17] MEDS: MELATONIN 3 MG TAB PO SCH (20:47)
[2022-02-17] MEDS: QUEtiapine FUMARATE 100 MG TABLET PO SCH (20:47)
[2022-02-17] MEDS: LATANOPROST 0.005% OP SOLN 2.5 ML BTL OPB SCH (20:48)
[2022-02-18] MEDS: ACETAMINOPHEN 325 MG TAB PO SCH (05:43)
[2022-02-18] MEDS ORDERED: cefUROXime axetil 250 MG TABLET PO SCH (09:00)
[2022-02-18] MEDS: QUEtiapine FUMARATE 25 MG TABLET PO SCH (09:04)
[2022-02-18] MEDS: FERROUS SULFATE 325 MG TAB PO SCH (09:04)
[2022-02-18] MEDS: UMECLIDINIUM/VILANTEROL 62.5/25MCG 7 PUFFS/INHALER INH SCH (09:04)
[2022-02-18] MEDS: TAMSULOSIN HCL 0.4 MG CAP PO SCH (09:04)
[2022-02-18] MEDS: PANTOprazole 40 MG TAB PO SCH (09:04)
[2022-02-18] MEDS: DOXYCYCLINE HYCLATE 100 MG CAP PO SCH (09:04)
[2022-02-18] MEDS: amLODIPine BESYLATE 5 MG TAB PO SCH (09:48)
--- NOTE | 2022-02-18 11:53 | Hospitalist Progress Note ---
Date of Service February 18, 2022 Assessment & Plan (1) Hip fracture, intertrochanteric: Plan: Patient is a 81 yr male with H/O CVA, COPD, hypertension, dementia presented from snf after a fall. He was found to have acute impacted right intertrochanteric fracture in outpatient pelvic x-ray. Patient is sent to the ED for evaluation. He was admitted to the telemetry floor; patient underwent right trochanteric nailing by orthopedic on 02/02. Mechanical fall Right intertrochanteric fracture status post nailing on 02/02 Postoperative blood loss anemia S/P PRBCs Toe-touch weightbearing Appreciate Orthopedics input Continue wound care Monitor CBC Bowel regimen to prevent constipation SNF as able Hb 8.8 Plan to discharge to SNF today Needs follow-up with orthopedics upon discharge Infected cyst/cellulitis of back-POA S/P debridement Blood Cx: 04/13: Coagulase-negative staph not lugdunensis--Likely contaminant Repeat blood cultures negative to date Appreciate surgery input Continue wound care, antibiotics Dementia with behavioral problem Acute metabolic encephalopathy/delirium in setting of dementia with behavioral disturbance Continue Seroquel 50 mg morning, 100 mg nightly Added melatonin 3 mg at bedtime Appreciate psychiatry input Needs follow up with Psychiatry upon discharge Urinary retention S/P Villarreal placement -Failed trial of void twice since the surgery. -Villarreal placed again on 02/07. Continue Villarreal for now Continue tamsulosin Needs followup with Urology as outpatient Hypertension Continue amlodipine DVT Px: Lovenox SQ Code Status Full code Disposition SNF Admission and Anticipated Discharge Date Admission Date: February 02, 2022 Subjective Patient is seen and examined at bedside Lying comfortably in bed Offers no complaints Poor historian due to cognitive issues, hearing impairment Denies chest pain, dyspnea, dizziness Has some right leg pain at surgical site Plan to discharge to SNF today Review of Systems Review of Systems: All systems reviewed & are unremarkable except as noted in Subjective Physical Exam Physical Exam: Physical Exam: Vitals signs as noted above General Appearance:Moderately built and nourished, confused Head: normocephalic, Atraumatic Eyes: normal inspection, EOMI Neck: supple, Trachea midline Respiratory/Chest: Normal breath sounds, CTA, No accessory muscle use Cardiovascular: S1, S2, No murmur Abdomen/GI:Soft, Non tender, Bowel sounds present Extremities/Musculoskeletal:normal inspection, no edema, R hip surgical scar healing Neurologic/Psych:AA, dementia, hearing impairment, grossly no focal neurological deficits Skin: normal color, warm Results & Data Results & Data ([facility]) Vital Signs (Past 12 Hours) Vital Signs Temp Pulse Resp BP BP BP Pulse Ox 02/18/22 10:17 36.9 C 76 20 121/52 L 148/61 H 108/66 92 02/18/22 08:02 36.9 C 76 20 148/61 H 92 O2 Del Method 02/18/22 10:17 02/18/22 08:02 Room Air
--- NOTE | 2022-02-18 12:18 | Discharge Summary ---
Date of Service February 18, 2022 Admission HPI Per Admitting Provider History obtained from patient, family, and records. Limited history from patient secondary to dementia. Medical history significant for CVA, COPD, pulmonary hypertension, chronic anemia (baseline hemoglobin of 10), dementia, past tobacco abuse. Patient fell on the ground trying to sit down on a chair at the longterm yesterday as per longterm staff. Achy right hip pain, patient had trouble getting up. Head trauma, no LOC, no chest pain, no SOB. Outpatient pelvis x-ray showed acute impacted right intertrochanteric fracture. Patient sent to the ER for evaluation. SBP noted to be 180s at the ER. 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, longterm resident Admission Exam Per Admitting Provider Physical Exam Physical Exam: GENERAL: Demented, uncomfortable, hard of hearing, no respiratory distress SKIN: Normal color, warm HEENT: Parc palpebral conjunctivae, no ptosis, dry buccal mucosa NECK : Supple, no tenderness CHEST : Decreased breath sounds, no tenderness HEART : RRR, no obvious murmurs ABDOMEN: Some distention, nontender EXTREMITIES : Right hip tenderness, minimal LE swelling, no other conspicuous deformities noted NEUROLOGIC : Demented, no facial asymmetry, gait and stance not assessed Principal Diagnosis Right Intertrochanteric Hip Fracture Infected cyst/cellulitis of back Dementia with behavioral problem Urinary retention Discharge Data Allergies Allergy/AdvReac Type Severity Reaction Status Date / Time fluticasone Allergy Unknown ON MED LIST Verified 02/01/22 23:57 [From Advair Diskus] salmeterol Allergy Unknown ON MED LIST Verified 02/01/22 23:57 [From Advair Diskus] Consultations 02/02/22 01:02 ED Decision to Admit Stat 02/02/22 03:06 Consult Orthopedic Surgery Routine 02/07/22 12:57 Consult Psychiatry Routine 02/14/22 10:36 Consult General Surgery Routine Procedures Performed Operation Date: 02/02/22 08:10 Actual Procedures p Right Trochanteric Nail (Right) - Spenser Webb, Laboratory Results WBC 6.35 K/ul (4.8-10.8) 02/15/22 08:27 RBC 2.80 M/uL (4.63-6.08) L 11/08/22 08:27 Hgb 8.8 g/dl (14.0-18.0) L 02/15/22 08:27 Hct 26.7 % (40.1-51.0) L 02/15/22 08:27 MCV 95.4 fL (80.0-100.0) 02/15/22 08:27 MCH 31.4 pg (25.0-34.0) 02/15/22 08: MCHC 33.0 g/dL (32.0-36.0) 02/15/22 08: RDW Std Deviation 49.9 fL (36.4-46.3) H 02/15/22 08: RDW Coeff of Silvino 14.2 % (11.5-14.5) 02/15/22 08: Plt Count 414 K/uL (130-400) H 02/15/22 08: MPV 8.7 fL (9.4-12.4) L 02/15/22 08:27 Immature Gran % (Auto) 0.4 % 02/09/22 05:45 Neut % (Auto) 78.0 % 02/09/22 05:45 Lymph % (Auto) 10.5 % 02/09/22 05:45 [place] % (Auto) 10.5 % 02/09/22 05:45 Eos % (Auto) 0.4 % 02/09/22 05:45 Baso % (Auto) 0.2 % 02/09/22 05:45 Neut # (Auto) 7.08 K/uL (1.4-6.5) H 02/09/22 05:45 Lymph # (Auto) 0.96 K/uL (1.2-3.4) L 02/09/22 05:45 [place] # (Auto) 0.96 K/uL (0.24-0.82) H 02/09/22 05:45 Eos # (Auto) 0.04 K/uL (0-0.50) 02/09/22 05:45 Baso # (Auto) 0.02 K/uL (0-0.2) 02/09/22 05:45 Immature Gran # (Auto) 0.04 K/uL (0.00-0.02) H 02/09/22 05:45 Toxic Granulation 1+ 02/04/22 06:14 RBC Morphology Unremarkable 02/07/22 06:09 Polychromasia 1+ 02/09/22 05:45 Poikilocytosis Present 02/05/22 06:57 PT 10.9 Seconds (9.0-12.0) 02/01/22 23:35 INR 1.0 (0.9-1.1) 02/01/22 23:35 APTT 33.6 Seconds (21.0-31.0) H 02/01/22 23:35 PTT Ratio 1.2 02/01/22 23:35 Sodium 136 mmol/L (136-145) 02/15/22 08:27 Potassium 4.3 mmol/L (3.5-5.1) 02/15/22 08:27 Chloride 104 mmol/L (98-107) 02/15/22 08:27 Carbon Dioxide 27 mmol/L (21-32) 02/15/22 08:27 Anion Gap 5 (3-11) 02/15/22 08:27 BUN 24 mg/dl (6-23) H 02/15/22 08:27 Creatinine 0.88 mg/dl (0.6-1.4) 02/15/22 08:27 Est Cr Clr Drug Dosing 66.5 ml/min 02/15/22 08:27 Est GFR ( Amer) 94.7 ml/min 02/15/22 08:27 Est GFR (Non-Af Amer) 81.7 ml/min 02/15/22 08:27 BUN/Creatinine Ratio 27.3 (10-20) H 02/15/22 08:27 Glucose 124 mg/dl (70-99(Fasting)) H 02/15/22 08:27 Estimat Average Glucose 108 mg/dl 02/01/22 23:35 Hemoglobin A1c 5.4 % (4.5-5.6) 02/01/22 23:35 Calcium 8.2 mg/dl (8.5-10.1) L 02/15/22 08:27 Magnesium 2.0 mg/dl (1.7-2.4) 02/02/22 01:28 Total Bilirubin 2.2 mg/dl (0.2-1.0) H 02/08/22 09:41 AST 17 U/L (13-39) 02/08/22 09:41 ALT 14 U/L (7-52) 02/08/22 09:41 Alkaline Phosphatase 53 U/L (34-104) 02/08/22 09:41 Total Protein 5.0 gm/dl (6.0-8.3) L 02/08/22 09:41 Albumin 2.8 gm/dl (3.4-5.0) L 02/08/22 09:41 Globulin 2.2 gm/dl (2.5-4.0) L 02/08/22 09:41 Albumin/Globulin Ratio 1.3 (0.9-2) 02/08/22 09:41 25-OH Vitamin D Total 44.2 ng/ml (30-100) 02/03/22 06:40 TSH 2.501 uIu/ml (0.300-4.500) 02/01/22 23:35 Urine Color Yellow 02/01/22 23:55 Urine Appearance Clear (Clear) 02/01/22 23:55 Urine pH 7.5 (4.5-7.5) 02/01/22 23:55 Ur Specific [place] 1.017 (1.000-1.030) 02/01/22 23:55 Urine Protein Negative (Negative) 02/01/22 23:55 Urine Glucose (UA) Negative (Negative) 02/01/22 23:55 Urine Ketones Negative (Negative) 02/01/22 23:55 Urine Blood Negative (Negative) 02/01/22 23:55 Urine Nitrite Negative (Negative) 02/01/22 23:55 Urine Bilirubin Negative (Negative) 02/01/22 23:55 Urine Urobilinogen Negative (Negative) 02/01/22 23:55 Ur Leukocyte Esterase Negative (Negative) 02/01/22 23:55 Nasal Screen MRSA (PCR) Negative (Negative) 02/09/22 23:08 Stool Occult Bld Scrn Negative (Negative) 02/05/22 16:30 SARS-CoV-2, RNA, NAAT NEGATIVE (NEGATIVE) 02/17/22 Unknown Staphylococcus sp PCR DETECTED (NotDetected) A 02/13/22 14:51 mecA/C-Methicil Resis Gene Not Detected (NotDetected) 02/13/22 14:51 Staph epidermidis (PCR) DETECTED (NotDetected) A 02/13/22 14:51 Bld Cult ID Panel PCR See PCR Comment (NotDetected) 02/13/22 14:51 Blood Type O Positive 02/11/22 09:36 Blood Type Recheck O Positive 02/02/22 11:14 Antibody Screen NEGATIVE 02/11/22 09:36 Crossmatch See Detail 02/11/22 09:36 Impressions Chest X-Ray 02/01/22 23:25 XR chest 1V portable HISTORY: 81 years-old Male hip fx acute chest trauma status post fall COMPARISON: None TECHNIQUE: Supine AP view of the chest FINDINGS: Cardiac silhouette is mildly enlarged. 2 cm right midlung nodular opacity. No pneumothorax, pleural effusion, airspace consolidation or overt pulmonary edema. Bones appear grossly intact. IMPRESSION: 1. Mild cardiac megaly without acute process. 2. 2 mm right midlung nodular opacity is likely related to summation density with overlying pulmonary vasculature. A pulmonary nodule is considered less likely. Correlate with prior imaging. ACT 112: Negative or not required by law. The above report was generated using voice recognition software. It may contain grammatical, syntax or spelling errors. Electronically signed by: Spenser Chavez M.D. 02/02/2022 8:01 AM Hip X-Ray 02/02/22 15:30 INTRAOPERATIVE RADIOGRAPHS CLINICAL HISTORY: Open reduction and internal fixation of the right hip. Fluoroscopy time: 108 seconds. FINDINGS: 5 spot fluoroscopic views of the right hip are correlated with radiographs dated 02/02/2022. Intertrochanteric and intramedullary nails are placed transfixing an intertrochanteric fracture of the right proximal femur. Near anatomic alignment is restored. A single cortical lag screw transfixes the distal end of the intramedullary nail. The orthopedic hardware appears intact. IMPRESSION: Intraoperative images from open reduction and interval fixation of the right proximal femur. Electronically signed by: Martin Angulo M.D. 02/02/2022 8:41 PM Ordered Studies 02/02/22 15:30 FL hip RT 2-3V Routine Hospital Course (1) Hip fracture, intertrochanteric: Patient is a 81 yr male with H/O CVA, COPD, hypertension, dementia presented from longterm after a fall. He was found to have acute impacted right intertrochanteric fracture in outpatient pelvic x-ray. Patient is sent to the ED for evaluation. He was admitted to the telemetry floor; patient underwent right trochanteric nailing by orthopedic on 02/02. Mechanical fall Right intertrochanteric fracture status post nailing on 02/02 Postoperative blood loss anemia S/P PRBCs Toe-touch weightbearing Appreciate Orthopedics input Continue wound care Monitor CBC Bowel regimen to prevent constipation SNF as able Hb 8.8 Plan to discharge to SNF today Needs follow-up with orthopedics upon discharge Infected cyst/cellulitis of back-POA S/P debridement Blood Cx: 04/13: Coagulase-negative staph not lugdunensis--Likely contaminant Repeat blood cultures negative to date Appreciate surgery input Continue wound care, antibiotics Dementia with behavioral problem Acute metabolic encephalopathy/delirium in setting of dementia with behavioral disturbance Continue Seroquel 50 mg morning, 100 mg nightly Added melatonin 3 mg at bedtime Appreciate psychiatry input Needs follow up with Psychiatry upon discharge Urinary retention S/P Villarreal placement -Failed trial of void twice since the surgery. -Villarreal placed again on 02/07. Continue Villarreal for now Continue tamsulosin Needs followup with Urology as outpatient Hypertension Continue amlodipine DVT Px: Lovenox SQ Code Status Full code Disposition SNF Total Time Total Time Spent Total Time Spent (In Minutes): 45 minutes Discharge Plan Discharge Items Patient Disposition: Transfer Residential Fac Reason For Visit: HTN URG, R HIP FX Discharge Diagnosis: Right Intertrochanteric Hip Fracture Infected cyst/cellulitis of back Dementia with behavioral problem Urinary retention Activity: Per Instructions section Exercise/Sports: Gradually increase as tolerated Weightbearing: Right toe touch Weightbearing Comment: TTWB with walker RLE Non-emergency contact: Primary Care Provider, Surgeon, Urologist and Psychiatrist Call non-emergency contact if: you have any medication questions, your temperature is above 101.5, your wound has increased redness and your wound has increased drainage Follow-up/Referrals: Marie Martin [Primary Care Provider] - Spenser Webb DO [Surgeon] - (Follow up with Dr. Webb 2 weeks from the day of your surgery for your first post operative visit.) Diet: Regular Addtl Attending Provider Instructions: Follow up with your Primary Care physician in 1 week Follow up with your Orthopedic Surgeon Dr.Joshua Webb in 1-2 week as advised Follow up with your Urologist for further management of Urinary retention Follow up with your Psychiatrist in 2 weeks -- Complete antibiotic course as prescribed. -- Can do voiding trial for urinary retention as outpatient. If fails, will need to replace Villarreal catheter and follow-up with urology. -- Continue Lovenox 40mg SQ daily for 2 more weeks for DVT prophylaxis. --Final blood cultures are pending at the time of discharge. Follow-up with your physician for results. Seek immediate medical attention if your symptoms reoccur or worsen Please take all medications as instructed on discharge list below. Please call if you have any questions or problems. You can reach a [facility] hospitalist on duty at [facility] [address] 24 hours a day by calling [phone] [facility] Crystalizer Operator Provider Instructions: UOC DISCHARGE INSTRUCTIONS: HIP FRACTURE SELF CARE INSTRUCTIONS: A. You are to ambulate with a walker or crutches for approximately 6 weeks. B. You are TOE TOUCH WEIGHT BEARING on your operative lower extremity for at least 6 weeks. C. Wear low heeled shoes with non-slip soles D. Be sure that your floors are free of things that could trip you throw rugs, electrical cords, and small objects. Avoid wet and waxed floors, especially with crutches/walker/cane. E. Try to walk several times a day with rest periods between. F. You may shower 48 hours after surgery and get the incision area wet, but DO NOT soak or submerge incision area in water. (No baths, swimming pools, hot tubs) G. You may have a large, band-aid like dressing over your incision (Aquacel). This will remain on your incision for 7 days, and then can be removed. You CAN shower with this on. If incision is leaking through the dressing, please call the office . H. Do NOT apply soap or any ointment/lotions directly over incision. I. You may use ice as needed to operative site. SPECIAL CARE INSTRUCTIONS: VERY IMPORTANT TO READ AND REVIEW A. You may be at risk for phlebitis or blood clots. a. Wear surgical stockings (MYNOR hose) for 2 weeks after surgery to improve circulation and reduce swelling. b. Take LOVENOX 40mg SQ daily for 4 weeks or as directed. This is your blood thinner. B. There are a few signs you need to watch for after you are home. Call [facility] at [phone] if you experience any of the following: a. If you have a temperature of 101 degrees or higher. b. Sudden increase in pain in your hip not relieved by rest or pain medication. c. Any fluid or drainage from the incision; redness of the incision. d. Shortness of breath or chest pain. C. Call your physician if: a. Temperature is greater than 101 degrees (F). b. Pain is not relieved by prescribed pain medications. c. Increase drainage or redness from incision. d. Unanswered questions or concerns. D. Pain Medication: a. You will be prescribed pain medication upon discharge that should last till your first post-operative appointment. b. If you experience nausea and/or skin rash, discontinue this medication and contact our office for an alternative medication. c. Caution- narcotic pain medication can cause consti pation. FOLLOW UP VISIT: Please call [facility] at [phone] to schedule a follow up appointment 10-14 days from the date of your surgery date. Pending Studies at Discharge: Yes Stand-Alone Forms: My [facility] Skilled Items Patient informed of condition?: Yes DNR: No Discharge Level of Care: Skilled Communicable Disease: No Discharge Prognosis: Stable Lines: None Urinary Catheter: Yes Medications and DC Order Prescriptions: New cefuroxime axetil 250 mg Tablet 250 mg PO BID Qty: 8 0RF doxycycline hyclate 100 mg Capsule 100 mg PO BID@1000,2200 Qty: 8 0RF enoxaparin [Lovenox] 40 mg/0.4 mL Syringe 40 mg subcut Q24H 14 Days Qty: 5.6 0RF amlodipine [Norvasc] 5 mg Tablet 2.5 mg PO QAM Qty: 30 0RF quetiapine 25 mg Tablet 12.5 mg PO BID PRN (Reason: agitation) Qty: 10 0RF melatonin 3 mg Tablet 3 mg PO HS Qty: 30 1RF Continued latanoprost 0.005 % Drops 1 drp OPB PM acetaminophen [Tylenol] 325 mg Tablet 650 mg PO Q6H MDD 3 GRAMS/24 HOURS PRN (Reason: FEVER/PAIN) ascorbic acid (vitamin C) [Vitamin C] 500 mg Tablet 500 mg PO DAILY tamsulosin [Flomax] 0.4 mg Capsule 0.4 mg PO DAILY ferrous sulfate 325 mg (65 mg iron) Tablet 325 mg PO DAILY omeprazole 20 mg Capsule,Delayed Release(Dr/Ec) 20 mg PO DAILY albuterol sulfate [Ventolin HFA] 90 mcg/actuation Hfa Aerosol Inhaler 2 puff INHALATION Q6H PRN (Reason: Wheezing) tadalafil 5 mg Tablet 5 mg PO HS Anoro Ellipta 62.5-25 mcg/actuation Blister With Device 1 inh INHALATION DAILY Changed quetiapine [Seroquel XR] 50 mg Tablet Extended Release 24 Hr 50 mg PO UD Qty: 1 0RF Rx Instructions: Quetiapine 50 mg every morning, 100 mg at bedtime Discontinued haloperidol lactate 2 mg/mL Concentrate 2 mg PO Q8H PRN (Reason: Agitation) Discharge Orders: Discharge Order (Routine); Ordered 02/18/22 Ordered By: Jacob Marroquin/Other Patient Handouts: Anemia, Understanding Hip Fractures Admission Data Admit Date/Time: 02/02/22 01:41 Attending Provider: Jacob Lizama Admit Provider: Candelario Campos Primary Care Provider: Marie Martin Other Providers: Mario, ; Candelario Campos ; Tristan Esteves ; Adrian Silveira ; Jayant Mcneal ; Itzel Mcconnell ; Lazaro Magana ; Nataliya Meza ; Tolu Benson ; Keon Delvalle ; Arsalan Spencer Andrew J. ; Keon Guerra ; Kapil Oseguera ; Alex Alonzo ; Santana Lanier ; Nataliya Kelly ; Miguel Angel Bragg ; Josi Keating ; James Alaniz ; Damaris Carias ; Spenser Webb ; Maggie Chester ; Dinorah Marshall ; Kourtney Barrow ; Yelena Cerda ; Maik Britt ; Arsalan Nava ; Doris Huynh ; Neha Reece ; Ole Rowe ; Kapil Hyde ; Alem Stearns ; Deandra Centeno ; Michael Medina Jr ; Lissette Morley ; Robert Birmingham ; Joanna Hollingsworth Other Interventions: Discharge Summary Assessment (RN) Last Done: 02/18/22 10:17
== END 2022-02-18 13:10 | DRG 480 ==
LOC: ED 23:09 → 4W 02-02 01:41 → SUATTDRO 02-02 01:41 → 4W 02-02 02:20 → 2W 02-03 17:34